=== PATIENT | male | born 1990 | race Caucasian/White ===

== ENCOUNTER 2020-08-04 20:56 | Inpatient (IN) ==
[2020-08-04] MEDS ORDERED: IOPAMIDOL 100 ML BOTTLE IV ONE (20:57)
[2020-08-04] MEDS ORDERED: ONDANSETRON 4 MG/2 ML VIAL IV ONE (21:30)
[2020-08-04] MEDS ORDERED: 0.9 % SODIUM CHLORIDE 2,000 ML IV ONE (21:30)
[2020-08-04] MEDS ORDERED: VANCOMYCIN 2,000 MG in 0.9 % SODIUM CHLORIDE 500 ML IV ONE (21:30)
[2020-08-04] MEDS ORDERED: cefTRIAXone 2 GM in DEXTROSE 5% IN WATER 50 ML IV ONE (21:32)
[2020-08-04] MEDS ORDERED: ACETAMINOPHEN 1,000 MG/100 ML BAG IV ONE (21:35)
[2020-08-04] MEDS ORDERED: KETOROLAC 30 MG/ML VIAL IV ONE (21:36)
--- NOTE | 2020-08-04 21:43 | Emergency Department Note ---
Skin/Abscess/FB HPI General Chief complaint: Skin/Abscess/Rash Stated complaint: IV drug use infection Time Seen by Provider: 08/04/20 21:15 Source: patient Mode of arrival: ambulatory Limitations: no limitations History of Present Illness HPI Narrative: This is a 30-year-old male with a history of IV drug use (heroin) with last injection to the left upper extremity 5 days ago who developed left upper extremity cellulitis over the last few days with with associated chills and sweats. He reports withdrawal symptoms and has been having frequent diarrhea and 2 episodes of urinary incontinence. He denies abdominal pain, dysuria. He's had frequent episodes of lightheadedness and dizziness. He is also endorsing "hallucinations." He denies other illicit drug use and uses marijuana moderately. He does not drink alcohol. He is also complaining of some left anterior knee pain that started yesterday. He thinks he might of fallen but cannot remember. He endorses painful range of motion. No swelling in the knee. No previous injuries or surgeries to that knee. His remaining past medical history is unremarkable. He has not been through rehab before, but is interested in pursuing a drug rehabilitation program. He lives locally with a friend's grandmother. His mother is also here locally. Related Data Home Medications Medication Instructions Recorded Confirmed No Known Home Meds 07/11/16 08/04/20 Allergies Allergy/AdvReac Type Severity Reaction Status Date / Time No Known Drug Allergies Allergy Verified 07/11/16 14:18 Review of Systems ROS ROS Narrative: Narrative: All systems ED: reviewed and negative except as stated. [facility] Narrative Patient History Narrative: Narrative: Medical/Surgical/Family History All Active Problems Laceration (Acute) Sepsis (Acute) Cellulitis (Acute) IVDU (intravenous drug user) (Acute) Medical History Laceration (Acute) Social History Smoking Status: Current every day smoker Exam Narrative Narrative: General: AOx3, NAD, ill appearing. Following commands. Conversant. HEENT: PERRLA, EOMI, normocephalic. Dry mucous membranes. Normal facies and several fractured teeth are noted. Multiple excoriations to the face. Chest: Symmetric Respiratory: No respiratory distress. Unlabored breathing. Heart: Tachycardia with regular rhythm. Abdomen: Non-tender, Non distended. No organomegaly. Extremities: Warm and well perfused. No edema. DP 2+ bilaterally. Notable left upper extremity erythema extending from the dorsal aspect of the upper e xtremity circumferentially to the palm of the left hand. There is significant warmth to the touch and swelling but no fluctuance, open wounds or drainage. Left knee: Warm to the touch. No erythema, no effusion. Pain with palpation and compression of the patella. Painful knee extension and flexion. Neuro: No focal deficits. Cranial nerves II-XII normal. Skin: Warm dry, no rashes or lesions, no cyanosis. Psych: Normal mood and affect Heme/Lymph: No bruising General Limitations: no limitations Course Course Course Narrative: 30-year-old male with a history of IV drug use presents with criteria for sepsis. Reevaluation(s) Reevaluation #1: Patient is febrile to 101.6 with a pulse of 112 bpm. He has a clear cellulitis of the left upper extremity without obvious fluctuance or abscess formation. -Obtain blood cultures x2, UA and urine drug screen -Basic lab work and CRP -Antipyretics/analgesics for pain and fever -Obtain x-ray of the left knee -Obtain left upper extremity soft tissue ultrasound to query for abscess -Start vancomycin and ceftriaxone IV antibiotics now -Give 2 L IV fluid resuscitation Vital Signs Vital signs: Vital Signs Temperature 101.6 F H 08/04/20 20:57 Pulse Rate 112 H 08/04/20 20:57 Respiratory Rate 18 08/04/20 20:57 Blood Pressure 117/80 08/04/20 20:57 Pulse Oximetry (%) 98 08/04/20 20:57 Temperature 101.6 F H 08/04/20 20:57 Pulse Rate 94 H 08/04/20 22:33 Respiratory Rate 18 08/04/20 20:57 Blood Pressure 113/67 08/04/20 22:32 Pulse Oximetry (%) 96 08/04/20 22:33 [facility] Narrative Medical decision making narrative: Sepsis Left upper extremity cellulitis Recent IV drug use Patient is being worked up for sepsis with blood cultures x2 pending. He has been started on IV antibiotics and IV fluids for resuscitation. A left knee x- ray and left upper extremity ultrasound are pending. The patient is signed out to Dr. De La Cruz at change of shift. Please see his note for further details. Lab Data Result diagrams: 08/04/20 21:35 08/04/20 21:35 Discharge Plan Patient/Caregiver Discharge Instructions Pt seen by WORKERS' COMPENSATION HEARINGS OFFICER/PA only: Yes Clinical Impression: Sepsis, Cellulitis, IVDU (intravenous drug user) Patient Disposition: Still a Patient Follow up with: No,PCP [Primary Care Provider] - Prescriptions: No Action No Known Home Meds RF: 0
[2020-08-04] MEDS ORDERED: APIXABAN 5 MG TABLET PO ONE (22:26)
[2020-08-04 23:00] LABS: Hematocrit 30.5 % (41.0-55.0); Hemoglobin 11.1 g/dL (13.5-16.5); Mean Cell Volume 77.8 fL (80.0-100.0); Mean Corpuscular HGB Conc 36.4 g/dL (31.0-36.0); Mean Platelet Volume 11.7 fL (7.4-10.4); Platelet Count 122 K/mcL (140-440); RBC 3.92 M/mcL (4.50-5.90); Red Cell Distribution Width 12.5 % (11.5-14.5); WBC 19.7 K/mcL (4.5-11.0)
--- NOTE | 2020-08-04 23:02 | Emergency Department Note ---
Skin/Abscess/FB HPI General Chief complaint: Skin/Abscess/Rash Stated complaint: IV drug use infection Time Seen by Provider: 08/04/20 21:15 Source: patient Mode of arrival: ambulatory Limitations: no limitations History of Present Illness HPI Narrative: Narrative: See dictated history and physical by Jessica Patel PA-C. I have reviewed that documentation and agree with it. I have seen and examined patient myself. He gives a history of rigors and sweatiness in the past 5 days. He has not previously been in Suboxone clinics, inpatient treatment, etc. His last use of heroin was IV through his left cubital space area. Scabs on his nose and ear began around 5 or 6 days ago and he is not certain what has caused these. Related Data Home Medications Medication Instructions Recorded Confirmed No Known Home Meds 07/11/16 08/04/20 Allergies Allergy/AdvReac Type Severity Reaction Status Date / Time No Known Drug Allergies Allergy Verified 07/11/16 14:18 Review of Systems ROS ROS Narrative: Narrative: [facility] Narrative Patient History Narrative: Narrative: Medical/Surgical/Family History All Active Problems Deep vein thrombosis (DVT) of left upper extremity (Acute) Heroin withdrawal (Acute) Hyponatremia (Acute) Hypokalemia (Acute) Acute dehydration (Acute) Anemia (Acute) Laceration (Acute) Sepsis (Acute) Cellulitis (Acute) IVDU (intravenous drug user) (Acute) Medical History Laceration (Acute) Social History Smoking Status: Current every day smoker Substance Use: heroin (last use 07/30/2020 reported on 08/04/2020.) Exam Narrative Narrative: Narrative: Patient seems somewhat saddened to serious but does eventually make better eye contact. He admits to being frustrated and concerned with his circumstance. CV: Regular without tachycardia. I believe I can hear a trace early systolic murmur at the left upper sternal border. Lungs: Clear to auscultation. Occasional wet cough. Derm: Has a scab in the right nare that is fairly superficial but seems to extend all the way around it. He has a scab on the left pinna of similar size about dime sized in diameter at maximum diameter. Fairly superficial. Not oozing. Extremities: Left forearm is indeed significantly swollen with some, circumferential erythema/warmth. Distal hand sensation intact and movements intact. He is able to squeeze hand without difficulty. General Limitations: no limitations Course Vital Signs Vital signs: Vital Signs Temperature 101.6 F H 08/04/20 20:57 Pulse Rate 112 H 08/04/20 20:57 Respiratory Rate 18 08/04/20 20:57 Blood Pressure 117/80 08/04/20 20:57 Pulse Oximetry (%) 98 08/04/20 20:57 Temperature 98.1 F 08/05/20 00:54 Pulse Rate 70 08/05/20 01:48 Respiratory Rate 18 08/04/20 20:57 Blood Pressure 104/58 08/05/20 01:30 Pulse Oximetry (%) 97 08/05/20 01:48 MDM MDM Narrative Medical decision making narrative: Narrative: Cellulitis and DVT of the left upper extremity. Appears to also have been experiencing heroin withdrawals these last 5 days. He continues to have severe body aches, some rigors occurred earlier today, some sweatiness as well earlier today. It seems unlikely that this is due to subacute bacterial endocarditis although this is still a possibility. He is not tachycardic. He does not have an elevated lactic acid (1.6). More likely is withdrawals although current complaint primarily generalized body achiness. He has several scabs, right nare and left pinna. We will add mupirocin to these. 10:23 PM - I spoke with Dr. Lo regarding this individual's DVT pattern and pitcher and circumstance. He feels that giving him anticoagulation such as Eliquis for a few days and see if he improves it is appropriate treatment for now. He does not recommend interventional actions. I briefly discussed with patient Gretel. I witnessed him swallowing 2 pills of 5 mg each of apixaban. 12:10 AM approximately - CMP had not come back. Called to the lab made. They soon called back with a critical 114 sodium. POC Chem-8 ordered. 12:30 AM - BUN 39, creatinine 1.4. Patient has had 1 L. We will give a second liter. 12:37 AM - Chem-8 comes back with potassium 2.3 (was 2.7) and sodium at 120 (was 114). We will go with an oral potassium chloride 20, and 80 of potassium rider. Patient has accepted that he does need to stay in the hospital. Notification sent to nursing staff re: need to speak with hospitalist. 1:05 AM - I spoke with Dr. Storm, hospitalist, who recommends that we do a CT scan of the arm to rule out any deeper seeded abscess or unusual abnormalities. He also recommend switching to D5 water to make his sodium go back down a little bit for a slower gradual increase. If the CT scan is negative, admission with antibiotics, Minong 5 and lorazepam as needed for withdrawals, and morning labs. urine and serum osmolality plus random urine sodium ordered. 2:35 AM - CT result still pending, as is UA. Patient was unable to void for quiet a long period. Bladder scan demonstrated over 400 cc's. 2:50 PM - CT initial preliminary report includes 1. CT findings consistent with superficial thrombophlebitis. 2. There is diffuse subcutaneous edema with skin thickening and a fluid extending to the fascial plane. 1 defined fluid collection at the elbow medially measures 2 cm. 3. Diffuse thrombus throughout the superficial veins in the forearm. 4. Follow-up ultrasound is suggested to evaluate for more proximal disease. Urine drug screen comes back with positive on opiates and positive on amphetamines. See transfer orders for patient's admission to the floor. Lab Data Result diagrams: 08/04/20 21:35 08/04/20 21:35 Labs: Lab Results 08/04/20 08/04/20 08/04/20 Range/Units 21:35 21:35 21:35 WBC 19.7 H (4.5-11.0) K/mcL RBC 3.92 L (4.50-5.90) M/mcL Hgb 11.1 L (13.5-16.5) g/dL Hct 30.5 L (41.0-55.0) % POC Hct (41-55) % MCV 77.8 L (80.0-100.0) fL MCH 28.3 (26.0-34.0) pg MCHC 36.4 H (31.0-36.0) g/dL RDW 12.5 (11.5-14.5) % Plt Count 122 L (140-440) K/mcL MPV 11.7 H (7.4-10.4) fL Seg Neutrophils % 82 H (38-78) % Band Neutrophils % 4 (0-10) % Lymphocytes % 6 L (15-49) % Monocytes % (Manual) 8 (1-12) % Toxic Granulation 1+ A (None Seen) Platelet Estimate Decreased A (Normal) RBC Morphology Abnormal A (Normal) Microcytosis 1+ A (None Seen) POC Sodium (133-145) mEq/L Sodium 114 L* (133-145) mmol/L POC Potassium (3.3-5.1) mEql/L Potassium 2.7 L* (3.3-5.1) mmol/L POC Chloride (96-108) mEq/L Chloride 76 L (96-108) mmol/L Carbon Dioxide 20 L (22-30) mmol/L POC Total CO2 (22-30) mmol/L Anion Gap 18.0 H (8.0-16.0) POC BUN (6-20) mg/dL BUN 39 H (6-20) mg/dL Creatinine 1.4 H (0.7-1.2) mg/dL POC Creatinine (0.6-1.2) mg/dL GFR Calculation 67 Glucose 97 (70-105) mg/dL POC Glucose (70-105) mg/dL Osmolality (280-300) mOSM/kg Calcium 7.2 L (8.6-10.4) mg/dL POC WB Ioniz Calcium (1.16-1.32) mmEq/L Total Bilirubin 1.9 H (0.1-1.0) mg/dL AST 190 H (<40) U/L ALT 85 H (<40) U/L Alkaline Phosphatase 140 H (39-117) U/L Total Creatine Kinase (24-195) U/L C-Reactive Protein 14.20 H (0.03-0.80) mg/dL Total Protein 6.2 (5.9-8.4) gm/dL Albumin 2.9 L (3.2-5.2) gm/dL Globulin 3.3 (2.2-3.7) gm/dL Albumin/Globulin Ratio 0.9 L (1.0-2.3) 08/04/20 08/04/20 08/05/20 Range/Units 21:35 21:35 00:11 WBC (4.5-11.0) K/mcL RBC (4.50-5.90) M/mcL Hgb (13.5-16.5) g/dL Hct (41.0-55.0) % POC Hct 28 L (41-55) % MCV (80.0-100.0) fL MCH (26.0-34.0) pg MCHC (31.0-36.0) g/dL RDW (11.5-14.5) % Plt Count (140-440) K/mcL MPV (7.4-10.4) fL Seg Neutrophils % (38-78) % Band Neutrophils % (0-10) % Lymphocytes % (15-49) % Monocytes % (Manual) (1-12) % Toxic Granulation (None Seen) Platelet Estimate (Normal) RBC Morphology (Normal) Microcytosis (None Seen) POC Sodium 120 L (133-145) mEq/L Sodium (133-145) mmol/L POC Potassium 2.3 L* (3.3-5.1) mEql/L Potassium (3.3-5.1) mmol/L POC Chloride 89 L (96-108) mEq/L Chloride (96-108) mmol/L Carbon Dioxide (22-30) mmol/L POC Total CO2 18 L (22-30) mmol/L Anion Gap (8.0-16.0) POC BUN 33 H (6-20) mg/dL BUN (6-20) mg/dL Creatinine (0.7-1.2) mg/dL POC Creatinine 1.6 H (0.6-1.2) mg/dL GFR Calculation Glucose (70-105) mg/dL POC Glucose 100 (70-105) mg/dL Osmolality 252 L (280-300) mOSM/kg Calcium (8.6-10.4) mg/dL POC WB Ioniz Calcium 0.89 L (1.16-1.32) mmEq/L Total Bilirubin (0.1-1.0) mg/dL AST (<40) U/L ALT (<40) U/L Alkaline Phosphatase (39-117) U/L Total Creatine Kinase 33 (24-195) U/L C-Reactive Protein (0.03-0.80) mg/dL Total Protein (5.9-8.4) gm/dL Albumin (3.2-5.2) gm/dL Globulin (2.2-3.7) gm/dL Albumin/Globulin Ratio (1.0-2.3) Discharge Plan Patient/Caregiver Discharge Instructions Pt seen by BIOLOGY PROFESSOR/PA only: Yes Clinical Impression: Sepsis, Cellulitis, IVDU (intravenous drug user), Deep vein thrombosis (DVT) of left upper extremity, Heroin withdrawal, Hyponatremia, Hypokalemia, Acute dehydration, Anemia Patient Disposition: Xfer As Inpt ([facility]) Follow up with: No,PCP [Primary Care Provider] - Prescriptions: No Action No Known Home Meds RF: 0
[2020-08-04] MEDS ORDERED: MUPIROCIN OINT 2% 22GM TOPICAL ONE (23:13)
[2020-08-04 23:20] LABS: Band Neutrophils % 4 % (0-10); Lymphocytes % 6 % (15-49); Microcytosis 1+ (None Seen); Monocytes % (Manual) 8 % (1-12); Platelet Estimate DECREASED (Normal); RBC Morphology ABNORMAL (Normal); Segmented Neutrophils % 82 % (38-78); Toxic Granulation 1+ (None Seen)
[2020-08-05 00:10] LABS: ALT/SGPT 85 U/L (<40); AST/SGOT 190 U/L (<40); Albumin 2.9 gm/dL (3.2-5.2); Albumin/Globulin Ratio 0.9 (1.0-2.3); Alkaline Phosphatase 140 U/L (39-117); Bilirubin,Total 1.9 mg/dL (0.1-1.0); Blood Urea Nitrogen 39 mg/dL (6-20); Calcium 7.2 mg/dL (8.6-10.4); Carbon Dioxide 20 mmol/L (22-30); Chloride 76 mmol/L (96-108); Globulin 3.3 gm/dL (2.2-3.7); Glomerular Filtration Rate 67; Glucose 97 mg/dL (70-105)
[2020-08-05] MEDS ORDERED: cloNIDine HCL 0.1 MG TABLET PO SCH (00:15)
[2020-08-05] MEDS ORDERED: 0.9 % SODIUM CHLORIDE 1,000 ML IV ONE (00:31)
[2020-08-05] MEDS ORDERED: POTASSIUM CHLORIDE 40 MEQ in DEXTROSE 5% IN WATER 500 ML IV ONE (00:34)
[2020-08-05] MEDS ORDERED: POTASSIUM CHLORIDE 20 MEQ TABLET PO ONE ×3 (00:34→13:06)
[2020-08-05 00:35] LABS: POC Blood Urea Nitrogen 33 mg/dL (6-20); POC CO2 18 mmol/L (22-30); POC Calcium, Ionized 0.89 mmEq/L (1.16-1.32); POC Chloride 89 mEq/L (96-108); POC Creatinine 1.6 mg/dL (0.6-1.2); POC Glucose, Random 100 mg/dL (70-105); POC Hematocrit 28 % (41-55); POC Potassium 2.3 mEql/L (3.3-5.1); POC Sodium 120 mEq/L (133-145)
[2020-08-05] MEDS ORDERED: DEXTROSE 5% IN WATER 1,000 ML IV SCH (01:15)
[2020-08-05] MEDS ORDERED: POTASSIUM CHLORIDE 20 MEQ/10 ML VIAL IV ONE (01:39)
[2020-08-05] MEDS ORDERED: LORazepam 2 MG/ML VIAL IV PRN (02:31)
[2020-08-05 03:02] LABS: Sodium, Urine Random 10 mmol/L
[2020-08-05 03:05] LABS: Amphetamine Screen,Urine Suspect positive; Appearance,Urine HAZY (Clear); Barbiturate Screen,Urine None detected; Benzodiazepines Screen,Urine None detected; Bilirubin,Urine Negative (Negative); Cannabinoid Screen,Urine None detected; Cocaine Screen,Urine None detected; Color,Urine AMBER; Culture Indicated,Urine No; Glucose,Urine (UA) Negative (Negative); Ketones,Urine Negative (Negative); Leukocyte Esterase,Urine Negative /ug (Negative); Mucus,Urine FEW /hpf; Nitrate,Urine Negative (Negative); Opiate Screen,Urine Suspect Positive; Oxycodone, Urine Screen None detected; Phencyclidine Screen,Urine None detected; Protein,Urine 100 mg/dL (Negative); Specific Gravity,Urine 1.017 (1.000-1.035); Uric Acid Crystals,Urine FEW /hpf; Urine Amorphous Crystals FEW /hpf; Urine Blood 0.03 mg/dL (Negative); Urine RBC 1 /hpf (0-3); Urine Squamous Epithelial Cell < 1 /hpf (0-4); Urine WBC 8 /hpf (0-4)
[2020-08-05 03:09] LABS: Osmolality,Urine 510 mOSM/kg (80-1000)
[2020-08-05] MEDS: HYDROcodone/APAP 5/325MG TABLET PO PRN ×2 (05:43→10:14)
[2020-08-05 05:54] LABS: Basophils # (Auto) 0.04 K/mcL (0.00-0.20); Basophils % (Auto) 0.2 % (0.0-2.0); Eosinophils # (Auto) 0.15 K/mcL (0.00-0.70); Eosinophils % (Auto) 0.9 % (0.0-7.0); Hematocrit 27.4 % (41.0-55.0); Hemoglobin 9.7 g/dL (13.5-16.5); Lymphocytes # (Auto) 1.58 K/mcL (1.50-4.80); Lymphocytes % (Auto) 9.7 % (15.0-49.0); Mean Cell Volume 79.9 fL (80.0-100.0); Mean Corpuscular HGB Conc 35.4 g/dL (31.0-36.0); Mean Platelet Volume 12.1 fL (7.4-10.4); Monocytes # (Auto) 1.36 K/mcL (0.10-0.90); Monocytes % (Auto) 8.4 % (1.0-12.0); Neutrophils % (Auto) 80.8 % (38.0-78.0); Platelet Count 109 K/mcL (140-440); RBC 3.43 M/mcL (4.50-5.90); WBC 16.3 K/mcL (4.5-11.0)
[2020-08-05 06:23] LABS: ALT/SGPT 71 U/L (<40); AST/SGOT 123 U/L (<40); Albumin 2.1 gm/dL (3.2-5.2); Albumin/Globulin Ratio 0.7 (1.0-2.3); Alkaline Phosphatase 114 U/L (39-117); Bilirubin,Direct 1.1 mg/dL (<0.3); Bilirubin,Total 1.3 mg/dL (0.1-1.0); Blood Urea Nitrogen 39 mg/dL (6-20); Calcium 6.6 mg/dL (8.6-10.4); Carbon Dioxide 19 mmol/L (22-30); Chloride 89 mmol/L (96-108); Glomerular Filtration Rate 53; Glucose 122 mg/dL (70-105); Lactate Dehydrogenase 211 U/L (135-225); Triglycerides 270 mg/dL (<150); Uric Acid 4.8 mg/dL (2.5-8.0)
[2020-08-05] MEDS ORDERED: cloNIDine HCL 0.1 MG TABLET PO PRN (07:27)
[2020-08-05] MEDS ORDERED: METHADONE 5 MG TABLET PO PRN (07:27)
[2020-08-05 07:30] LABS: POC Blood Urea Nitrogen 33 mg/dL (6-20); POC CO2 17 mmol/L (22-30); POC Chloride 95 mEq/L (96-108); POC Creatinine 1.3 mg/dL (0.6-1.2); POC Glucose, Random 118 mg/dL (70-105); POC Hematocrit 30 % (41-55); POC Potassium 3.2 mEql/L (3.3-5.1); POC Sodium 120 mEq/L (133-145)
[2020-08-05] MEDS ORDERED: PROMETHAZINE 25 MG/ML VIAL IV PRN (07:51)
[2020-08-05] MEDS ORDERED: LOPERAMIDE 2 MG CAPSULE PO PRN (07:51)
--- NOTE | 2020-08-05 07:54 | Internal Med History&Physical ---
HPI History of Present Illness Patient information: Note initiated : 08/05/20 at 7:49 am Service Date, if different from initiated Date: [] Patient: Cash Dumont a 30 y/o M admitted on 08/05/20 for IV drug use infection. Chief Complaint: [] History of present illness: Mr. Dumont is a 30 year old M Presents the ED with body aches diarrhea headaches and fever with the left arm that is red painful and swollen. Last used IV heroin about 4-5 days ago and felt he missed the vein. Also reports opiate withdrawal symptoms including diarrhea and abdominal achiness and urinary continence. Has had lightheadedness and dizziness. Reports hallucinations. He does use marijuana as well and occasionally uses methamphetamine. Review of Systems: Pertinent positives as above. Denies nausea/vomiting/chest pain/cough/dyspnea. Remaining 10 point review of system reviewed negative. PFSH PFSH All Active Problems Deep vein thrombosis (DVT) of left upper extremity (Acute) Heroin withdrawal (Acute) Hyponatremia (Acute) Hypokalemia (Acute) Acute dehydration (Acute) Anemia (Acute) Laceration (Acute) Sepsis (Acute) Cellulitis (Acute) IVDU (intravenous drug user) (Acute) Medical History Laceration (Acute) Social History smoking status: Current every day smoker substance use type: heroin (last use 07/30/2020 reported on 08/04/2020.) MEDS/ALLERGIES Home Medications and Allergies Home Medications Medication Instructions Recorded Confirmed Type No Known Home Meds 07/11/16 08/05/20 History Allergies Allergy/AdvReac Type Severity Reaction Status Date / Time No Known Drug Allergies Allergy Verified 08/05/20 05:34 EXAM Constitutional Vitals: Temp Pulse Resp BP Pulse Ox 97.3 F 63 19 103/65 100 08/05/20 04:10 08/05/20 06:04 08/05/20 07:01 08/05/20 07:01 08/05/20 07:01 Exam: General: Alert, Awake, No acute Distress Eyes/N/T: EOMI, PERRL, dry MM Head/Neck: neck supple, normocephalic atraumatic CV: RRR, No murmurs, normal s1/s2 Pulm: Clear b/l, no wheezing/rhonchi/rales Abd: soft, nontender, +BS x4 Ext: no clubbing/cyanosis/edema LE's, LUE from elbow to wrist is erythematous/edematous/tender to touch/indurated. Neuro: Alert, no focal deficits, moves all extremities, CN 2-12 grossly intact, symmetrical strength b/l upper/lower, sensations intact b/l upper/lower Skin: warm/dry DATA Data Completed and Pending Labs: Labs from last 24 hours 08/05/20 08/05/20 08/05/20 07:19 04:35 04:35 WBC 16.3 H RBC 3.43 L Hgb 9.7 L Hct 27.4 L POC Hct 30 L MCV 79.9 L MCH 28.3 MCHC 35.4 RDW 13.0 Plt Count 109 L MPV 12.1 H Neut % (Auto) 80.8 H Lymph % (Auto) 9.7 L [place] % (Auto) 8.4 Eos % (Auto) 0.9 Baso % (Auto) 0.2 Lymph # (Auto) 1.58 [place] # (Auto) 1.36 H Eos # (Auto) 0.15 Baso # (Auto) 0.04 Seg Neutrophils % Band Neutrophils % Lymphocytes % Monocytes % (Manual) Absolute Neutrophils 13.15 H Toxic Granulation Platelet Estimate RBC Morphology Microcytosis POC Sodium 120 L Sodium 118 L* POC Potassium 3.2 L Potassium 2.9 L* POC Chloride 95 L Chloride 89 L Carbon Dioxide 19 L POC Total CO2 17 L Anion Gap 10.0 POC BUN 33 H BUN 39 H Creatinine 1.7 H POC Creatinine 1.3 H GFR Calculation 53 Glucose 122 H POC Glucose 118 H Osmolality Uric Acid 4.8 Calcium 6.6 L POC WB Ioniz Calcium 0.80 L Phosphorus 2.0 L Magnesium 2.6 H Total Bilirubin 1.3 H Direct Bilirubin 1.1 H GGT 59 AST 123 H ALT 71 H Alkaline Phosphatase 114 Lactate Dehydrogenase 211 Total Creatine Kinase C-Reactive Protein Total Protein 5.1 L Albumin 2.1 L Globulin 3.0 Albumin/Globulin Ratio 0.7 L Triglycerides 270 H Urine Color Urine Appearance Urine pH Ur Specific [place] Urine Protein Urine Glucose (UA) Urine Ketones Urine Occult Blood Urine Nitrate Urine Bilirubin Urine Urobilinogen Ur Leukocyte Esterase Urine RBC Urine WBC Ur Squamous Epith Cells Uric Acid Crystals Amorphous Crystals Urine Bacteria Urine Mucus Ur Culture Indicated? Urine Osmolality Ur Random Sodium Urine Opiates Screen Ur Opiates Confirm Ur Oxycodone Screen Urine Methadone Screen Ur Barbiturates Screen Ur Barbiturate Confirm Ur Phencyclidine Scrn Ur Amphetamines Screen U Benzodiazepines Scrn Urine Cocaine Screen U Marijuana (THC) Screen 08/05/20 08/05/20 08/05/20 01:43 01:43 01:43 WBC RBC Hgb Hct POC Hct MCV MCH MCHC RDW Plt Count MPV Neut % (Auto) Lymph % (Auto) [place] % (Auto) Eos % (Auto) Baso % (Auto) Lymph # (Auto) [place] # (Auto) Eos # (Auto) Baso # (Auto) Seg Neutrophils % Band Neutrophils % Lymphocytes % Monocytes % (Manual) Absolute Neutrophils Toxic Granulation Platelet Estimate RBC Morphology Microcytosis POC Sodium Sodium POC Potassium Potassium POC Chloride Chloride Carbon Dioxide POC Total CO2 Anion Gap POC BUN BUN Creatinine POC Creatinine GFR Calculation Glucose POC Glucose Osmolality Uric Acid Calcium POC WB Ioniz Calcium Phosphorus Magnesium Total Bilirubin Direct Bilirubin GGT AST ALT Alkaline Phosphatase Lactate Dehydrogenase Total Creatine Kinase C-Reactive Protein Total Protein Albumin Globulin Albumin/Globulin Ratio Triglycerides Urine Color [place] Urine Appearance Hazy A Urine pH 5.0 Ur Specific [place] 1.017 Urine Protein 100 A Urine Glucose (UA) Negative Urine Ketones Negative Urine Occult Blood 0.03 Urine Nitrate Negative Urine Bilirubin Negative Urine Urobilinogen 2.0 A Ur Leukocyte Esterase Negative Urine RBC 1 Urine WBC 8 H Ur Squamous Epith Cells < 1 Uric Acid Crystals Few A Amorphous Crystals Few A Urine Bacteria None Urine Mucus Few A Ur Culture Indicated? No Urine Osmolality 510 Ur Random Sodium 10 Urine Opiates Screen Suspect positive A Ur Opiates Confirm Not Reportable Ur Oxycodone Screen None detected Urine Methadone Screen None detected Ur Barbiturates Screen None detected Ur Barbiturate Confirm Not Reportable Ur Phencyclidine Scrn None detected Ur Amphetamines Screen Suspect positive A U Benzodiazepines Scrn None detected Urine Cocaine Screen None detected U Marijuana (THC) Screen None detected 08/05/20 08/04/20 08/04/20 00:11 21:35 21:35 WBC RBC Hgb Hct POC Hct 28 L MCV MCH MCHC RDW Plt Count MPV Neut % (Auto) Lymph % (Auto) [place] % (Auto) Eos % (Auto) Baso % (Auto) Lymph # (Auto) [place] # (Auto) Eos # (Auto) Baso # (Auto) Seg Neutrophils % Band Neutrophils % Lymphocytes % Monocytes % (Manual) Absolute Neutrophils Toxic Granulation Platelet Estimate RBC Morphology Microcytosis POC Sodium 120 L Sodium POC Potassium 2.3 L* Potassium POC Chloride 89 L Chloride Carbon Dioxide POC Total CO2 18 L Anion Gap POC BUN 33 H BUN Creatinine POC Creatinine 1.6 H GFR Calculation Glucose POC Glucose 100 Osmolality 252 L Uric Acid Calcium POC WB Ioniz Calcium 0.89 L Phosphorus Magnesium Total Bilirubin Direct Bilirubin GGT AST ALT Alkaline Phosphatase Lactate Dehydrogenase Total Creatine Kinase 33 C-Reactive Protein Total Protein Albumin Globulin Albumin/Globulin Ratio Triglycerides Urine Color Urine Appearance Urine pH Ur Specific [place] Urine Protein Urine Glucose (UA) Urine Ketones Urine Occult Blood Urine Nitrate Urine Bilirubin Urine Urobilinogen Ur Leukocyte Esterase Urine RBC Urine WBC Ur Squamous Epith Cells Uric Acid Crystals Amorphous Crystals Urine Bacteria Urine Mucus Ur Culture Indicated? Urine Osmolality Ur Random Sodium Urine Opiates Screen Ur Opiates Confirm Ur Oxycodone Screen Urine Methadone Screen Ur Barbiturates Screen Ur Barbiturate Confirm Ur Phencyclidine Scrn Ur Amphetamines Screen U Benzodiazepines Scrn Urine Cocaine Screen U Marijuana (THC) Screen 08/04/20 08/04/20 08/04/20 21:35 21:35 21:35 WBC 19.7 H RBC 3.92 L Hgb 11.1 L Hct 30.5 L POC Hct MCV 77.8 L MCH 28.3 MCHC 36.4 H RDW 12.5 Plt Count 122 L MPV 11.7 H Neut % (Auto) Lymph % (Auto) [place] % (Auto) Eos % (Auto) Baso % (Auto) Lymph # (Auto) [place] # (Auto) Eos # (Auto) Baso # (Auto) Seg Neutrophils % 82 H Band Neutrophils % 4 Lymphocytes % 6 L Monocytes % (Manual) 8 Absolute Neutrophils Toxic Granulation 1+ A Platelet Estimate Decreased A RBC Morphology Abnormal A Microcytosis 1+ A POC Sodium Sodium 114 L* POC Potassium Potassium 2.7 L* POC Chloride Chloride 76 L Carbon Dioxide 20 L POC Total CO2 Anion Gap 18.0 H POC BUN BUN 39 H Creatinine 1.4 H POC Creatinine GFR Calculation 67 Glucose 97 POC Glucose Osmolality Uric Acid Calcium 7.2 L POC WB Ioniz Calcium Phosphorus Magnesium Total Bilirubin 1.9 H Direct Bilirubin GGT AST 190 H ALT 85 H Alkaline Phosphatase 140 H Lactate Dehydrogenase Total Creatine Kinase C-Reactive Protein 14.20 H Total Protein 6.2 Albumin 2.9 L Globulin 3.3 Albumin/Globulin Ratio 0.9 L Triglycerides Urine Color Urine Appearance Urine pH Ur Specific [place] Urine Protein Urine Glucose (UA) Urine Ketones Urine Occult Blood Urine Nitrate Urine Bilirubin Urine Urobilinogen Ur Leukocyte Esterase Urine RBC Urine WBC Ur Squamous Epith Cells Uric Acid Crystals Amorphous Crystals Urine Bacteria Urine Mucus Ur Culture Indicated? Urine Osmolality Ur Random Sodium Urine Opiates Screen Ur Opiates Confirm Ur Oxycodone Screen Urine Methadone Screen Ur Barbiturates Screen Ur Barbiturate Confirm Ur Phencyclidine Scrn Ur Amphetamines Screen U Benzodiazepines Scrn Urine Cocaine Screen U Marijuana (THC) Screen A/P Narrative A/P Narrative: A: *LUE cellulits: *sepsis: lactate wnl -febrile, leukocytosis improving on f/u *LUE venous thrombosis: case discussed with Dr. Lo, no need for intervention - just anticoagulation *Hyponatremia, hypo-osmol: 2/2 to free water loss (diarrhea/volume depletion) *Hypokalemia/hypocalcemia: *EMELINA: 2/2 above *volume depletion: *Substance abuse with heroin/methamphetamines/marijuana use: -UDS with opioids and Meth *Transaminitis: 2/2 likley substance abuse (meth), *Tobacco abuse: * P: -Vanc/Rocephin, pending BC -IVF's, monitor sodium -lovenox bid -prn methatonde/clonidine/impodium/promethazine for w/d symptoms -check liver/renal ultrasound -hepatits panel - -offer referral to Dr. Thakur -Smoking cessation counseling -ppx: lovenox bid Time Spent With Patient Time: Total time spent is greater than 50% in coordination of care (as documented) at patient's floor/unit and/or counseling patient: QUALITY VTE Deep Vein Thrombosis/Pulmonary Embolism Present on Admission: Yes
[2020-08-05] MEDS ORDERED: CALCIUM GLUCONATE 4.65 MEQ in DEXTROSE 5% IN WATER 50 ML IV ONE (08:04)
--- NOTE | 2020-08-05 08:09 | Ultrasound Report ---
History: IV drug user with infection in the left forearm FINDINGS: There is erythema on the left forearm. Beneath the erythematous skin there is thickening of subcutaneous tissues and edema but no abscess is present. The patient has superficial thrombosis of the veins in the left forearm. These propagate proximally into the antecubital vein, basilic, cephalic and axillary vein. There is also occlusive thrombus in the distal portion of the left subclavian vein. IMPRESSION: Cellulitis but no evidence of abscess in the forearm Deep venous thrombosis extending from the mid forearm to the distal left subclavian vein Interpreted and Authenticated by: Speedy Hayes 08/05/20
--- NOTE | 2020-08-05 08:11 | XRay Report ---
HISTORY: IV drug user with sepsis FINDINGS: The lungs are clear and well expanded. The heart, mediastinum, michael, pleura and bones are normal. IMPRESSION: Normal exam Interpreted and Authenticated by: Speedy Hayes 08/05/20
--- NOTE | 2020-08-05 08:11 | XRay Report ---
HISTORY: Generalized left knee pain FINDINGS: No fracture, dislocation, degenerative change or inflammation are seen. Joint spaces are normal in width and there is no joint effusion. No foreign body or gas are present in the soft tissues. IMPRESSION: Normal exam Interpreted and Authenticated by: Speedy Hayes 08/05/20
[2020-08-05] MEDS ORDERED: DEXTROSE 5% IN WATER 250 ML IV SCH (08:15)
--- NOTE | 2020-08-05 08:21 | Cat Scan Report ---
History: IV drug user with cellulitis in the left forearm, evaluate for deep abscess TECHNIQUE: Following injection of intravenous nonionic contrast the patient was scanned from the wrist to the distal humerus. Sagittal and coronal reformats were created. The radiation exposure was limited using dose reduction technology. FINDINGS: There is severe cellulitis and edema throughout the forearm from the elbow towards the wrist. There is a band of fluid adjacent to the deep fascia surrounding the muscles both ventral and dorsally in the proximal and mid forearm. A small loculated pocket of fluid is present beneath the skin in the antecubital fossa, which measures 1.2 x 1.8 cm. This is seen on axial image #205. Adjacent to this there are multiple thrombosed superficial and deep veins. Superficial and deep venous thrombosis is present from the distal forearm to above the level of the humerus. Ultrasound performed following the CT scan demonstrated thrombus propagating up to the axilla. The rojas of the thrombosed vessels enhance with contrast due to thrombophlebitis. The bones in the forearm and distal humerus are normally mineralized, without evidence of osteomyelitis. There is no evidence of fracture. The elbow joint space is normal without evidence of an effusion. IMPRESSION: Severe cellulitis throughout the forearm with a small subcutaneous pocket of fluid in the antecubital fossa which may be a tiny abscess. Superficial and deep venous thrombophlebitis and occlusion from the distal forearm to the upper arm Interpreted and Authenticated by: Speedy Hayes 08/05/20
[2020-08-05] MEDS ORDERED: IPRATROPIUM/ALBUTEROL 3 ML AMPUL.NEB NEB PRN (08:25)
[2020-08-05] MEDS ORDERED: LACTULOSE 20 GM/30 ML ORAL.SOL PO PRN (08:25)
[2020-08-05] MEDS ORDERED: ONDANSETRON 4 MG/2 ML VIAL IV PRN (08:25)
[2020-08-05] MEDS ORDERED: MAGNESIUM SULFATE 2 GM/50 ML BAG IV PRN (08:25)
[2020-08-05] MEDS ORDERED: POTASSIUM CHLORIDE 40 MEQ in DEXTROSE 5% IN WATER 500 ML IV PRN (08:25)
[2020-08-05] MEDS ORDERED: SENNOSIDES 1 TABLET PO PRN (08:25)
[2020-08-05] MEDS ORDERED: ACETAMINOPHEN 325 MG TABLET PO PRN (08:25)
[2020-08-05] MEDS ORDERED: POTASSIUM CHLORIDE 20 MEQ TABLET PO PRN ×2 (08:25)
[2020-08-05] MEDS ORDERED: VANCOMYCIN PER PHARMACY IV SCH (08:25)
--- NOTE | 2020-08-05 09:03 | Ultrasound Report ---
History: Acute kidney injury FINDINGS: Right kidney measures 6.4 x 6.7 x 12.1 cm. The left measures 5.8 x 6.2 x 12.1 cm. The parenchyma is normal in thickness and echogenicity. There is no evidence of a mass, cyst, calculus or hydronephrosis. Doppler shows normal symmetric blood flow. Doppler also demonstrated flow of urine through both ureters into the bladder. The bladder is distended and contains 643 cc of urine. The wall is normal in thickness and there is no intraluminal mass. Incidentally noted is mild splenomegaly. The spleen measures 14.1 cm in greatest dimension. The spleen is homogeneous. IMPRESSION: Anatomically normal kidneys Mild splenomegaly Interpreted and Authenticated by: Speedy Hayes 08/05/20
[2020-08-05] MEDS: DOCUSATE SODIUM 100 MG CAPSULE PO SCH ×2 (09:21→21:47)
[2020-08-05] MEDS: VANCOMYCIN 1,000 MG in 0.9 % SODIUM CHLORIDE 250 ML IV SCH ×2 (09:23→21:47)
[2020-08-05] MEDS: cefTRIAXone 2 GM in DEXTROSE 5% IN WATER 50 ML IV SCH (09:23)
--- NOTE | 2020-08-05 09:51 | Ultrasound Report ---
History: IV drug user with elevated liver transaminase levels and sepsis FINDINGS: The liver is normal in size and homogeneous without evidence of mass or inflammation. Doppler shows normal blood flow in the hepatic and portal veins. Gallbladder is partially contracted and there is uniform thickening of the wall. It measures 4 mm. No stone or sludge are seen within the lumen. The patient was nontender while scanning over the gallbladder. The intra and extrahepatic bile ducts are normal in caliber with the common duct measuring 2 mm. No ascites is present in the right upper quadrant. Visualized portions of the pancreas are normal. IMPRESSION: Anatomically normal liver. Contracted gallbladder with diffuse thickened rojas. This is nonspecific finding which may be seen after eating. Acute cholecystitis is a consideration. However, the lack of tenderness while scanning over the gallbladder and no surrounding fluid make this is less likely. Severe hypoalbuminemia and hepatitis are other considerations. Interpreted and Authenticated by: Speedy Hayes 08/05/20
[2020-08-05 10:09] LABS: Hepatitis B Surface Antigen Negative (Negative)
[2020-08-05] MEDS: LORazepam 2 MG/ML VIAL IV PRN ×2 (10:17→21:47)
[2020-08-05] MEDS: ENOXAPARIN 80 MG/0.8 ML SYRINGE SQ SCH ×2 (11:34→21:48)
[2020-08-05 12:12] LABS: POC Blood Urea Nitrogen 29 mg/dL (6-20); POC CO2 17 mmol/L (22-30); POC Calcium, Ionized 1.01 mmEq/L (1.16-1.32); POC Chloride 96 mEq/L (96-108); POC Creatinine 1.3 mg/dL (0.6-1.2); POC Glucose, Random 117 mg/dL (70-105); POC Hematocrit 30 % (41-55); POC Potassium 2.7 mEql/L (3.3-5.1); POC Sodium 125 mEq/L (133-145)
[2020-08-05] MEDS: 0.9 % SODIUM CHLORIDE 10 ML SYRINGE IV SCH ×2 (12:55→21:48)
[2020-08-05] MEDS ORDERED: DEXTROSE 5% IN WATER 500 ML IV SCH ×2 (13:15→16:15)
[2020-08-05 15:52] LABS: POC Blood Urea Nitrogen 27 mg/dL (6-20); POC CO2 19 mmol/L (22-30); POC Calcium, Ionized 1.06 mmEq/L (1.16-1.32); POC Chloride 98 mEq/L (96-108); POC Creatinine 1.2 mg/dL (0.6-1.2); POC Glucose, Random 97 mg/dL (70-105); POC Hematocrit 32 % (41-55); POC Potassium 3.5 mEql/L (3.3-5.1); POC Sodium 127 mEq/L (133-145)
[2020-08-05] MEDS ORDERED: DESMOPRESSIN ACETATE 2 MCG in 0.9 % SODIUM CHLORIDE 50 ML IV ONE (16:02)
[2020-08-05] MEDS: DESMOPRESSIN ACETATE 4 MCG/ML AMPUL IV SCH ×2 (16:41→22:52)
[2020-08-05 16:44] LABS: Blood Urea Nitrogen 30 mg/dL (6-20); Calcium 7.4 mg/dL (8.6-10.4); Carbon Dioxide 19 mmol/L (22-30); Chloride 93 mmol/L (96-108); Glomerular Filtration Rate 101; Glucose 98 mg/dL (70-105)
[2020-08-05] MEDS ORDERED: DESMOPRESSIN ACETATE 2 MCG in 0.9 % SODIUM CHLORIDE 50 ML IV SCH (18:00)
[2020-08-05 18:44] LABS: POC Blood Urea Nitrogen 25 mg/dL (6-20); POC CO2 18 mmol/L (22-30); POC Calcium, Ionized 1.05 mmEq/L (1.16-1.32); POC Chloride 99 mEq/L (96-108); POC Glucose, Random 122 mg/dL (70-105); POC Hematocrit 31 % (41-55); POC Potassium 3.8 mEql/L (3.3-5.1); POC Sodium 126 mEq/L (133-145)
[2020-08-06] MEDS: HYDROcodone/APAP 5/325MG TABLET PO PRN (02:28)
[2020-08-06] MEDS: LORazepam 2 MG/ML VIAL IV PRN (02:29)
[2020-08-06] MEDS: 0.9 % SODIUM CHLORIDE 10 ML SYRINGE IV SCH ×4 (03:00→21:51)
[2020-08-06 06:31] LABS: Basophils # (Auto) 0.04 K/mcL (0.00-0.20); Basophils % (Auto) 0.2 % (0.0-2.0); Eosinophils # (Auto) 0.25 K/mcL (0.00-0.70); Eosinophils % (Auto) 1.5 % (0.0-7.0); Hematocrit 26.5 % (41.0-55.0); Hemoglobin 9.1 g/dL (13.5-16.5); Lymphocytes # (Auto) 2.34 K/mcL (1.50-4.80); Lymphocytes % (Auto) 14.5 % (15.0-49.0); Mean Cell Volume 83.3 fL (80.0-100.0); Mean Corpuscular HGB Conc 34.3 g/dL (31.0-36.0); Mean Platelet Volume 12.2 fL (7.4-10.4); Monocytes # (Auto) 1.36 K/mcL (0.10-0.90); Monocytes % (Auto) 8.4 % (1.0-12.0); Neutrophils % (Auto) 75.4 % (38.0-78.0); Platelet Count 144 K/mcL (140-440); RBC 3.18 M/mcL (4.50-5.90); Red Cell Distribution Width 13.9 % (11.5-14.5); WBC 16.2 K/mcL (4.5-11.0)
[2020-08-06 06:59] LABS: ALT/SGPT 56 U/L (<40); AST/SGOT 53 U/L (<40); Albumin 2.1 gm/dL (3.2-5.2); Albumin/Globulin Ratio 0.7 (1.0-2.3); Alkaline Phosphatase 99 U/L (39-117); Bilirubin,Direct 0.4 mg/dL (<0.3); Bilirubin,Total 0.7 mg/dL (0.1-1.0); Blood Urea Nitrogen 21 mg/dL (6-20); Calcium 7.3 mg/dL (8.6-10.4); Carbon Dioxide 19 mmol/L (22-30); Chloride 94 mmol/L (96-108); Globulin 3.1 gm/dL (2.2-3.7); Glomerular Filtration Rate 115; Glucose 86 mg/dL (70-105); Lactate Dehydrogenase 170 U/L (135-225); Phosphorous 2.2 mg/dL (2.5-4.5); Triglycerides 216 mg/dL (<150); Uric Acid 3.6 mg/dL (2.5-8.0)
[2020-08-06] MEDS ORDERED: HYDROCHLOROTHIAZIDE 12.5 MG CAPSULE PO ONE (07:12)
--- NOTE | 2020-08-06 07:12 | Internal Med Progress Note ---
SUBJECTIVE Subjective Patient information: Note initiated : 08/06/20 at 7:10 am Service Date, if different from initiated Date: [] Patient: Cash Dumont 30 y/o M admitted on 08/05/20 for IV drug use infection. Chief Complaint: [] Interval history: History of present illness: Mr. Dumont is a 30 year old M Presents the ED with body aches diarrhea headaches and fever with the left arm that is red painful and swollen. Last used IV heroin about 4-5 days ago and felt he missed the vein. Also reports opiate withdrawal symptoms including diar lisa and abdominal achiness and urinary continence. Has had lightheadedness and dizziness. Reports hallucinations. He does use marijuana as well and occasionally uses methamphetamine. 08/06 No overnight event or new complaints. Electrolytes improving. Did get methadone for withdrawal at night. Review of Systems: denies headache/fever/chills/nausea/vomiting/chest or abdominal pain/cough/dyspn ea/diarrhea. Otherwise see above. Constitutional Vitals: Vital Signs Temp Pulse Resp BP Pulse Ox 99.3 F H 73 16 93/55 97 08/06/20 00:01 08/06/20 06:00 08/06/20 06:00 08/06/20 06:00 08/06/20 06:00 Period Temp Pulse Resp BP Sys/Soliz Pulse Ox Last 24 Hr 97.4 F-99.3 F 73-81 14-23 87-114/55-79 91-100 Intake and Output 08/05/20 08/06/20 08/06/20 21:59 05:59 13:59 Intake Total 425 1550 Balance 425 1550 Weight 67.857 kg Intake & Output: Intake & Output 08/05/20 08/06/20 08/06/20 21:59 05:59 13:59 Intake Total 425 1550 Balance 425 1550 Weight 67.857 kg Intake: IV 425 750 Dextrose 5% in Water 500 ml @ 425 500 175 mls/hr IV .[id number] [facility] Rx#: [id number] Vancomycin 1,000 mg In Sodium 250 Chloride 0.9% 250 ml @ 250 mls/ hr IV Q12H [facility] Rx#:[id number] Oral 800 Other: Meal Tuna cup/Egg Salad cup/Bread x 2 Percent of Meal Consumed 100% Feeding Ability Independent Stool Size Small Stool Color Brown Stool Consistency Liquid # Voids 1 1 Exam: General: Alert, Awake, No acute Distress Eyes/N/T: EOMI, Head/Neck: neck supple, CV: RRR, No murmurs, Pulm: Clear b/l, no wheezing/rhonchi/rales Abd: soft, nontender, +BS x4 Ext: no clubbing/cyanosis/edema LE's, LUE from elbow to wrist is erythematous(some improvement)/edematous/tender to touch/indurated. Neuro: Alert, no focal deficits, moves all extremities, Skin: warm/dry OBJ DATA Labs CBC & Chem 7: 08/06/20 04:54 08/06/20 04:54 Labs: Abnormal Lab Results 08/06/20 08/06/20 08/05/20 04:54 04:54 18:37 WBC 16.2 H RBC 3.18 L Hgb 9.1 L Hct 26.5 L POC Hct 31 L MCV MCHC Plt Count MPV 12.2 H Neut % (Auto) Lymph % (Auto) 14.5 L Posey # (Auto) 1.36 H Seg Neutrophils % Lymphocytes % Absolute Neutrophils 12.16 H Toxic Granulation Platelet Estimate RBC Morphology Microcytosis ESR POC Sodium 126 L Sodium 126 L POC Potassium Potassium POC Chloride Chloride 94 L Carbon Dioxide 19 L POC Total CO2 18 L Anion Gap POC BUN 25 H BUN 21 H Creatinine POC Creatinine Glucose POC Glucose 122 H Osmolality Calcium 7.3 L POC WB Ioniz Calcium 1.05 L Phosphorus 2.2 L Magnesium Total Bilirubin Direct Bilirubin 0.4 H AST 53 H ALT 56 H Alkaline Phosphatase C-Reactive Protein Total Protein 5.2 L Albumin 2.1 L Albumin/Globulin Ratio 0.7 L Triglycerides 216 H Procalcitonin Urine Appearance Urine Protein Urine Urobilinogen Urine WBC Uric Acid Crystals Amorphous Crystals Urine Mucus Urine Opiates Screen Ur Amphetamines Screen Hepatitis C Antibody 08/05/20 08/05/20 08/05/20 15:43 12:02 07:54 WBC RBC Hgb Hct POC Hct 32 L 30 L MCV MCHC Plt Count MPV Neut % (Auto) Lymph % (Auto) Posey # (Auto) Seg Neutrophils % Lymphocytes % Absolute Neutrophils Toxic Granulation Platelet Estimate RBC Morphology Microcytosis ESR POC Sodium 127 L 125 L Sodium 124 L POC Potassium 2.7 L* Potassium POC Chloride Chloride 93 L Carbon Dioxide 19 L POC Total CO2 19 L 17 L Anion Gap POC BUN 27 H 29 H BUN 30 H Creatinine POC Creatinine 1.3 H Glucose POC Glucose 117 H Osmolality Calcium 7.4 L POC WB Ioniz Calcium 1.06 L 1.01 L Phosphorus Magnesium Total Bilirubin Direct Bilirubin AST ALT Alkaline Phosphatase C-Reactive Protein Total Protein Albumin Albumin/Globulin Ratio Triglycerides Procalcitonin Urine Appearance Urine Protein Urine Urobilinogen Urine WBC Uric Acid Crystals Amorphous Crystals Urine Mucus Urine Opiates Screen Ur Amphetamines Screen Hepatitis C Antibody See comment A 08/05/20 08/05/20 08/05/20 07:19 04:35 04:35 WBC RBC Hgb Hct POC Hct 30 L MCV MCHC Plt Count MPV Neut % (Auto) Lymph % (Auto) Posey # (Auto) Seg Neutrophils % Lymphocytes % Absolute Neutrophils Toxic Granulation Platelet Estimate RBC Morphology Microcytosis ESR 43 H POC Sodium 120 L Sodium POC Potassium 3.2 L Potassium POC Chloride 95 L Chloride Carbon Dioxide POC Total CO2 17 L Anion Gap POC BUN 33 H BUN Creatinine POC Creatinine 1.3 H Glucose POC Glucose 118 H Osmolality Calcium POC WB Ioniz Calcium 0.80 L Phosphorus Magnesium Total Bilirubin Direct Bilirubin AST ALT Alkaline Phosphatase C-Reactive Protein Total Protein Albumin Albumin/Globulin Ratio Triglycerides Procalcitonin 13.07 H Urine Appearance Urine Protein Urine Urobilinogen Urine WBC Uric Acid Crystals Amorphous Crystals Urine Mucus Urine Opiates Screen Ur Amphetamines Screen Hepatitis C Antibody 08/05/20 08/05/20 08/05/20 04:35 04:35 01:43 WBC 16.3 H RBC 3.43 L Hgb 9.7 L Hct 27.4 L POC Hct MCV 79.9 L MCHC Plt Count 109 L MPV 12.1 H Neut % (Auto) 80.8 H Lymph % (Auto) 9.7 L Posey # (Auto) 1.36 H Seg Neutrophils % Lymphocytes % Absolute Neutrophils 13.15 H Toxic Granulation Platelet Estimate RBC Morphology Microcytosis ESR POC Sodium Sodium 118 L* POC Potassium Potassium 2.9 L* POC Chloride Chloride 89 L Carbon Dioxide 19 L POC Total CO2 Anion Gap POC BUN BUN 39 H Creatinine 1.7 H POC Creatinine Glucose 122 H POC Glucose Osmolality Calcium 6.6 L POC WB Ioniz Calcium Phosphorus 2.0 L Magnesium 2.6 H Total Bilirubin 1.3 H Direct Bilirubin 1.1 H AST 123 H ALT 71 H Alkaline Phosphatase C-Reactive Protein Total Protein 5.1 L Albumin 2.1 L Albumin/Globulin Ratio 0.7 L Triglycerides 270 H Procalcitonin Urine Appearance Hazy A Urine Protein 100 A Urine Urobilinogen 2.0 A Urine WBC 8 H Uric Acid Crystals Few A Amorphous Crystals Few A Urine Mucus Few A Urine Opiates Screen Ur Amphetamines Screen Hepatitis C Antibody 08/05/20 08/05/20 08/04/20 01:43 00:11 21:35 WBC RBC Hgb Hct POC Hct 28 L MCV MCHC Plt Count MPV Neut % (Auto) Lymph % (Auto) Posey # (Auto) Seg Neutrophils % Lymphocytes % Absolute Neutrophils Toxic Granulation Platelet Estimate RBC Morphology Microcytosis ESR POC Sodium 120 L Sodium POC Potassium 2.3 L* Potassium POC Chloride 89 L Chloride Carbon Dioxide POC Total CO2 18 L Anion Gap POC BUN 33 H BUN Creatinine POC Creatinine 1.6 H Glucose POC Glucose Osmolality 252 L Calcium POC WB Ioniz Calcium 0.89 L Phosphorus Magnesium Total Bilirubin Direct Bilirubin AST ALT Alkaline Phosphatase C-Reactive Protein Total Protein Albumin Albumin/Globulin Ratio Triglycerides Procalcitonin Urine Appearance Urine Protein Urine Urobilinogen Urine WBC Uric Acid Crystals Amorphous Crystals Urine Mucus Urine Opiates Screen Suspect positive A Ur Amphetamines Screen Suspect positive A Hepatitis C Antibody 08/04/20 08/04/20 08/04/20 21:35 21:35 21:35 WBC 19.7 H RBC 3.92 L Hgb 11.1 L Hct 30.5 L POC Hct MCV 77.8 L MCHC 36.4 H Plt Count 122 L MPV 11.7 H Neut % (Auto) Lymph % (Auto) Posey # (Auto) Seg Neutrophils % 82 H Lymphocytes % 6 L Absolute Neutrophils Toxic Granulation 1+ A Platelet Estimate Decreased A RBC Morphology Abnormal A Microcytosis 1+ A ESR POC Sodium Sodium 114 L* POC Potassium Potassium 2.7 L* POC Chloride Chloride 76 L Carbon Dioxide 20 L POC Total CO2 Anion Gap 18.0 H POC BUN BUN 39 H Creatinine 1.4 H POC Creatinine Glucose POC Glucose Osmolality Calcium 7.2 L POC WB Ioniz Calcium Phosphorus Magnesium Total Bilirubin 1.9 H Direct Bilirubin AST 190 H ALT 85 H Alkaline Phosphatase 140 H C-Reactive Protein 14.20 H Total Protein Albumin 2.9 L Albumin/Globulin Ratio 0.9 L Triglycerides Procalcitonin Urine Appearance Urine Protein Urine Urobilinogen Urine WBC Uric Acid Crystals Amorphous Crystals Urine Mucus Urine Opiates Screen Ur Amphetamines Screen Hepatitis C Antibody Meds: Medications Acetaminophen (Tylenol) 650 mg PO Q6HP PRN PRN Reason: PAIN/FEVER > 101 Hydrocodone Bitart/Acetaminophen (Sodus 5/325mg) 1 tab PO Q4HP PRN; Protocol PRN Reason: withdrawal symptoms Last Admin: 08/06/20 02:28 Dose: 1 tab Documented by: Albuterol/Ipratropium (Duoneb) 3 ml NEB Q4HP PRN PRN Reason: Shortness Of Breath Clonidine HCl (Catapres) 0.1 mg PO Q4HP PRN PRN Reason: opioid withdrawal Docusate Sodium (Colace) 100 mg PO BID [facility] Last Admin: 08/05/20 21:47 Dose: 100 mg Documented by: Enoxaparin Sodium (Lovenox) 70 mg SQ BID [facility] Last Admin: 08/05/20 21:48 Dose: 70 mg Documented by: Potassium Chloride 40 meq/ (Dextrose) 520 mls @ 130 mls/hr IV UD PRN PRN Reason: Potassium < 3 Magnesium Sulfate (Magnesium Sulfate) 2 gm in 50 mls @ 50 mls/hr IV UD PRN PRN Reason: Magnesium </= 1.6 Ceftriaxone Sodium 2 gm/ (Dextrose) 50 mls @ 100 mls/hr IV DAILY [facility]; Protocol Last Infusion: 08/05/20 09:55 Dose: Infused Documented by: Vancomycin HCl 1,000 mg/ (Sodium Chloride) 250 mls @ 250 mls/hr IV Q12H [facility] Last Infusion: 08/06/20 02:17 Dose: Infused Documented by: Lactulose (Cephulac) 20 gm PO DAILYP PRN PRN Reason: Constipation Loperamide HCl (Imodium) 2 mg PO DAILYP PRN PRN Reason: Diarrhea Lorazepam (Ativan) 1 mg IV Q4HP PRN PRN Reason: agitation, sweatiness, tachy Last Admin: 08/06/20 02:29 Dose: 1 mg Documented by: Methadone HCl (Dolophine) 20 mg PO DAILYP PRN PRN Reason: opioid withdrawal Last Admin: 08/05/20 18:40 Dose: 20 mg Documented by: Ondansetron HCl (Zofran) 4 mg IV Q4HP PRN PRN Reason: Nausea And Vomiting Potassium Chloride (Kdur) 40 meq PO UD PRN PRN Reason: Potssium is 3-3.5 Potassium Chloride (Kdur) 40 meq PO UD PRN PRN Reason: Potassium < 3 Promethazine HCl (Phenergan) 25 mg IV Q4-6HP PRN PRN Reason: Nausea And Vomiting Senna (Senokot) 2 tab PO DAILYP PRN PRN Reason: Constipation Sodium Chloride (Saline Flush) 10 ml IV Q8 [facility] Last Admin: 08/06/20 03:00 Dose: 10 ml Documented by: Vancomycin HCl (Vancomycin Per Pharmacy) 1 order IV UD [facility]; Protocol A/P Narrative A/P Narrative: A: *LUE cellulits: *Bacteremia(GPC): -echo *sepsis: lactate wnl -febrile, leukocytosis improving on f/u *LUE superficial VT w/thrombophlebitis & DVT (axillary): *Hyponatremia, hypo-osmol: 2/2 to free water loss (diarrhea/volume depletion) *Hypokalemia/hypocalcemia: resolved *EMELINA: 2/2 above -improved *volume depletion: improved *Substance abuse with heroin/methamphetamines/marijuana use: -UDS with opioids and Meth *Transaminitis: 2/2 likley substance abuse (meth), Improved -liver u/s unremarkable *Tobacco abuse: *Urinary retention: prn straight cath P: -Vanc/Rocephin, pending f/u BC -f/u monitor sodium -lovenox bid -prn methatonde/clonidine/impodium/promethazine for w/d symptoms -u/s to eval for abscess antecubital space -hepatits panel, echo pending -prn straight cath -f/u with Dr. Thakur outpt -Smoking cessation counseling -ppx: lovenox bid Time Spent With Patient Time: Total time spent is greater than 50% in coordination of care (as documented) at patient's floor/unit and/or counseling patient: QUALITY VTE Deep Vein Thrombosis/Pulmonary Embolism Present on Admission: Yes
[2020-08-06] MEDS ORDERED: DEXTROSE 5% IN WATER 250 ML IV SCH ×2 (07:15→10:21)
[2020-08-06] MEDS: ENOXAPARIN 80 MG/0.8 ML SYRINGE SQ SCH ×2 (09:09→21:04)
[2020-08-06] MEDS: DOCUSATE SODIUM 100 MG CAPSULE PO SCH ×3 (09:09→21:04)
[2020-08-06] MEDS: cefTRIAXone 2 GM in DEXTROSE 5% IN WATER 50 ML IV SCH (09:10)
[2020-08-06] MEDS ORDERED: IOPAMIDOL 100 ML BOTTLE IV ONE (10:21)
[2020-08-06] MEDS ORDERED: LORazepam 2 MG/ML VIAL IV PRN (10:21)
[2020-08-06] MEDS ORDERED: POTASSIUM CHLORIDE 40 MEQ in DEXTROSE 5% IN WATER 500 ML IV PRN (10:21)
[2020-08-06] MEDS ORDERED: LOPERAMIDE 2 MG CAPSULE PO PRN (10:21)
[2020-08-06] MEDS ORDERED: SENNOSIDES 1 TABLET PO PRN (10:21)
[2020-08-06] MEDS ORDERED: POTASSIUM CHLORIDE 20 MEQ TABLET PO PRN ×2 (10:21)
[2020-08-06] MEDS ORDERED: METHADONE 5 MG TABLET PO PRN (10:21)
[2020-08-06] MEDS ORDERED: MAGNESIUM SULFATE 2 GM/50 ML BAG IV PRN (10:21)
[2020-08-06] MEDS ORDERED: cloNIDine HCL 0.1 MG TABLET PO PRN (10:21)
[2020-08-06] MEDS ORDERED: LACTULOSE 20 GM/30 ML ORAL.SOL PO PRN (10:21)
[2020-08-06] MEDS ORDERED: PROMETHAZINE 25 MG/ML VIAL IV PRN (10:21)
[2020-08-06] MEDS ORDERED: HYDROcodone/APAP 5/325MG TABLET PO PRN (10:21)
[2020-08-06] MEDS ORDERED: ONDANSETRON 4 MG/2 ML VIAL IV PRN (10:21)
[2020-08-06] MEDS ORDERED: ACETAMINOPHEN 325 MG TABLET PO PRN (10:21)
[2020-08-06] MEDS ORDERED: VANCOMYCIN PER PHARMACY IV SCH (10:21)
[2020-08-06] MEDS ORDERED: IPRATROPIUM/ALBUTEROL 3 ML AMPUL.NEB NEB PRN (10:21)
[2020-08-06 10:27] LABS: POC Blood Urea Nitrogen 20 mg/dL (6-20); POC CO2 19 mmol/L (22-30); POC Chloride 98 mEq/L (96-108); POC Creatinine 0.9 mg/dL (0.6-1.2); POC Glucose, Random 104 mg/dL (70-105); POC Hematocrit 30 % (41-55); POC Potassium 3.6 mEql/L (3.3-5.1); POC Sodium 127 mEq/L (133-145)
--- NOTE | 2020-08-06 10:54 | Ultrasound Report ---
History: IV drug user with infection left forearm FINDINGS: Beneath the skin in the upper portion of the left forearm, distal to the antecubital fossa there is an irregular hypoechoic heterogeneous fluid collection. It measures 1.4 x 2.4 x 2.6 cm. Doppler shows increased flow along the periphery. On the prior ultrasound done on 08/04/20 cellulitis was seen in this region but there was no fluid collection at that time. Again noted is occlusion of the superficial veins in the left arm due to thrombophlebitis. IMPRESSION: Small subcutaneous abscess in the left forearm distal to the antecubital fossa Interpreted and Authenticated by: Speedy Hayes 08/06/20
[2020-08-06] MEDS: VANCOMYCIN 1,000 MG in 0.9 % SODIUM CHLORIDE 250 ML IV SCH ×3 (10:57→21:45)
[2020-08-06] MEDS ORDERED: DESMOPRESSIN ACETATE 4 MCG/ML AMPUL IV ONE (11:00)
[2020-08-06 14:16] LABS: POC Blood Urea Nitrogen 18 mg/dL (6-20); POC CO2 20 mmol/L (22-30); POC Calcium, Ionized 0.99 mmEq/L (1.16-1.32); POC Chloride 97 mEq/L (96-108); POC Creatinine 0.9 mg/dL (0.6-1.2); POC Glucose, Random 82 mg/dL (70-105); POC Hematocrit 27 % (41-55); POC Potassium 3.4 mEql/L (3.3-5.1); POC Sodium 126 mEq/L (133-145)
[2020-08-06 15:31] LABS: Blood Urea Nitrogen 20 mg/dL (6-20); Calcium 7.5 mg/dL (8.6-10.4); Carbon Dioxide 18 mmol/L (22-30); Chloride 99 mmol/L (96-108); Glomerular Filtration Rate 115; Glucose 84 mg/dL (70-105)
[2020-08-06] MEDS ORDERED: DEXTROSE 5% IN WATER 150 ML IV SCH (15:45)
--- NOTE | 2020-08-06 17:24 | General Surgery Consult Note ---
HPI Data of Consult Patient: new to practice Consult date: 08/06/20 Primary Care Provider: PCP No Consult Narrative Patient Information: Note initiated : 08/06/20 at 5:14 pm Service Date, if different from initiated Date: [] Patient: Cash Dumont 30 y/o M admitted on 08/05/20 for IV drug use infection. Chief Complaint: [] Chief complaint: abscess left antecubital space with cellulitis cc:: 30-year-old male admitted with streptococcal bacteremia due to group A strep. Patient has a history of IV drug use and states that he injected heroin in his left antecubital space. About 5 days ago and has noted increase in swelling and pain in his entire left arm. He presents with fever, leukocytosis and a massively swollen all with involvement of the flexor tendons in the antecubital space. He has palpable abscess in the area. He and his mother are counseled drainage of the abscess and debridement of the fascia muscle under anesthesia.. Constitutional Constitutional: Present anorexia, chills, fatigue, fever(s), lethargy, malaise, night sweats, weakness and weight loss Gastrointestinal Gastrointestinal: Present abdominal pain Musculoskeletal Musculoskeletal: Present myalgias, radiating pain into limb and stiffness PFSH PFSH All Active Problems Abscess of left forearm (Acute) Bacteremia due to Streptococcus (Acute) Deep vein thrombosis (DVT) of left upper extremity (Acute) Heroin withdrawal (Acute) Hyponatremia (Acute) Hypokalemia (Acute) Acute dehydration (Acute) Anemia (Acute) Laceration (Acute) Sepsis (Acute) Cellulitis (Acute) IVDU (intravenous drug user) (Acute) Medical History Laceration (Acute) Social History smoking status: Current every day smoker substance use type: heroin (last use 07/30/2020 reported on 08/04/2020.) MEDS/ALLERGIES Home Medications and Allergies Home Medications Medication Instructions Recorded Confirmed Type No Known Home Meds 07/11/16 08/05/20 History Allergies Allergy/AdvReac Type Severity Reaction Status Date / Time No Known Drug Allergies Allergy Verified 08/05/20 05:34 Physical Examination Vital Signs Vital signs: Temp Pulse Resp BP Pulse Ox 98.4 F 83 18 107/68 98 08/06/20 16:16 08/06/20 16:16 08/06/20 16:16 08/06/20 16:16 08/06/20 16:16 General physical appearance General physical exam: severe distress, severe pain and chronically ill Eyes Eye exam: PERRL ENT ENT exam: normal mucosa Head Head exam IM: Present atraumatic, normal inspection and normocephalic Neck Neck exam: no masses and no bruits Cardiovascular Cardiovascular exam IM: Present normal rate and rhythm, +S1 and +S2 Respiratory Respiratory exam: normal expansion, normal respiratory effort and clear to auscultation Abdomen Abdomen: Present soft, non tender and bowel sounds (normal active bowel sounds) Integumentary Integumentary: Present other (abscess left antecubital space with extensive cellulitis extending to the wrist with swelling of his forearm) Neurologic Neurologic: Present normal coordination Musculoskeletal Musculoskeletal: Present normal gait and normal posture Psychiatric Psychiatric: Present oriented to person Results Labs Result diagrams: 08/06/20 04:54 08/06/20 14:10 Labs: Abnormal lab results 08/05/20 08/06/20 08/06/20 Range/Units 18:37 04:54 04:54 WBC 16.2 H (4.5-11.0) K/mcL RBC 3.18 L (4.50-5.90) M/mcL Hgb 9.1 L (13.5-16.5) g/dL Hct 26.5 L (41.0-55.0) % POC Hct 31 L (41-55) % MPV 12.2 H (7.4-10.4) fL Lymph % (Auto) 14.5 L (15.0-49.0) % [place] # (Auto) 1.36 H (0.10-0.90) K/mcL Absolute Neutrophils 12.16 H (1.80-8.00) K/mcL POC Sodium 126 L (133-145) mEq/L Sodium 126 L (133-145) mmol/L Chloride 94 L (96-108) mmol/L Carbon Dioxide 19 L (22-30) mmol/L POC Total CO2 18 L (22-30) mmol/L POC BUN 25 H (6-20) mg/dL BUN 21 H (6-20) mg/dL POC Glucose 122 H (70-105) mg/dL Calcium 7.3 L (8.6-10.4) mg/dL POC WB Ioniz Calcium 1.05 L (1.16-1.32) mmEq/L Phosphorus 2.2 L (2.5-4.5) mg/dL Direct Bilirubin 0.4 H (<0.3) mg/dL AST 53 H (<40) U/L ALT 56 H (<40) U/L Total Protein 5.2 L (5.9-8.4) gm/dL Albumin 2.1 L (3.2-5.2) gm/dL Albumin/Globulin Ratio 0.7 L (1.0-2.3) Triglycerides 216 H (<150) mg/dL 08/06/20 08/06/20 Range/Units 10:20 14:10 WBC (4.5-11.0) K/mcL RBC (4.50-5.90) M/mcL Hgb (13.5-16.5) g/dL Hct (41.0-55.0) % POC Hct 30 L 27 L (41-55) % MPV (7.4-10.4) fL Lymph % (Auto) (15.0-49.0) % [place] # (Auto) (0.10-0.90) K/mcL Absolute Neutrophils (1.80-8.00) K/mcL POC Sodium 127 L 126 L (133-145) mEq/L Sodium 126 L (133-145) mmol/L Chloride (96-108) mmol/L Carbon Dioxide 18 L (22-30) mmol/L POC Total CO2 19 L 20 L (22-30) mmol/L POC BUN (6-20) mg/dL BUN (6-20) mg/dL POC Glucose (70-105) mg/dL Calcium 7.5 L (8.6-10.4) mg/dL POC WB Ioniz Calcium 1.00 L 0.99 L (1.16-1.32) mmEq/L Phosphorus (2.5-4.5) mg/dL Direct Bilirubin (<0.3) mg/dL AST (<40) U/L ALT (<40) U/L Total Protein (5.9-8.4) gm/dL Albumin (3.2-5.2) gm/dL Albumin/Globulin Ratio (1.0-2.3) Triglycerides (<150) mg/dL Diabetes panel 08/06/20 08/06/20 Range/Units 04:54 14:10 Sodium 126 L 126 L (133-145) mmol/L Potassium 3.6 3.7 (3.3-5.1) mmol/L Chloride 94 L 99 (96-108) mmol/L Carbon Dioxide 19 L 18 L (22-30) mmol/L BUN 21 H 20 (6-20) mg/dL Creatinine 0.9 0.9 (0.7-1.2) mg/dL Glucose 86 84 (70-105) mg/dL Calcium 7.3 L 7.5 L (8.6-10.4) mg/dL AST 53 H (<40) U/L ALT 56 H (<40) U/L Alkaline Phosphatase 99 (39-117) U/L Total Protein 5.2 L (5.9-8.4) gm/dL Albumin 2.1 L (3.2-5.2) gm/dL Triglycerides 216 H (<150) mg/dL Calcium panel 08/06/20 08/06/20 Range/Units 04:54 14:10 Calcium 7.3 L 7.5 L (8.6-10.4) mg/dL Phosphorus 2.2 L (2.5-4.5) mg/dL Albumin 2.1 L (3.2-5.2) gm/dL Pituitary panel 08/06/20 08/06/20 Range/Units 04:54 14:10 Sodium 126 L 126 L (133-145) mmol/L Potassium 3.6 3.7 (3.3-5.1) mmol/L Chloride 94 L 99 (96-108) mmol/L Carbon Dioxide 19 L 18 L (22-30) mmol/L BUN 21 H 20 (6-20) mg/dL Creatinine 0.9 0.9 (0.7-1.2) mg/dL Glucose 86 84 (70-105) mg/dL Calcium 7.3 L 7.5 L (8.6-10.4) mg/dL Adrenal panel 08/06/20 08/06/20 Range/Units 04:54 14:10 Sodium 126 L 126 L (133-145) mmol/L Potassium 3.6 3.7 (3.3-5.1) mmol/L Chloride 94 L 99 (96-108) mmol/L Carbon Dioxide 19 L 18 L (22-30) mmol/L BUN 21 H 20 (6-20) mg/dL Creatinine 0.9 0.9 (0.7-1.2) mg/dL Glucose 86 84 (70-105) mg/dL Calcium 7.3 L 7.5 L (8.6-10.4) mg/dL Total Bilirubin 0.7 (0.1-1.0) mg/dL AST 53 H (<40) U/L ALT 56 H (<40) U/L Alkaline Phosphatase 99 (39-117) U/L Total Protein 5.2 L (5.9-8.4) gm/dL Albumin 2.1 L (3.2-5.2) gm/dL All other labs normal. A/P Assessment and plan (1) Bacteremia due to Streptococcus: Status: Acute (2) Abscess of left forearm: Status: Acute (3) IVDU (intravenous drug user): Status: Acute Comment: heroin (4) Deep vein thrombosis (DVT) of left upper extremity: Status: Acute Qualifiers: Affected thrombotic vein of extremity: unspecified vein of extremity Chronicity: acute Qualified Code(s): I82.622 - Acute embolism and thrombosis of deep veins of left upper extremity (5) Heroin withdrawal: Status: Acute (6) Acute dehydration: Status: Acute Narrative A/P Narrative: patient is on adequate antibiotic therapy. He and his mother counseled for incision, drainage and debridement of the abscess of the forearm tomorrow. Time Spent With Patient Time: Total time spent is greater than 50% in coordination of care (as documented) at patient's floor/unit and/or counseling patient:
[2020-08-06 18:17] LABS: POC Blood Urea Nitrogen 17 mg/dL (6-20); POC CO2 20 mmol/L (22-30); POC Calcium, Ionized 1.07 mmEq/L (1.16-1.32); POC Chloride 93 mEq/L (96-108); POC Creatinine 0.7 mg/dL (0.6-1.2); POC Glucose, Random 131 mg/dL (70-105); POC Hematocrit 29 % (41-55); POC Potassium 3.1 mEql/L (3.3-5.1); POC Sodium 127 mEq/L (133-145)
[2020-08-06] MEDS ORDERED: CLINDAMYCIN 600 MG/4 ML VIAL ONE (20:48)
[2020-08-06] MEDS: CLINDAMYCIN 600 MG in DEXTROSE 5% IN WATER 50 ML IV SCH (21:03)
[2020-08-07] MEDS ORDERED: CLINDAMYCIN 600 MG/4 ML VIAL ONE (05:32)
[2020-08-07] MEDS: CLINDAMYCIN 600 MG in DEXTROSE 5% IN WATER 50 ML IV SCH ×3 (05:46→21:46)
[2020-08-07] MEDS: 0.9 % SODIUM CHLORIDE 10 ML SYRINGE IV SCH ×3 (05:49→21:47)
[2020-08-07 06:53] LABS: Basophils # (Auto) 0.11 K/mcL (0.00-0.20); Basophils % (Auto) 0.6 % (0.0-2.0); Eosinophils # (Auto) 0.43 K/mcL (0.00-0.70); Eosinophils % (Auto) 2.4 % (0.0-7.0); Hematocrit 27.2 % (41.0-55.0); Hemoglobin 9.4 g/dL (13.5-16.5); Lymphocytes # (Auto) 2.75 K/mcL (1.50-4.80); Lymphocytes % (Auto) 15.2 % (15.0-49.0); Mean Cell Volume 81.9 fL (80.0-100.0); Mean Corpuscular HGB Conc 34.6 g/dL (31.0-36.0); Mean Platelet Volume 10.9 fL (7.4-10.4); Monocytes % (Auto) 6.1 % (1.0-12.0); Neutrophils % (Auto) 75.7 % (38.0-78.0); Platelet Count 253 K/mcL (140-440); RBC 3.32 M/mcL (4.50-5.90); Red Cell Distribution Width 13.9 % (11.5-14.5)
[2020-08-07 07:08] LABS: ALT/SGPT 54 U/L (<40); AST/SGOT 51 U/L (<40); Albumin 2.3 gm/dL (3.2-5.2); Albumin/Globulin Ratio 0.7 (1.0-2.3); Alkaline Phosphatase 124 U/L (39-117); Bilirubin,Direct 0.5 mg/dL (<0.3); Blood Urea Nitrogen 14 mg/dL (6-20); Calcium 7.7 mg/dL (8.6-10.4); Carbon Dioxide 22 mmol/L (22-30); Chloride 94 mmol/L (96-108); Globulin 3.2 gm/dL (2.2-3.7); Glomerular Filtration Rate 120; Glucose 82 mg/dL (70-105); Lactate Dehydrogenase 167 U/L (135-225); Phosphorous 2.8 mg/dL (2.5-4.5); Triglycerides 149 mg/dL (<150); Uric Acid 2.9 mg/dL (2.5-8.0)
--- NOTE | 2020-08-07 07:37 | Internal Med Progress Note ---
SUBJECTIVE Subjective Patient information: Note initiated : 08/07/20 at 7:31 am Service Date, if different from initiated Date: [] Patient: Cash Dumont 30 y/o M admitted on 08/05/20 for IV drug use infection. Chief Complaint: [] Interval history: History of present illness: Mr. Dumont is a 30 year old M Presents the ED with body aches diarrhea headaches and fever with the left arm that is red painful and swollen. Last used IV heroin about 4-5 days ago and felt he missed the vein. Also reports opiate withdrawal symptoms including diar lisa and abdominal achiness and urinary continence. Has had lightheadedness and dizziness. Reports hallucinations. He does use marijuana as well and occasionally uses methamphetamine. 08/06 No overnight event or new complaints. Electrolytes improving. Did get methadone for withdrawal at night. 08/07 States poor sleep. Sodium appropriate. Initially sodium showed rapid increase in the throughout the ED and so we attempted reversal but essentially stalled at and has been an appropriate elevation over 48 hours. Patient will get a I&D of his arm abscess today by Dr. Ceron. Persistent leukocytosis I suspect related to the abscess that has not been drained yet. Chemistry panel improving. Review of Systems: denies /fever/chills/nausea/vomiting/chest or abdominal pain/cough/dyspnea/diarr hea. Otherwise see above. Constitutional Vitals: Vital Signs Temp Pulse Resp BP Pulse Ox 96.8 F L 78 18 93/56 97 08/07/20 04:00 08/07/20 04:00 08/07/20 04:00 08/07/20 04:00 08/07/20 04:00 Period Temp Pulse Resp BP Sys/Soliz Pulse Ox Last 24 Hr 96.8 F-99.9 F 78-97 16-20 93-128/56-71 94-99 Intake and Output 08/06/20 08/07/20 08/07/20 21:59 05:59 13:59 Intake Total 1304 Balance 1304 Weight 69.037 kg Intake & Output: Intake & Output 08/06/20 08/07/20 08/07/20 21:59 05:59 13:59 Intake Total 1304 Balance 1304 Weight 69.037 kg Intake: IV 204 Cleocin 600 mg In Dextrose 5% 54 in Water 50 ml @ 100 mls/hr IV Q8H Y[facility]ONNE Rx#:[id number] Dextrose 5% in Water 150 ml @ 150 75 mls/hr IV .Q2H YVONNE Rx#: [id number] Oral 1100 Other: Meal Dinner Percent of Meal Consumed 50% Feeding Ability Independent Urine Appearance Clear Urine Color Pale Urine Odor Normal # Voids 3 1 Exam: General: Alert, Awake, No acute Distress Eyes/N/T: EOMI, Head/Neck: neck supple, CV: RRR, No murmurs, Pulm: Clear b/l, no wheezing/rhonchi/rales Abd: soft, nontender, +BS x4 Ext: no clubbing/cyanosis/edema LE's, LUE from elbow to wrist is erythematous/edematous/tender to touch/indurated - all slowly improving Neuro: Alert, no focal deficits, moves all extremities, Skin: warm/dry OBJ DATA Labs CBC & Chem 7: 08/07/20 05:28 08/07/20 05:28 Labs: Abnormal Lab Results 08/07/20 08/07/20 08/06/20 05:28 05:28 18:08 WBC 18.0 H RBC 3.32 L Hgb 9.4 L Hct 27.2 L POC Hct 29 L MCV MCHC Plt Count MPV 10.9 H Neut % (Auto) Lymph % (Auto) [place] # (Auto) 1.10 H Seg Neutrophils % Lymphocytes % Absolute Neutrophils 13.65 H Toxic Granulation Platelet Estimate RBC Morphology Microcytosis ESR POC Sodium 127 L Sodium 127 L POC Potassium 3.1 L Potassium POC Chloride 93 L Chloride 94 L Carbon Dioxide POC Total CO2 20 L Anion Gap POC BUN BUN Creatinine POC Creatinine Glucose POC Glucose 131 H Osmolality Calcium 7.7 L POC WB Ioniz Calcium 1.07 L Phosphorus Magnesium Total Bilirubin Direct Bilirubin 0.5 H AST 51 H ALT 54 H Alkaline Phosphatase 124 H C-Reactive Protein Total Protein 5.5 L Albumin 2.3 L Albumin/Globulin Ratio 0.7 L Triglycerides Procalcitonin Urine Appearance Urine Protein Urine Urobilinogen Urine WBC Uric Acid Crystals Amorphous Crystals Urine Mucus Urine Opiates Screen Ur Amphetamines Screen Hepatitis C Antibody 08/06/20 08/06/20 08/06/20 14:10 10:20 04:54 WBC RBC Hgb Hct POC Hct 27 L 30 L MCV MCHC Plt Count MPV Neut % (Auto) Lymph % (Auto) [place] # (Auto) Seg Neutrophils % Lymphocytes % Absolute Neutrophils Toxic Granulation Platelet Estimate RBC Morphology Microcytosis ESR POC Sodium 126 L 127 L Sodium 126 L 126 L POC Potassium Potassium POC Chloride Chloride 94 L Carbon Dioxide 18 L 19 L POC Total CO2 20 L 19 L Anion Gap POC BUN BUN 21 H Creatinine POC Creatinine Glucose POC Glucose Osmolality Calcium 7.5 L 7.3 L POC WB Ioniz Calcium 0.99 L 1.00 L Phosphorus 2.2 L Magnesium Total Bilirubin Direct Bilirubin 0.4 H AST 53 H ALT 56 H Alkaline Phosphatase C-Reactive Protein Total Protein 5.2 L Albumin 2.1 L Albumin/Globulin Ratio 0.7 L Triglycerides 216 H Procalcitonin Urine Appearance Urine Protein Urine Urobilinogen Urine WBC Uric Acid Crystals Amorphous Crystals Urine Mucus Urine Opiates Screen Ur Amphetamines Screen Hepatitis C Antibody 08/06/20 08/05/20 08/05/20 04:54 18:37 15:43 WBC 16.2 H RBC 3.18 L Hgb 9.1 L Hct 26.5 L POC Hct 31 L 32 L MCV MCHC Plt Count MPV 12.2 H Neut % (Auto) Lymph % (Auto) 14.5 L [place] # (Auto) 1.36 H Seg Neutrophils % Lymphocytes % Absolute Neutrophils 12.16 H Toxic Granulation Platelet Estimate RBC Morphology Microcytosis ESR POC Sodium 126 L 127 L Sodium 124 L POC Potassium Potassium POC Chloride Chloride 93 L Carbon Dioxide 19 L POC Total CO2 18 L 19 L Anion Gap POC BUN 25 H 27 H BUN 30 H Creatinine POC Creatinine Glucose POC Glucose 122 H Osmolality Calcium 7.4 L POC WB Ioniz Calcium 1.05 L 1.06 L Phosphorus Magnesium Total Bilirubin Direct Bilirubin AST ALT Alkaline Phosphatase C-Reactive Protein Total Protein Albumin Albumin/Globulin Ratio Triglycerides Procalcitonin Urine Appearance Urine Protein Urine Urobilinogen Urine WBC Uric Acid Crystals Amorphous Crystals Urine Mucus Urine Opiates Screen Ur Amphetamines Screen Hepatitis C Antibody 08/05/20 08/05/20 08/05/20 12:02 07:54 07:19 WBC RBC Hgb Hct POC Hct 30 L 30 L MCV MCHC Plt Count MPV Neut % (Auto) Lymph % (Auto) [place] # (Auto) Seg Neutrophils % Lymphocytes % Absolute Neutrophils Toxic Granulation Platelet Estimate RBC Morphology Microcytosis ESR POC Sodium 125 L 120 L Sodium POC Potassium 2.7 L* 3.2 L Potassium POC Chloride 95 L Chloride Carbon Dioxide POC Total CO2 17 L 17 L Anion Gap POC BUN 29 H 33 H BUN Creatinine POC Creatinine 1.3 H 1.3 H Glucose POC Glucose 117 H 118 H Osmolality Calcium POC WB Ioniz Calcium 1.01 L 0.80 L Phosphorus Magnesium Total Bilirubin Direct Bilirubin AST ALT Alkaline Phosphatase C-Reactive Protein Total Protein Albumin Albumin/Globulin Ratio Triglycerides Procalcitonin Urine Appearance Urine Protein Urine Urobilinogen Urine WBC Uric Acid Crystals Amorphous Crystals Urine Mucus Urine Opiates Screen Ur Amphetamines Screen Hepatitis C Antibody See comment A 08/05/20 08/05/20 08/05/20 04:35 04:35 04:35 WBC RBC Hgb Hct POC Hct MCV MCHC Plt Count MPV Neut % (Auto) Lymph % (Auto) [place] # (Auto) Seg Neutrophils % Lymphocytes % Absolute Neutrophils Toxic Granulation Platelet Estimate RBC Morphology Microcytosis ESR 43 H POC Sodium Sodium 118 L* POC Potassium Potassium 2.9 L* POC Chloride Chloride 89 L Carbon Dioxide 19 L POC Total CO2 Anion Gap POC BUN BUN 39 H Creatinine 1.7 H POC Creatinine Glucose 122 H POC Glucose Osmolality Calcium 6.6 L POC WB Ioniz Calcium Phosphorus 2.0 L Magnesium 2.6 H Total Bilirubin 1.3 H Direct Bilirubin 1.1 H AST 123 H ALT 71 H Alkaline Phosphatase C-Reactive Protein Total Protein 5.1 L Albumin 2.1 L Albumin/Globulin Ratio 0.7 L Triglycerides 270 H Procalcitonin 13.07 H Urine Appearance Urine Protein Urine Urobilinogen Urine WBC Uric Acid Crystals Amorphous Crystals Urine Mucus Urine Opiates Screen Ur Amphetamines Screen Hepatitis C Antibody 08/05/20 08/05/20 08/05/20 04:35 01:43 01:43 WBC 16.3 H RBC 3.43 L Hgb 9.7 L Hct 27.4 L POC Hct MCV 79.9 L MCHC Plt Count 109 L MPV 12.1 H Neut % (Auto) 80.8 H Lymph % (Auto) 9.7 L [place] # (Auto) 1.36 H Seg Neutrophils % Lymphocytes % Absolute Neutrophils 13.15 H Toxic Granulation Platelet Estimate RBC Morphology Microcytosis ESR POC Sodium Sodium POC Potassium Potassium POC Chloride Chloride Carbon Dioxide POC Total CO2 Anion Gap POC BUN BUN Creatinine POC Creatinine Glucose POC Glucose Osmolality Calcium POC WB Ioniz Calcium Phosphorus Magnesium Total Bilirubin Direct Bilirubin AST ALT Alkaline Phosphatase C-Reactive Protein Total Protein Albumin Albumin/Globulin Ratio Triglycerides Procalcitonin Urine Appearance Hazy A Urine Protein 100 A Urine Urobilinogen 2.0 A Urine WBC 8 H Uric Acid Crystals Few A Amorphous Crystals Few A Urine Mucus Few A Urine Opiates Screen Suspect positive A Ur Amphetamines Screen Suspect positive A Hepatitis C Antibody 08/05/20 08/04/20 08/04/20 00:11 21:35 21:35 WBC RBC Hgb Hct POC Hct 28 L MCV MCHC Plt Count MPV Neut % (Auto) Lymph % (Auto) [place] # (Auto) Seg Neutrophils % Lymphocytes % Absolute Neutrophils Toxic Granulation Platelet Estimate RBC Morphology Microcytosis ESR POC Sodium 120 L Sodium POC Potassium 2.3 L* Potassium POC Chloride 89 L Chloride Carbon Dioxide POC Total CO2 18 L Anion Gap POC BUN 33 H BUN Creatinine POC Creatinine 1.6 H Glucose POC Glucose Osmolality 252 L Calcium POC WB Ioniz Calcium 0.89 L Phosphorus Magnesium Total Bilirubin Direct Bilirubin AST ALT Alkaline Phosphatase C-Reactive Protein 14.20 H Total Protein Albumin Albumin/Globulin Ratio Triglycerides Procalcitonin Urine Appearance Urine Protein Urine Urobilinogen Urine WBC Uric Acid Crystals Amorphous Crystals Urine Mucus Urine Opiates Screen Ur Amphetamines Screen Hepatitis C Antibody 08/04/20 08/04/20 21:35 21:35 WBC 19.7 H RBC 3.92 L Hgb 11.1 L Hct 30.5 L POC Hct MCV 77.8 L MCHC 36.4 H Plt Count 122 L MPV 11.7 H Neut % (Auto) Lymph % (Auto) [place] # (Auto) Seg Neutrophils % 82 H Lymphocytes % 6 L Absolute Neutrophils Toxic Granulation 1+ A Platelet Estimate Decreased A RBC Morphology Abnormal A Microcytosis 1+ A ESR POC Sodium Sodium 114 L* POC Potassium Potassium 2.7 L* POC Chloride Chloride 76 L Carbon Dioxide 20 L POC Total CO2 Anion Gap 18.0 H POC BUN BUN 39 H Creatinine 1.4 H POC Creatinine Glucose POC Glucose Osmolality Calcium 7.2 L POC WB Ioniz Calcium Phosphorus Magnesium Total Bilirubin 1.9 H Direct Bilirubin AST 190 H ALT 85 H Alkaline Phosphatase 140 H C-Reactive Protein Total Protein Albumin 2.9 L Albumin/Globulin Ratio 0.9 L Triglycerides Procalcitonin Urine Appearance Urine Protein Urine Urobilinogen Urine WBC Uric Acid Crystals Amorphous Crystals Urine Mucus Urine Opiates Screen Ur Amphetamines Screen Hepatitis C Antibody Meds: Medications Acetaminophen (Tylenol) 650 mg PO Q6HP PRN PRN Reason: PAIN/FEVER > 101 Last Admin: 08/06/20 22:16 Dose: 650 mg Documented by: Hydrocodone Bitart/Acetaminophen ([place] 5/325mg) 1 tab PO Q4HP PRN; Protocol PRN Reason: withdrawal symptoms Albuterol/Ipratropium (Duoneb) 3 ml NEB Q4HP PRN PRN Reason: Shortness Of Breath Clonidine HCl (Catapres) 0.1 mg PO Q4HP PRN PRN Reason: opioid withdrawal Docusate Sodium (Colace) 100 mg PO BID [facility] Last Admin: 08/06/20 21:04 Dose: 100 mg Documented by: Enoxaparin Sodium (Lovenox) 70 mg SQ BID [facility] Last Admin: 08/06/20 21:04 Dose: 70 mg Documented by: Ceftriaxone Sodium 2 gm/ (Dextrose) 50 mls @ 100 mls/hr IV DAILY [facility]; Protocol Magnesium Sulfate (Magnesium Sulfate) 2 gm in 50 mls @ 50 mls/hr IV UD PRN PRN Reason: Magnesium </= 1.6 Vancomycin HCl 1,000 mg/ (Sodium Chloride) 250 mls @ 250 mls/hr IV Q12H [facility] Last Admin: 08/06/20 21:45 Dose: 250 mls/hr Documented by: Potassium Chloride 40 meq/ (Dextrose) 520 mls @ 130 mls/hr IV UD PRN PRN Reason: Potassium < 3 Clindamycin Phosphate 600 mg/ (Dextrose) 54 mls @ 100 mls/hr IV Q8H [facility]; Protocol Stop: 08/07/20 14:33 Last Admin: 08/07/20 05:46 Dose: 100 mls/hr Documented by: Lactulose (Cephulac) 20 gm PO DAILYP PRN PRN Reason: Constipation Loperamide HCl (Imodium) 2 mg PO DAILYP PRN PRN Reason: Diarrhea Lorazepam (Ativan) 1 mg IV Q4HP PRN PRN Reason: agitation, sweatiness, tachy Methadone HCl (Dolophine) 20 mg PO DAILYP PRN PRN Reason: opioid withdrawal Ondansetron HCl (Zofran) 4 mg IV Q4HP PRN PRN Reason: Nausea And Vomiting Potassium Chloride (Kdur) 40 meq PO UD PRN PRN Reason: Potssium is 3-3.5 Last Admin: 08/06/20 18:40 Dose: 40 meq Documented by: Potassium Chloride (Kdur) 40 meq PO UD PRN PRN Reason: Potassium < 3 Promethazine HCl (Phenergan) 25 mg IV Q4-6HP PRN PRN Reason: Nausea And Vomiting Scopolamine (Transderm-Scop) 1 patch TOPICAL PREOP PRN PRN Reason: Nausea And Vomiting Stop: 08/07/20 16:30 Senna (Senokot) 2 tab PO DAILYP PRN PRN Reason: Constipation Sodium Chloride (Saline Flush) 10 ml IV Q8 [facility] Last Admin: 08/07/20 05:49 Dose: 10 ml Documented by: Vancomycin HCl (Vancomycin Per Pharmacy) 1 order IV UD [facility]; Protocol A/P Narrative A/P Narrative: A: *LUE cellulits: *Bacteremia(Strep pyogenes): 2/2 above *sepsis: lactate wnl. improved -afebrile now, persistent leukocytosis suspect 2/2 abcess *LUE superficial VT w/thrombophlebitis & DVT (axillary): *Hyponatremia, hypo-osmol: 2/2 to free water loss (diarrhea/volume depletion) *Hypokalemia/hypocalcemia: resolved *EMELINA: 2/2 above -improved *volume depletion: improved *Substance abuse with heroin/methamphetamines/marijuana use: -UDS with opioids and Meth *Transaminitis: 2/2 likley substance abuse (meth), Improved -liver u/s unremarkable *Tobacco abuse: *Urinary retention: prn straight cath P: -Vanc/Rocephin/clinda, pending BC -f/u monitor sodium -lovenox bid -prn methadone/clonidine/imodium/promethazine for w/d symptoms -hepatits panel -prn straight cath -I&D today of arm abscess -f/u with Dr. Thakur outpt -Smoking cessation counseling -ppx: lovenox bid Time Spent With Patient Time: Total time spent is greater than 50% in coordination of care (as documented) at patient's floor/unit and/or counseling patient: QUALITY VTE Deep Vein Thrombosis/Pulmonary Embolism Present on Admission: Yes
[2020-08-07] MEDS ORDERED: SCOPOLAMINE 1 PATCH PATCH TOPICAL PRN ×2 (08:30→10:39)
[2020-08-07] MEDS: DOCUSATE SODIUM 100 MG CAPSULE PO SCH ×3 (08:37→21:48)
[2020-08-07] MEDS ORDERED: LACTOBACILLUS 1 CAPSULE PO SCH (09:00)
[2020-08-07] MEDS ORDERED: cefTRIAXone 2 GM in DEXTROSE 5% IN WATER 50 ML IV SCH (09:00)
--- NOTE | 2020-08-07 09:07 | Brief Operative Note ---
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
[2020-08-07] MEDS ORDERED: PHENYLEPHRINE 10 MG/ML VIAL ONE (09:15)
[2020-08-07] MEDS ORDERED: KETAMINE 100 MG/ML ML ONE (09:15)
[2020-08-07] MEDS ORDERED: ONDANSETRON 4 MG/2 ML VIAL ONE (09:15)
[2020-08-07] MEDS ORDERED: MIDAZOLAM 5 MG/5 ML VIAL ONE (09:15)
[2020-08-07] MEDS ORDERED: KETOROLAC 30 MG/ML VIAL ONE (09:15)
[2020-08-07] MEDS ORDERED: fentaNYL 100 MCG/2 ML VIAL IV ONE (09:15)
[2020-08-07] MEDS ORDERED: LIDOCAINE HCL/PF 100 MG/5 ML SYRINGE IV ONE (09:15)
[2020-08-07] MEDS ORDERED: PROPOFOL 200 MG/20 ML VIAL IV ONE (09:15)
[2020-08-07] MEDS ORDERED: GLYCOPYRROLATE 0.2 MG/ML VIAL IV ONE (09:15)
[2020-08-07] MEDS ORDERED: DEXAMETHASONE 10 MG/ML VIAL ONE (09:15)
[2020-08-07] MEDS ORDERED: HYDROmorphone 1 MG/ML SYRINGE ONE (09:15)
[2020-08-07] MEDS ORDERED: BACITRACIN 50,000 UNIT VIAL IR ONE (09:30)
[2020-08-07] MEDS: VANCOMYCIN 1,000 MG in 0.9 % SODIUM CHLORIDE 250 ML IV SCH (09:33)
--- NOTE | 2020-08-07 09:54 | Brief Operative Note ---
Brief Operative Note Date of procedure: 08/07/20 Pre-op diagnosis: abscess left forearm with sepsis Post-op diagnosis: other (abscess left forearm with sepsis) Procedure: incision and drainage of left forearm abscess with debridement of veiv and fascia Grafts/Implants: No Anesthesia: GLMA Findings: abscess at antecubital space with gross purulence in veins and early f ascial necrosis Complications: none Surgeon: Tara Ceron Estimated blood loss (cc): 15 Specimens Removed/Pathology: other (culture of pus from subcutaneous ) Condition: critical Disposition: PACU
[2020-08-07] MEDS ORDERED: IPRATROPIUM/ALBUTEROL 3 ML AMPUL.NEB NEB PRN ×2 (09:57→10:39)
[2020-08-07] MEDS ORDERED: ACETAMINOPHEN 1,000 MG/100 ML BAG IV ONE (09:57)
[2020-08-07] MEDS ORDERED: FLUMAZENIL 0.1 MG/ML ML IV PRN (09:57)
[2020-08-07] MEDS ORDERED: NALOXONE HCL 0.4 MG/ML VIAL IV PRN (09:57)
[2020-08-07] MEDS ORDERED: fentaNYL 100 MCG/2 ML VIAL IV PRN (09:57)
[2020-08-07] MEDS ORDERED: LACTATED RINGERS 250 ML IV PRN (09:57)
[2020-08-07] MEDS ORDERED: LACTATED RINGERS 1,000 ML IV SCH (10:00)
[2020-08-07] MEDS ORDERED: ACETAMINOPHEN 325 MG TABLET PO PRN (10:39)
[2020-08-07] MEDS ORDERED: PROMETHAZINE 25 MG/ML VIAL IV PRN (10:39)
[2020-08-07] MEDS ORDERED: IOPAMIDOL 100 ML BOTTLE IV ONE (10:39)
[2020-08-07] MEDS ORDERED: SENNOSIDES 1 TABLET PO PRN (10:39)
[2020-08-07] MEDS ORDERED: POTASSIUM CHLORIDE 20 MEQ TABLET PO PRN ×2 (10:39)
[2020-08-07] MEDS ORDERED: HYDROcodone/APAP 5/325MG TABLET PO PRN (10:39)
[2020-08-07] MEDS ORDERED: ONDANSETRON 4 MG/2 ML VIAL IV PRN (10:39)
[2020-08-07] MEDS ORDERED: cloNIDine HCL 0.1 MG TABLET PO PRN (10:39)
[2020-08-07] MEDS ORDERED: METHADONE 5 MG TABLET PO PRN (10:39)
[2020-08-07] MEDS ORDERED: POTASSIUM CHLORIDE 40 MEQ in DEXTROSE 5% IN WATER 500 ML IV PRN (10:39)
[2020-08-07] MEDS ORDERED: LACTULOSE 20 GM/30 ML ORAL.SOL PO PRN (10:39)
[2020-08-07] MEDS ORDERED: VANCOMYCIN PER PHARMACY IV SCH (10:39)
[2020-08-07] MEDS ORDERED: MAGNESIUM SULFATE 2 GM/50 ML BAG IV PRN (10:39)
[2020-08-07] MEDS ORDERED: LOPERAMIDE 2 MG CAPSULE PO PRN (10:39)
[2020-08-07] MEDS ORDERED: LORazepam 2 MG/ML VIAL IV PRN (10:39)
[2020-08-07] MEDS: ENOXAPARIN 80 MG/0.8 ML SYRINGE SQ SCH ×2 (10:51→21:47)
[2020-08-07] MEDS ORDERED: LORazepam 2 MG/ML VIAL IV SCH (13:45)
[2020-08-07] MEDS: ceFAZolin 1 GM VIAL IV SCH ×2 (16:00→21:46)
[2020-08-07] MEDS: HYDROmorphone 1 MG/ML SYRINGE IV PRN ×2 (16:51→21:46)
[2020-08-07] MEDS: LORazepam 2 MG/ML VIAL IV PRN ×2 (17:22→21:56)
[2020-08-07] MEDS ORDERED: NICOTINE 21 MG PATCH ONE (17:23)
[2020-08-07] MEDS: NICOTINE 21 MG PATCH TOPICAL SCH (17:26)
[2020-08-07] MEDS ORDERED: VANCOMYCIN 1,000 MG in 0.9 % SODIUM CHLORIDE 250 ML IV SCH (21:00)
[2020-08-07] MEDS: LACTOBACILLUS 1 CAPSULE PO SCH (21:47)
[2020-08-08] MEDS: HYDROmorphone 1 MG/ML SYRINGE IV PRN ×5 (04:38→18:25)
[2020-08-08] MEDS: 0.9 % SODIUM CHLORIDE 10 ML SYRINGE IV SCH ×4 (04:39→21:01)
[2020-08-08] MEDS: CLINDAMYCIN 600 MG in DEXTROSE 5% IN WATER 50 ML IV SCH ×2 (05:47→14:00)
[2020-08-08] MEDS: ceFAZolin 1 GM VIAL IV SCH ×3 (05:47→21:01)
[2020-08-08 07:42] LABS: ALT/SGPT 75 U/L (<40); AST/SGOT 108 U/L (<40); Albumin 2.5 gm/dL (3.2-5.2); Albumin/Globulin Ratio 0.8 (1.0-2.3); Alkaline Phosphatase 126 U/L (39-117); Bilirubin,Direct 0.3 mg/dL (<0.3); Bilirubin,Total 0.5 mg/dL (0.1-1.0); Blood Urea Nitrogen 14 mg/dL (6-20); Calcium 7.7 mg/dL (8.6-10.4); Carbon Dioxide 23 mmol/L (22-30); Chloride 98 mmol/L (96-108); Glomerular Filtration Rate 120; Glucose 83 mg/dL (70-105); Lactate Dehydrogenase 163 U/L (135-225); Phosphorous 2.9 mg/dL (2.5-4.5); Triglycerides 170 mg/dL (<150); Uric Acid 3.1 mg/dL (2.5-8.0)
--- NOTE | 2020-08-08 07:48 | Internal Med Progress Note ---
SUBJECTIVE Subjective Patient information: Note initiated : 08/08/20 at 7:42 am Service Date, if different from initiated Date: [] Patient: Cash Dumont 30 y/o M admitted on 08/05/20 for IV drug use infection. Chief Complaint: [] Interval history: History of present illness: Mr. Dumont is a 30 year old M Presents the ED with body aches diarrhea headaches and fever with the left arm that is red painful and swollen. Last used IV heroin about 4-5 days ago and felt he missed the vein. Also reports opiate withdrawal symptoms including diar lisa and abdominal achiness and urinary continence. Has had lightheadedness and dizziness. Reports hallucinations. He does use marijuana as well and occasionally uses methamphetamine. 08/06 No overnight event or new complaints. Electrolytes improving. Did get methadone for withdrawal at night. 08/07 States poor sleep. Sodium appropriate. Initially sodium showed rapid increase in the throughout the ED and so we attempted reversal but essentially stalled at and has been an appropriate elevation over 48 hours. Patient will get a I&D of his arm abscess today by Dr. Ceron. Persistent leukocytosis I suspect related to the abscess that has not been drained yet. Chemistry panel improving. 08/08 Patient had I&D of arm yesterday. No overnight event. Sodium appropriate. Occasional headache but otherwise no new complaints. Review of Systems: denies fever/chills/nausea/vomiting/chest or abdominal pain/cough/dyspnea/diarrhea. Otherwise see above. Constitutional Vitals: Vital Signs Temp Pulse Resp BP Pulse Ox 98.1 F 90 18 93/51 97 08/08/20 07:13 08/08/20 07:13 08/08/20 07:13 08/08/20 07:13 08/08/20 07:13 Period Temp Pulse Resp BP Sys/Soliz Pulse Ox Last 24 Hr 97.3 F-99 F 78-101 13-18 91-112/49-64 93-100 Intake and Output 08/07/20 08/08/20 08/08/20 21:59 05:59 13:59 Intake Total 294 824 54 Output Total 525 400 Balance -231 424 54 Weight 67.54 kg Intake & Output: Intake & Output 08/07/20 08/08/20 08/08/20 21:59 05:59 13:59 Intake Total 294 824 54 Output Total 525 400 Balance -231 424 54 Weight 67.54 kg Intake: IV 54 54 54 Cleocin 600 mg In Dextrose 5% 54 54 54 in Water 50 ml @ 100 mls/hr IV Q8H [facility] Rx#:[id number] Oral 240 770 Output: Void Amount 525 400 Other: Meal Dinner Percent of Meal Consumed 100% Feeding Ability Independent Urine Appearance Clear Clear Urine Color Bright Yellow Dark Yellow Urine Odor Normal Normal # Voids 1 Exam: General: Alert, Awake, No acute Distress Eyes/N/T: EOMI, Head/Neck: neck supple, CV: RRR, 2/6 SM (no vegetations on echo) Pulm: Clear b/l, no wheezing/rhonchi/rales Abd: soft, nontender, +BS x4 Ext: no clubbing/cyanosis/edema LE's, LUE elbow to wrist erythematous/edematous/tender to touch/indurated - Improved Neuro: Alert, no focal deficits, moves all extremities, Skin: warm/dry OBJ DATA Labs CBC & Chem 7: 08/07/20 05:28 08/08/20 04:50 Labs: Abnormal Lab Results 08/07/20 08/07/20 08/06/20 05:28 05:28 18:08 WBC 18.0 H RBC 3.32 L Hgb 9.4 L Hct 27.2 L POC Hct 29 L MPV 10.9 H Lymph % (Auto) [place] # (Auto) 1.10 H Absolute Neutrophils 13.65 H ESR POC Sodium 127 L Sodium 127 L POC Potassium 3.1 L POC Chloride 93 L Chloride 94 L Carbon Dioxide POC Total CO2 20 L POC BUN BUN POC Creatinine POC Glucose 131 H Calcium 7.7 L POC WB Ioniz Calcium 1.07 L Phosphorus Direct Bilirubin 0.5 H AST 51 H ALT 54 H Alkaline Phosphatase 124 H Total Protein 5.5 L Albumin 2.3 L Albumin/Globulin Ratio 0.7 L Triglycerides Procalcitonin Hepatitis C Antibody 08/06/20 08/06/20 08/06/20 14:10 10:20 04:54 WBC RBC Hgb Hct POC Hct 27 L 30 L MPV Lymph % (Auto) [place] # (Auto) Absolute Neutrophils ESR POC Sodium 126 L 127 L Sodium 126 L 126 L POC Potassium POC Chloride Chloride 94 L Carbon Dioxide 18 L 19 L POC Total CO2 20 L 19 L POC BUN BUN 21 H POC Creatinine POC Glucose Calcium 7.5 L 7.3 L POC WB Ioniz Calcium 0.99 L 1.00 L Phosphorus 2.2 L Direct Bilirubin 0.4 H AST 53 H ALT 56 H Alkaline Phosphatase Total Protein 5.2 L Albumin 2.1 L Albumin/Globulin Ratio 0.7 L Triglycerides 216 H Procalcitonin Hepatitis C Antibody 08/06/20 08/05/20 08/05/20 04:54 18:37 15:43 WBC 16.2 H RBC 3.18 L Hgb 9.1 L Hct 26.5 L POC Hct 31 L 32 L MPV 12.2 H Lymph % (Auto) 14.5 L [place] # (Auto) 1.36 H Absolute Neutrophils 12.16 H ESR POC Sodium 126 L 127 L Sodium 124 L POC Potassium POC Chloride Chloride 93 L Carbon Dioxide 19 L POC Total CO2 18 L 19 L POC BUN 25 H 27 H BUN 30 H POC Creatinine POC Glucose 122 H Calcium 7.4 L POC WB Ioniz Calcium 1.05 L 1.06 L Phosphorus Direct Bilirubin AST ALT Alkaline Phosphatase Total Protein Albumin Albumin/Globulin Ratio Triglycerides Procalcitonin Hepatitis C Antibody 08/05/20 08/05/20 08/05/20 12:02 07:54 04:35 WBC RBC Hgb Hct POC Hct 30 L MPV Lymph % (Auto) [place] # (Auto) Absolute Neutrophils ESR POC Sodium 125 L Sodium POC Potassium 2.7 L* POC Chloride Chloride Carbon Dioxide POC Total CO2 17 L POC BUN 29 H BUN POC Creatinine 1.3 H POC Glucose 117 H Calcium POC WB Ioniz Calcium 1.01 L Phosphorus Direct Bilirubin AST ALT Alkaline Phosphatase Total Protein Albumin Albumin/Globulin Ratio Triglycerides Procalcitonin 13.07 H Hepatitis C Antibody See comment A 08/05/20 04:35 WBC RBC Hgb Hct POC Hct MPV Lymph % (Auto) [place] # (Auto) Absolute Neutrophils ESR 43 H POC Sodium Sodium POC Potassium POC Chloride Chloride Carbon Dioxide POC Total CO2 POC BUN BUN POC Creatinine POC Glucose Calcium POC WB Ioniz Calcium Phosphorus Direct Bilirubin AST ALT Alkaline Phosphatase Total Protein Albumin Albumin/Globulin Ratio Triglycerides Procalcitonin Hepatitis C Antibody Meds: Medications Acetaminophen (Tylenol) 650 mg PO Q6HP PRN PRN Reason: PAIN/FEVER > 101 Hydrocodone Bitart/Acetaminophen ([place] 10/325mg) 1 tab PO Q4HP PRN; Protocol PRN Reason: Per Pain Protocol Albuterol/Ipratropium (Duoneb) 3 ml NEB Q4HP PRN PRN Reason: Shortness Of Breath Cefazolin Sodium (Ancef) 2 gm IV Q8H [facility] Last Admin: 08/08/20 05:47 Dose: 2 gm Documented by: Clonidine HCl (Catapres) 0.1 mg PO Q4HP PRN PRN Reason: opioid withdrawal Docusate Sodium (Colace) 100 mg PO BID [facility] Last Admin: 08/07/20 21:48 Dose: Not Given Documented by: Enoxaparin Sodium (Lovenox) 70 mg SQ BID [facility] Last Admin: 08/07/20 21:47 Dose: 70 mg Documented by: Hydromorphone HCl (Dilaudid) 1 mg IV Q2HP PRN; Protocol PRN Reason: Per Pain Protocol Last Admin: 08/08/20 07:35 Dose: 1 mg Documented by: Clindamycin Phosphate 600 mg/ (Dextrose) 54 mls @ 100 mls/hr IV Q8H [facility]; Protocol Stop: 08/08/20 14:33 Last Infusion: 08/08/20 06:20 Dose: Infused Documented by: Magnesium Sulfate (Magnesium Sulfate) 2 gm in 50 mls @ 50 mls/hr IV UD PRN PRN Reason: Magnesium </= 1.6 Potassium Chloride 40 meq/ (Dextrose) 520 mls @ 130 mls/hr IV UD PRN PRN Reason: Potassium < 3 Lactobacillus Rhamnosus (Culturelle) 1 cap PO BID [facility] Last Admin: 08/07/20 21:47 Dose: 1 cap Documented by: Lactulose (Cephulac) 20 gm PO DAILYP PRN PRN Reason: Constipation Loperamide HCl (Imodium) 2 mg PO DAILYP PRN PRN Reason: Diarrhea Lorazepam (Ativan) 2 mg IV Q4HP PRN PRN Reason: Agitation Last Admin: 08/07/20 21:56 Dose: 2 mg Documented by: Methadone HCl (Dolophine) 20 mg PO DAILYP PRN PRN Reason: opioid withdrawal Nicotine (Nicoderm) 21 mg TOPICAL DAILY@1000 [facility] Last Admin: 08/07/20 17:26 Dose: 21 mg Documented by: Ondansetron HCl (Zofran) 4 mg IV Q4HP PRN PRN Reason: Nausea And Vomiting Potassium Chloride (Kdur) 40 meq PO UD PRN PRN Reason: Potssium is 3-3.5 Potassium Chloride (Kdur) 40 meq PO UD PRN PRN Reason: Potassium < 3 Promethazine HCl (Phenergan) 25 mg IV Q4-6HP PRN PRN Reason: Nausea And Vomiting Senna (Senokot) 2 tab PO DAILYP PRN PRN Reason: Constipation Sodium Chloride (Saline Flush) 10 ml IV Q8 [facility] Last Admin: 08/08/20 05:48 Dose: 10 ml Documented by: A/P Narrative A/P Narrative: A: *LUE cellulitis w/abscess: s/p I&D (08/07) *Bacteremia(Strep pyogenes): 2/2 above *Sepsis: lactate wnl. improved -afebrile now, *LUE superficial VT w/thrombophlebitis & DVT (axillary) with Edema(improving): *Hyponatremia, hypo-osmol: 2/2 to free water loss (diarrhea/volume depletion) *Hypokalemia/hypocalcemia: resolved *EMELINA: 2/2 above -improved *volume depletion: improved *Substance abuse with IV heroin/methamphetamines/marijuana use: -UDS with opioids and Meth -no vegetations on TTE *Transaminitis: 2/2 likley substance abuse (meth), Improved -liver u/s unremarkable, hepatitis panel final results pending *Tobacco abuse: *Urinary retention: prn straight cath P: -clinda for 1 more day. cont Cefazolin, if able to place will go to Rocephin daily. needs 2 weeks IV abx. -f/u monitor sodium -lovenox bid -prn methadone/clonidine/imodium/promethazine for w/d symptoms, seem to be past symptoms -prn straight cath -f/u with Dr. Blaze torrespt -Smoking cessation counseling -ppx: lovenox bid Time Spent With Patient Time: Total time spent is greater than 50% in coordination of care (as татьяна moore) at patient's floor/unit and/or counseling patient: QUALITY VTE Deep Vein Thrombosis/Pulmonary Embolism Present on Admission: Yes
[2020-08-08] MEDS ORDERED: ceFAZolin 2 GM in DEXTROSE 5% IN WATER 50 ML IV SCH (08:00)
[2020-08-08] MEDS ORDERED: cefTRIAXone 2 GM in DEXTROSE 5% IN WATER 50 ML IV SCH (09:00)
[2020-08-08] MEDS: LACTOBACILLUS 1 CAPSULE PO SCH ×2 (09:39→20:48)
[2020-08-08] MEDS: DOCUSATE SODIUM 100 MG CAPSULE PO SCH ×2 (09:40→20:48)
[2020-08-08] MEDS: ENOXAPARIN 80 MG/0.8 ML SYRINGE SQ SCH ×2 (09:41→21:00)
[2020-08-08] MEDS: NICOTINE 21 MG PATCH TOPICAL SCH (09:44)
--- NOTE | 2020-08-08 14:28 | General Surgery Progress Note ---
SUBJECTIVE Subjective Patient information: Note initiated : 08/08/20 at 2:24 pm Service Date, if different from initiated Date: [] Patient: Cash Dumont 30 y/o M admitted on 08/05/20 for IV drug use infection. Chief Complaint: [] Principal diagnosis: abscesses, cellulitis left arm Interval history: patient is gradually improving. The edema. The left arm is improved. He still has significant cellulitis of the forearm. Dressing change was performed. The base of the wound is clean. Constitutional Vitals: Vital Signs Temp Pulse Resp BP Pulse Ox 98.6 F 104 H 18 105/66 97 08/08/20 11:52 08/08/20 11:52 08/08/20 11:52 08/08/20 11:52 08/08/20 11:52 Period Temp Pulse Resp BP Sys/Soliz Pulse Ox Last 24 Hr 97.3 F-98.6 F 78-104 17-18 92-105/51-66 95-99 Intake and Output 08/08/20 08/08/20 08/08/20 05:59 13:59 21:59 Intake Total 824 454 Output Total 400 Balance 424 454 Intake & Output: Intake & Output 08/08/20 08/08/20 08/08/20 05:59 13:59 21:59 Intake Total 824 454 Output Total 400 Balance 424 454 Intake: IV 54 54 Cleocin 600 mg In Dextrose 5% 54 54 in Water 50 ml @ 100 mls/hr IV Q8H [facility] Rx#:[id number] Oral 770 400 Output: Void Amount 400 Other: Meal Dinner Breakfast Percent of Meal Consumed 100% 50% Feeding Ability Independent Independent Urine Appearance Clear Urine Color Dark Yellow Urine Odor Normal # Voids 1 Head Head exam: Present atraumatic, normal inspection and normocephalic Eye Eye exam: Present EOMI Pupils: Present normal accommodation and PERRL ENT ENT exam: Present normal exam and normal oropharynx Neck Neck exam: Present full ROM and normal inspection; Absent lymphadenopathy Respiratory Respiratory exam: Present normal respiratory exam and CTAB Cardiovascular Cardiovascular exam: Present normal rate and rhythm, RRR, +S1 and +S2; Absent gallop GI/Abdominal GI/Abdominal exam: Present normal bowel sounds; Absent distended and tenderness Extremities Exam Additional comments: cellulitis with edema of left forearm starting at the antecubital space. The purulent drainage from the incision is significantly improved. Dressing change was done. Neurological Exam Neurological exam: Present CN II-XII intact and oriented X3 Psychiatric Psychiatric exam: Present anxious and flat affect A/P Assessment and plan (1) Abscess of left forearm: Status: Acute (2) Bacteremia due to Streptococcus: Status: Acute (3) Deep vein thrombosis (DVT) of left upper extremity: Status: Acute Qualifiers: Affected thrombotic vein of extremity: unspecified vein of extremity Chronicity: acute Qualified Code(s): I82.622 - Acute embolism and thrombosis of deep veins of left upper extremity (4) Heroin withdrawal: Status: Acute (5) Cellulitis: Status: Acute Qualifiers: Laterality: left Site of cellulitis: extremity Site of cellulitis of extremity: upper extremity Qualified Code(s): L03.114 - Cellulitis of left upper limb (6) IVDU (intravenous drug user): Status: Acute Comment: heroin Narrative A/P Narrative: continue present antibiotic therapy. Repeat dressing changes in 2 days Time Spent With Patient Time: Total time spent is greater than 50% in coordination of care (as documented) at patient's floor/unit and/or counseling patient:
--- NOTE | 2020-08-08 14:37 | Internal Med Progress Note ---
SUBJECTIVE Subjective Patient information: Note initiated : 08/08/20 at 2:25 pm Service Date, if different from initiated Date: [] Patient: Cash Dumont a 30 y/o M admitted on 08/05/20 for IV drug use infection. Chief Complaint: [] Interval history: History of present illness: Mr. Dumont is a 30 year old M Presents the ED with body aches diarrhea headaches and fever with the left arm that is red painful and swollen. Last used IV heroin about 4-5 days ago and felt he missed the vein. Also reports opiate withdrawal symptoms including diar lisa and abdominal achiness and urinary continence. Has had lightheadedness and dizziness. Reports hallucinations. He does use marijuana as well and occasionally uses methamphetamine. 08/06 No overnight event or new complaints. Electrolytes improving. Did get methadone for withdrawal at night. 08/07 States poor sleep. Sodium appropriate. Initially sodium showed rapid increase in the throughout the ED and so we attempted reversal but essentially stalled at and has been an appropriate elevation over 48 hours. Patient will get a I&D of his arm abscess today by Dr. Ceron. Persistent leukocytosis I suspect related to the abscess that has not been drained yet. Chemistry panel improving. 08/08 Patient had I&D of arm yesterday. No overnight event. Sodium appropriate. Occasional headache but otherwise no new complaints. 08/09 Had blood oozing from wound so returned to OR for second look-likely cephalic vein bleed. Discontinued Lovenox SQ. Review of Systems: denies fever/chills/nausea/vomiting/chest or abdominal pain/cough/dyspnea/diarrhea. Otherwise see above. Constitutional Vitals: Vital Signs Temp Pulse Resp BP Pulse Ox 98.6 F 104 H 18 105/66 97 08/08/20 11:52 08/08/20 11:52 08/08/20 11:52 08/08/20 11:52 08/08/20 11:52 Period Temp Pulse Resp BP Sys/Soliz Pulse Ox Last 24 Hr 97.3 F-98.6 F 78-104 17-18 92-105/51-66 95-99 Intake and Output 08/08/20 08/08/20 08/08/20 05:59 13:59 21:59 Intake Total 824 454 Output Total 400 Balance 424 454 Intake & Output: Intake & Output 01/08/08/20 08/08/20 05:59 13:59 21:59 Intake Total 824 454 Output Total 400 Balance 424 454 Intake: IV 54 54 Cleocin 600 mg In Dextrose 5% 54 54 in Water 50 ml @ 100 mls/hr IV Q8H [facility] Rx#:[id number] Oral 770 400 Output: Void Amount 400 Other: Meal Dinner Breakfast Percent of Meal Consumed 100% 50% Feeding Ability Independent Independent Urine Appearance Clear Urine Color Dark Yellow Urine Odor Normal # Voids 1 Head Head exam: Present atraumatic and normal inspection Neck Neck exam: Present full ROM; Absent tenderness Respiratory Respiratory exam: Absent accessory muscle use and respiratory distress Cardiovascular Cardiovascular exam: Present normal rate and rhythm GI/Abdominal GI/Abdominal exam: Present soft; Absent distended and tenderness Extremities Exam Additional comments: surgical incision at left antecubital fossa oozing blood Neurological Exam Neurological exam: Present alert, CN II-XII intact and oriented X3 Psychiatric Psychiatric exam: Present normal affect and normal mood Skin Skin exam: Present erythema OBJ DATA Labs CBC & Chem 7: 08/09/20 04:50 08/09/20 04:50 Labs: Abnormal Lab Results 08/08/20 08/07/20 08/07/20 04:50 05:28 05:28 WBC 18.0 H RBC 3.32 L Hgb 9.4 L Hct 27.2 L POC Hct MPV 10.9 H Lymph % (Auto) [place] # (Auto) 1.10 H Absolute Neutrophils 13.65 H POC Sodium Sodium 131 L 127 L POC Potassium POC Chloride Chloride 94 L Carbon Dioxide POC Total CO2 POC BUN BUN POC Glucose Calcium 7.7 L 7.7 L POC WB Ioniz Calcium Phosphorus Direct Bilirubin 0.3 H 0.5 H AST 108 H 51 H ALT 75 H 54 H Alkaline Phosphatase 126 H 124 H Total Protein 5.5 L 5.5 L Albumin 2.5 L 2.3 L Albumin/Globulin Ratio 0.8 L 0.7 L Triglycerides 170 H 08/06/20 08/06/20 08/06/20 18:08 14:10 10:20 WBC RBC Hgb Hct POC Hct 29 L 27 L 30 L MPV Lymph % (Auto) [place] # (Auto) Absolute Neutrophils POC Sodium 127 L 126 L 127 L Sodium 126 L POC Potassium 3.1 L POC Chloride 93 L Chloride Carbon Dioxide 18 L POC Total CO2 20 L 20 L 19 L POC BUN BUN POC Glucose 131 H Calcium 7.5 L POC WB Ioniz Calcium 1.07 L 0.99 L 1.00 L Phosphorus Direct Bilirubin AST ALT Alkaline Phosphatase Total Protein Albumin Albumin/Globulin Ratio Triglycerides 08/06/20 08/06/20 08/05/20 04:54 04:54 18:37 WBC 16.2 H RBC 3.18 L Hgb 9.1 L Hct 26.5 L POC Hct 31 L MPV 12.2 H Lymph % (Auto) 14.5 L [place] # (Auto) 1.36 H Absolute Neutrophils 12.16 H POC Sodium 126 L Sodium 126 L POC Potassium POC Chloride Chloride 94 L Carbon Dioxide 19 L POC Total CO2 18 L POC BUN 25 H BUN 21 H POC Glucose 122 H Calcium 7.3 L POC WB Ioniz Calcium 1.05 L Phosphorus 2.2 L Direct Bilirubin 0.4 H AST 53 H ALT 56 H Alkaline Phosphatase Total Protein 5.2 L Albumin 2.1 L Albumin/Globulin Ratio 0.7 L Triglycerides 216 H 08/05/20 15:43 WBC RBC Hgb Hct POC Hct 32 L MPV Lymph % (Auto) [place] # (Auto) Absolute Neutrophils POC Sodium 127 L Sodium 124 L POC Potassium POC Chloride Chloride 93 L Carbon Dioxide 19 L POC Total CO2 19 L POC BUN 27 H BUN 30 H POC Glucose Calcium 7.4 L POC WB Ioniz Calcium 1.06 L Phosphorus Direct Bilirubin AST ALT Alkaline Phosphatase Total Protein Albumin Albumin/Globulin Ratio Triglycerides Meds: Medications Acetaminophen (Tylenol) 650 mg PO Q6HP PRN PRN Reason: PAIN/FEVER > 101 Hydrocodone Bitart/Acetaminophen ([place] 10/325mg) 1 tab PO Q4HP PRN; Protocol PRN Reason: Per Pain Protocol Albuterol/Ipratropium (Duoneb) 3 ml NEB Q4HP PRN PRN Reason: Shortness Of Breath Cefazolin Sodium (Ancef) 2 gm IV Q8H [facility] Last Admin: 08/08/20 13:11 Dose: 2 gm Documented by: Clonidine HCl (Catapres) 0.1 mg PO Q4HP PRN PRN Reason: opioid withdrawal Docusate Sodium (Colace) 100 mg PO BID [facility] Last Admin: 08/08/20 09:40 Dose: Not Given Documented by: Enoxaparin Sodium (Lovenox) 70 mg SQ BID [facility] Last Admin: 08/08/20 09:41 Dose: 70 mg Documented by: Hydromorphone HCl (Dilaudid) 1 mg IV Q2HP PRN; Protocol PRN Reason: Per Pain Protocol Last Admin: 08/08/20 13:00 Dose: 1 mg Documented by: Clindamycin Phosphate 600 mg/ (Dextrose) 54 mls @ 100 mls/hr IV Q8H [facility]; Protocol Stop: 08/08/20 14:33 Last Admin: 08/08/20 14:00 Dose: 100 mls/hr Documented by: Magnesium Sulfate (Magnesium Sulfate) 2 gm in 50 mls @ 50 mls/hr IV UD PRN PRN Reason: Magnesium </= 1.6 Potassium Chloride 40 meq/ (Dextrose) 520 mls @ 130 mls/hr IV UD PRN PRN Reason: Potassium < 3 Lactobacillus Rhamnosus (Culturelle) 1 cap PO BID [facility] Last Admin: 08/08/20 09:39 Dose: 1 cap Documented by: Lactulose (Cephulac) 20 gm PO DAILYP PRN PRN Reason: Constipation Loperamide HCl (Imodium) 2 mg PO DAILYP PRN PRN Reason: Diarrhea Lorazepam (Ativan) 2 mg IV Q4HP PRN PRN Reason: Agitation Last Admin: 08/07/20 21:56 Dose: 2 mg Documented by: Methadone HCl (Dolophine) 20 mg PO DAILYP PRN PRN Reason: opioid withdrawal Nicotine (Nicoderm) 21 mg TOPICAL DAILY@1000 YVONNE Last Admin: 08/08/20 09:44 Dose: 21 mg Documented by: Ondansetron HCl (Zofran) 4 mg IV Q4HP PRN PRN Reason: Nausea And Vomiting Potassium Chloride (Kdur) 40 meq PO UD PRN PRN Reason: Potssium is 3-3.5 Potassium Chloride (Kdur) 40 meq PO UD PRN PRN Reason: Potassium < 3 Promethazine HCl (Phenergan) 25 mg IV Q4-6HP PRN PRN Reason: Nausea And Vomiting Senna (Senokot) 2 tab PO DAILYP PRN PRN Reason: Constipation Sodium Chloride (Saline Flush) 10 ml IV Q8 [facility] Last Admin: 08/08/20 14:01 Dose: 10 ml Documented by: A/P Assessment and plan (1) Bacteremia due to Streptococcus: Status: Acute (2) Abscess of left forearm: Status: Acute (3) IVDU (intravenous drug user): Status: Acute Comment: heroin (4) Deep vein thrombosis (DVT) of left upper extremity: Status: Acute Qualifiers: Affected thrombotic vein of extremity: unspecified vein of extremity Chronicity: acute Qualified Code(s): I82.622 - Acute embolism and thrombosis of deep veins of left upper extremity (5) Heroin withdrawal: Status: Acute (6) Acute dehydration: Status: Acute Narrative A/P Narrative: ASSESSMENT:30 year old male with a history of substance use disorder (opioid, methamphetamine) admitted for LUE abscess/cellulitis and bacteremia secondary to recent IV heroin injection. Blood cultures and surgical cultures grew group A streptococcus. The patient was treated with cefazolin and I&D of the abscess. The infection was complicated by LUE DVT which was treated with lovenox. U nfortunately the patient then developed a bleed at the I&D surgical site that required an emergent trip to the OR for exploration. The cause of the bleed was felt to be venous from the cephalic vein in the setting of anticoagulation. Lovenox was discontinued, the bleed stabilized with surgery following closely. #LUE abscess w/ cellulitis: s/p I&D and complicated by bleeding #Streptococcus pyogenes bacteremia #Probable blood culture contaminant w/ gram positive bacillus #Sepsis:resolved #LUE DVT #EMELINA: resolved #Hyponatremia: resolved #Hypokalemia: resolved #Substance use disorder-Heroin/Methamphetamine/Marijuana #Transaminitis-high risk for chronic hepatitis C infection #Tobacco use disorder #Urinary retention P: -continue Cefazolin, if able to place will go to Rocephin daily. needs 2 weeks IV abx. -holding lovenox for bleeding from surgical incision -prn methadone/clonidine/imodium/promethazine for w/d symptoms, seem to be past symptoms -pending ECHO report -pending Hep C results -wound cares -prn straight cath -f/u with Dr. Thakur outpt -Smoking cessation counseling -Dispo: hx of IVDU will complicate discharge planning, needs at least 2 weeks of abx from first negative blood culture. Time Spent With Patient Time: Total time spent is greater than 50% in coordination of care (as doc umented) at patient's floor/unit and/or counseling patient: 36 QUALITY VTE Deep Vein Thrombosis/Pulmonary Embolism Present on Admission: Yes
[2020-08-08 15:31] LABS: Basophils # (Auto) 0.07 K/mcL (0.00-0.20); Basophils % (Auto) 0.4 % (0.0-2.0); Eosinophils # (Auto) 0.07 K/mcL (0.00-0.70); Eosinophils % (Auto) 0.4 % (0.0-7.0); Hematocrit 26.9 % (41.0-55.0); Hemoglobin 9.1 g/dL (13.5-16.5); Lymphocytes # (Auto) 2.63 K/mcL (1.50-4.80); Lymphocytes % (Auto) 15.9 % (15.0-49.0); Mean Cell Volume 83.3 fL (80.0-100.0); Mean Corpuscular HGB Conc 33.8 g/dL (31.0-36.0); Mean Platelet Volume 11.2 fL (7.4-10.4); Monocytes # (Auto) 0.93 K/mcL (0.10-0.90); Monocytes % (Auto) 5.6 % (1.0-12.0); Neutrophils % (Auto) 77.7 % (38.0-78.0); Platelet Count 275 K/mcL (140-440); RBC 3.23 M/mcL (4.50-5.90); Red Cell Distribution Width 14.1 % (11.5-14.5); WBC 16.5 K/mcL (4.5-11.0)
[2020-08-08] MEDS: HYDROcodone/APAP 10/325MG TABLET PO PRN ×2 (19:25→23:45)
[2020-08-09] MEDS: 0.9 % SODIUM CHLORIDE 10 ML SYRINGE IV SCH ×3 (05:06→21:24)
[2020-08-09] MEDS: ceFAZolin 1 GM VIAL IV SCH ×3 (05:07→21:24)
[2020-08-09] MEDS: HYDROcodone/APAP 10/325MG TABLET PO PRN ×3 (05:07→22:34)
[2020-08-09 07:12] LABS: Basophils # (Auto) 0.08 K/mcL (0.00-0.20); Basophils % (Auto) 0.6 % (0.0-2.0); Eosinophils # (Auto) 0.24 K/mcL (0.00-0.70); Eosinophils % (Auto) 1.9 % (0.0-7.0); Hematocrit 27.8 % (41.0-55.0); Hemoglobin 9.2 g/dL (13.5-16.5); Lymphocytes # (Auto) 2.57 K/mcL (1.50-4.80); Lymphocytes % (Auto) 20.3 % (15.0-49.0); Mean Cell Volume 85.3 fL (80.0-100.0); Mean Corpuscular HGB Conc 33.1 g/dL (31.0-36.0); Monocytes # (Auto) 0.95 K/mcL (0.10-0.90); Monocytes % (Auto) 7.5 % (1.0-12.0); Neutrophils % (Auto) 69.7 % (38.0-78.0); Platelet Count 408 K/mcL (140-440); RBC 3.26 M/mcL (4.50-5.90); Red Cell Distribution Width 14.3 % (11.5-14.5); WBC 12.7 K/mcL (4.5-11.0)
[2020-08-09 07:16] LABS: ALT/SGPT 99 U/L (<40); AST/SGOT 114 U/L (<40); Albumin 2.3 gm/dL (3.2-5.2); Albumin/Globulin Ratio 0.7 (1.0-2.3); Alkaline Phosphatase 148 U/L (39-117); Bilirubin,Direct 0.2 mg/dL (<0.3); Bilirubin,Total 0.4 mg/dL (0.1-1.0); Blood Urea Nitrogen 9 mg/dL (6-20); Calcium 7.9 mg/dL (8.6-10.4); Carbon Dioxide 25 mmol/L (22-30); Chloride 103 mmol/L (96-108); Globulin 3.4 gm/dL (2.2-3.7); Glomerular Filtration Rate 115; Glucose 90 mg/dL (70-105); Lactate Dehydrogenase 150 U/L (135-225); Phosphorous 2.8 mg/dL (2.5-4.5); Triglycerides 143 mg/dL (<150); Uric Acid 2.5 mg/dL (2.5-8.0)
[2020-08-09] MEDS: LACTOBACILLUS 1 CAPSULE PO SCH ×2 (10:19→21:24)
[2020-08-09] MEDS: DOCUSATE SODIUM 100 MG CAPSULE PO SCH ×2 (10:20→21:24)
[2020-08-09] MEDS: ENOXAPARIN 80 MG/0.8 ML SYRINGE SQ SCH (10:22)
[2020-08-09] MEDS: NICOTINE 21 MG PATCH TOPICAL SCH (10:23)
--- NOTE | 2020-08-09 11:46 | General Surgery Progress Note ---
SUBJECTIVE Subjective Patient information: Note initiated : 08/09/20 at 11:43 am Service Date, if different from initiated Date: [] Patient: Cash Dumont 30 y/o M admitted on 08/05/20 for IV drug use infection. Chief Complaint: [] Principal diagnosis: abscesses, cellulitis left arm Interval history: patient has developed significant bleeding from his left antecubital space and the operative site. He has some pulsatile bleeding in the area. Compression dressing is applied and the patient will be taken to the operating room for control of bleeding. There does not seem to be any compromise of vascularity to the extremity. Otherwise. Constitutional Vitals: Vital Signs Temp Pulse Resp BP Pulse Ox 98.2 F 87 16 116/70 97 08/09/20 06:50 08/09/20 10:15 08/09/20 10:15 08/09/20 06:50 08/09/20 10:15 Period Temp Pulse Resp BP Sys/Soliz Pulse Ox Last 24 Hr 97.8 F-98.8 F 87-110 16-20 92-118/50-70 95-99 Intake and Output 08/08/20 08/09/20 08/09/20 21:59 05:59 13:59 Intake Total 454 1000 180 Balance 454 1000 180 Weight 150 lb 12.8 oz Intake & Output: Intake & Output 08/08/20 08/09/20 08/09/20 21:59 05:59 13:59 Intake Total 454 1000 180 Balance 454 1000 180 Weight 150 lb 12.8 oz Intake: IV 54 Cleocin 600 mg In Dextrose 5% 54 in Water 50 ml @ 100 mls/hr IV Q8H [facility] Rx#:[id number] Oral 400 1000 180 Other: Meal Lunch Breakfast Percent of Meal Consumed 50% 50% Feeding Ability Independent Independent Urine Appearance Clear Urine Color Dark Yellow Urine Odor Strong # Voids 1 3 Head Head exam: Present atraumatic, normal inspection and normocephalic Eye Eye exam: Present EOMI Pupils: Present normal accommodation and PERRL ENT ENT exam: Present normal exam and normal oropharynx Neck Neck exam: Present full ROM and normal inspection; Absent lymphadenopathy Respiratory Respiratory exam: Present normal respiratory exam and CTAB Cardiovascular Cardiovascular exam: Present normal rate and rhythm, RRR, +S1 and +S2; Absent gallop GI/Abdominal GI/Abdominal exam: Present normal bowel sounds; Absent distended and tenderness Extremities Exam Extremities exam: Present tenderness (moderate tenderness of the forearm extending up to the antecubital space) and neurovascular intact Additional comments: bleeding from open in decision in antecubital space with pulsatile flow Neurological Exam Neurological exam: Present CN II-XII intact and oriented X3 Psychiatric Psychiatric exam: Present anxious and flat affect A/P Assessment and plan (1) Abscess of left forearm: Status: Acute (2) Bacteremia due to Streptococcus: Status: Acute (3) Deep vein thrombosis (DVT) of left upper extremity: Status: Acute Qualifiers: Affected thrombotic vein of extremity: unspecified vein of extremity Chronicity: acute Qualified Code(s): I82.622 - Acute embolism and thrombosis of deep veins of left upper extremity (4) Heroin withdrawal: Status: Acute (5) IVDU (intravenous drug user): Status: Acute Comment: heroin Narrative A/P Narrative: patient is counseled for exploration of the operative wound. This will be done expeditiously. Time Spent With Patient Time: Total time spent is greater than 50% in coordination of care (as documented) at patient's floor/unit and/or counseling patient:
[2020-08-09] MEDS ORDERED: fentaNYL 100 MCG/2 ML VIAL IV ONE (12:55)
[2020-08-09] MEDS ORDERED: GLYCOPYRROLATE 0.2 MG/ML VIAL IV ONE (12:55)
[2020-08-09] MEDS ORDERED: LIDOCAINE HCL/PF 100 MG/5 ML SYRINGE IV ONE (12:55)
[2020-08-09] MEDS ORDERED: ONDANSETRON 4 MG/2 ML VIAL ONE (12:55)
[2020-08-09] MEDS ORDERED: KETAMINE 100 MG/ML ML ONE (12:55)
[2020-08-09] MEDS ORDERED: MIDAZOLAM 5 MG/5 ML VIAL ONE (12:55)
[2020-08-09] MEDS ORDERED: PROPOFOL 200 MG/20 ML VIAL IV ONE (12:55)
[2020-08-09] MEDS ORDERED: DEXAMETHASONE 10 MG/ML VIAL ONE (12:55)
--- NOTE | 2020-08-09 13:27 | Brief Operative Note ---
Brief Operative Note Date of procedure: 08/09/20 Pre-op diagnosis: bleeding from postop incision Post-op diagnosis: same (bleeding from post op incision left antecubital space) Procedure: exploration of surgical wound of left antecubital space Grafts/Implants: No Anesthesia: MAC Findings: small vessel bleeding controlled with cautery; no major vessel bleeding noted Complications: none Surgeon: Tara Ceron Estimated blood loss (cc): 10 Specimens Removed/Pathology: none sent Condition: stable Disposition: PACU
[2020-08-09] MEDS ORDERED: IPRATROPIUM/ALBUTEROL 3 ML AMPUL.NEB NEB PRN ×3 (13:42→16:59)
[2020-08-09] MEDS ORDERED: FLUMAZENIL 0.1 MG/ML ML IV PRN (13:42)
[2020-08-09] MEDS ORDERED: NALOXONE HCL 0.4 MG/ML VIAL IV PRN (13:42)
[2020-08-09] MEDS ORDERED: fentaNYL 100 MCG/2 ML VIAL IV PRN (13:42)
[2020-08-09] MEDS ORDERED: ACETAMINOPHEN 650 MG/65 ML BAG IV ONE (13:42)
[2020-08-09] MEDS ORDERED: BENZOCAINE/MENTHOL 1 LOZENGE PO PRN (13:42)
[2020-08-09] MEDS ORDERED: LACTATED RINGERS 250 ML IV PRN (13:42)
[2020-08-09] MEDS ORDERED: LACTATED RINGERS 1,000 ML IV SCH (13:45)
[2020-08-09] MEDS ORDERED: HYDROmorphone 0.5 MG/0.5 ML SYRINGE IV ONE (13:47)
[2020-08-09] MEDS ORDERED: HYDROmorphone 0.5 MG/0.5 ML SYRINGE ONE (13:47)
[2020-08-09] MEDS ORDERED: POTASSIUM CHLORIDE 20 MEQ TABLET PO PRN ×4 (14:00→16:59)
[2020-08-09] MEDS ORDERED: cloNIDine HCL 0.1 MG TABLET PO PRN ×2 (14:00→16:59)
[2020-08-09] MEDS ORDERED: LOPERAMIDE 2 MG CAPSULE PO PRN ×2 (14:00→16:59)
[2020-08-09] MEDS ORDERED: SENNOSIDES 1 TABLET PO PRN ×2 (14:00→16:59)
[2020-08-09] MEDS ORDERED: LORazepam 2 MG/ML VIAL IV PRN ×2 (14:00→16:59)
[2020-08-09] MEDS ORDERED: PROMETHAZINE 25 MG/ML VIAL IV PRN ×2 (14:00→16:59)
[2020-08-09] MEDS ORDERED: ACETAMINOPHEN 325 MG TABLET PO PRN ×2 (14:00→16:59)
[2020-08-09] MEDS ORDERED: HYDROmorphone 1 MG/ML SYRINGE IV PRN (14:00)
[2020-08-09] MEDS ORDERED: 0.9 % SODIUM CHLORIDE 10 ML SYRINGE IV SCH (14:00)
[2020-08-09] MEDS ORDERED: MAGNESIUM SULFATE 2 GM/50 ML BAG IV PRN ×2 (14:00→16:59)
[2020-08-09] MEDS ORDERED: IOPAMIDOL 100 ML BOTTLE IV ONE ×2 (14:00→16:59)
[2020-08-09] MEDS ORDERED: HYDROcodone/APAP 10/325MG TABLET PO PRN (14:00)
[2020-08-09] MEDS ORDERED: LACTULOSE 20 GM/30 ML ORAL.SOL PO PRN ×2 (14:00→16:59)
[2020-08-09] MEDS ORDERED: ONDANSETRON 4 MG/2 ML VIAL IV PRN ×2 (14:00→16:59)
[2020-08-09] MEDS ORDERED: ceFAZolin 1 GM VIAL IV SCH (14:00)
[2020-08-09] MEDS ORDERED: POTASSIUM CHLORIDE 40 MEQ in DEXTROSE 5% IN WATER 500 ML IV PRN ×2 (14:00→16:59)
[2020-08-09] MEDS ORDERED: METHADONE 5 MG TABLET PO PRN (14:00)
[2020-08-09] MEDS: HYDROmorphone 1 MG/ML SYRINGE IV PRN ×2 (20:01→22:32)
[2020-08-09] MEDS ORDERED: LACTOBACILLUS 1 CAPSULE PO SCH (21:00)
[2020-08-09] MEDS ORDERED: DOCUSATE SODIUM 100 MG CAPSULE PO SCH (21:00)
[2020-08-10] MEDS: HYDROcodone/APAP 10/325MG TABLET PO PRN ×3 (04:28→18:32)
[2020-08-10] MEDS: HYDROmorphone 1 MG/ML SYRINGE IV PRN ×4 (04:31→15:49)
[2020-08-10] MEDS: 0.9 % SODIUM CHLORIDE 10 ML SYRINGE IV SCH ×3 (04:32→21:08)
[2020-08-10] MEDS: ceFAZolin 1 GM VIAL IV SCH ×3 (06:13→21:08)
[2020-08-10] MEDS: LACTOBACILLUS 1 CAPSULE PO SCH ×2 (08:15→21:08)
[2020-08-10] MEDS: DOCUSATE SODIUM 100 MG CAPSULE PO SCH ×2 (08:15→21:19)
[2020-08-10] MEDS ORDERED: NICOTINE 21 MG PATCH TOPICAL SCH (10:00)
[2020-08-10] MEDS: NICOTINE 21 MG PATCH TOPICAL SCH (10:44)
--- NOTE | 2020-08-10 13:55 | General Surgery Progress Note ---
SUBJECTIVE Subjective Patient information: Note initiated : 08/10/20 at 1:51 pm Service Date, if different from initiated Date: [] Patient: Cash Dumont 30 y/o M admitted on 08/05/20 for IV drug use infection. Chief Complaint: [] Principal diagnosis: abscesses, cellulitis left arm Interval history: patient is doing well. He has been picking at his incision in his left upper extremity. There is no major bleeding. He is strongly advised to not alter his dressings. The cellulitis of his left upper extremity is improving and the edema is also improving. Constitutional Vitals: Vital Signs Temp Pulse Resp BP Pulse Ox 98.5 F 71 14 103/64 97 08/10/20 04:21 08/10/20 04:21 08/10/20 04:21 08/10/20 04:21 08/10/20 04:21 Period Temp Pulse Resp BP Sys/Soliz Pulse Ox Last 24 Hr 97.9 F-98.5 F 71-102 10-18 103-128/57-83 97-100 Intake and Output 08/09/20 08/10/20 08/10/20 21:59 05:59 13:59 Intake Total 545 1280 Balance 545 1280 Weight 152 lb 6.4 oz Intake & Output: Intake & Output 08/09/20 08/10/20 08/10/20 21:59 05:59 13:59 Intake Total 545 1280 Balance 545 1280 Weight 152 lb 6.4 oz Intake: IV 65 Oral 480 1280 Other: Urine Appearance Clear Urine Color Dark Yellow Urine Odor Strong # Voids 1 4 Head Head exam: Present atraumatic, normal inspection and normocephalic Eye Eye exam: Present EOMI Pupils: Present normal accommodation and PERRL ENT ENT exam: Present normal exam and normal oropharynx Neck Neck exam: Present full ROM and normal inspection; Absent lymphadenopathy Respiratory Respiratory exam: Present normal respiratory exam and CTAB Cardiovascular Cardiovascular exam: Present normal rate and rhythm, RRR, +S1 and +S2; Absent gallop GI/Abdominal GI/Abdominal exam: Present normal bowel sounds; Absent distended and tenderness Extremities Exam Extremities exam: Present tenderness (moderate tenderness of the forearm extending up to the antecubital space) and neurovascular intact Additional comments: minimal bleeding from operative site Neurological Exam Neurological exam: Present CN II-XII intact and oriented X3 Skin Skin exam: Present erythema A/P Assessment and plan (1) Abscess of left forearm: Status: Acute (2) Bacteremia due to Streptococcus: Status: Acute (3) Deep vein thrombosis (DVT) of left upper extremity: Status: Acute Qualifiers: Affected thrombotic vein of extremity: unspecified vein of extremity Chronicity: acute Qualified Code(s): I82.622 - Acute embolism and thrombosis of deep veins of left upper extremity (4) Heroin withdrawal: Status: Acute (5) IVDU (intravenous drug user): Status: Acute Comment: heroin Narrative A/P Narrative: continue present antibiotics and wound care Time Spent With Patient Time: Total time spent is greater than 50% in coordination of care (as documented) at patient's floor/unit and/or counseling patient:
--- NOTE | 2020-08-10 16:23 | Internal Med Progress Note ---
SUBJECTIVE Subjective Patient information: Note initiated : 08/10/20 at 4:19 pm Service Date, if different from initiated Date: [] Patient: Cash Dumont 30 y/o M admitted on 08/05/20 for IV drug use infection. Chief Complaint: [] Principal diagnosis: abscesses, cellulitis left arm Interval history: Presented the ED with body aches diarrhea headaches and fever with the left arm that is red painful and swollen. Last used IV heroin about 4- 5 days ago and felt he missed the vein. Also reports opiate withdrawal symptoms including diarrhea and abdominal achiness and urinary continence. Has had lightheadedness and dizziness. Reports hallucinations. He does use marijuana as well and occasionally uses methamphetamine. 08/06 No overnight event or new complaints. Electrolytes improving. Did get methadone for withdrawal at night. 08/07 States poor sleep. Sodium appropriate. Initially sodium showed rapid increase in the throughout the ED and so we attempted reversal but essentially stalled at and has been an appropriate elevation over 48 hours. Patient will get a I&D of his arm abscess today by Dr. Ceron. Persistent leukocytosis I suspect related to the abscess that has not been drained yet. Chemistry panel improving. 08/08 Patient had I&D of arm yesterday. No overnight event. Sodium appropriate. O ccasional headache but otherwise no new complaints. 08/09 Had blood oozing from wound so returned to OR for second look-likely cephalic vein bleed. Discontinued Lovenox SQ. 08/10 No bleeding issues, overall seems to be improving from the infectious perspective. Constitutional Vitals: Vital Signs Temp Pulse Resp BP Pulse Ox 98.5 F 71 14 103/64 97 08/10/20 04:21 08/10/20 04:21 08/10/20 04:21 08/10/20 04:21 08/10/20 04:21 Period Temp Pulse Resp BP Sys/Soliz Pulse Ox Last 24 Hr 97.9 F-98.5 F 71-92 14-18 103-114/58-68 97-97 Intake and Output 08/10/20 08/10/20 08/10/20 05:59 13:59 21:59 Intake Total 1280 Balance 1280 Intake & Output: Intake & Output 08/10/20 08/10/20 08/10/20 05:59 13:59 21:59 Intake Total 1280 Balance 1280 Intake: Oral 1280 Other: # Voids 4 Exam: General: Alert, Awake, No acute Distress Eyes/N/T: EOMI, Head/Neck: neck supple, CV: RRR, 2/6 SM (no vegetations on echo) Pulm: Clear b/l, no wheezing/rhonchi/rales Abd: soft, nontender, +BS x4 Ext: no clubbing/cyanosis/edema LE's, LUE elbow to wrist erythematous/edematous/tender to touch/indurated - Improved Neuro: Alert, no focal deficits, moves all extremities, Skin: warm/dry OBJ DATA Labs CBC & Chem 7: 08/09/20 04:50 08/09/20 04:50 Labs: Abnormal Lab Results 08/09/20 08/09/20 08/08/20 04:50 04:50 04:50 WBC 12.7 H RBC 3.26 L Hgb 9.2 L Hct 27.8 L MPV [place] # (Auto) 0.95 H Absolute Neutrophils 8.82 H Sodium 131 L Anion Gap 5.0 L Calcium 7.9 L 7.7 L Direct Bilirubin 0.3 H GGT 69 H AST 114 H 108 H ALT 99 H 75 H Alkaline Phosphatase 148 H 126 H Total Protein 5.7 L 5.5 L Albumin 2.3 L 2.5 L Albumin/Globulin Ratio 0.7 L 0.8 L Triglycerides 170 H 08/08/20 04:50 WBC 16.5 H RBC 3.23 L Hgb 9.1 L Hct 26.9 L MPV 11.2 H [place] # (Auto) 0.93 H Absolute Neutrophils 12.81 H Sodium Anion Gap Calcium Direct Bilirubin GGT AST ALT Alkaline Phosphatase Total Protein Albumin Albumin/Globulin Ratio Triglycerides Meds: Medications Acetaminophen (Tylenol) 650 mg PO Q6HP PRN PRN Reason: PAIN/FEVER > 101 Hydrocodone Bitart/Acetaminophen ([place] 10/325mg) 1 tab PO Q4HP PRN; Protocol PRN Reason: Per Pain Protocol Last Admin: 08/10/20 08:20 Dose: 1 tab Documented by: Albuterol/Ipratropium (Duoneb) 3 ml NEB Q4HP PRN PRN Reason: Shortness Of Breath Cefazolin Sodium (Ancef) 2 gm IV Q8H [facility] [place] Last Admin: 08/10/20 15:49 Dose: 2 gm Documented by: Clonidine HCl (Catapres) 0.1 mg PO Q4HP PRN PRN Reason: opioid withdrawal Docusate Sodium (Colace) 100 mg PO BID [facility] [place] Last Admin: 08/10/20 08:15 Dose: 100 mg Documented by: Hydromorphone HCl (Dilaudid) 1 mg IV Q2HP PRN; Protocol PRN Reason: Per Pain Protocol Last Admin: 08/10/20 15:49 Dose: 1 mg Documented by: Potassium Chloride 40 meq/ (Dextrose) 520 mls @ 130 mls/hr IV UD PRN PRN Reason: Potassium < 3 Magnesium Sulfate (Magnesium Sulfate) 2 gm in 50 mls @ 50 mls/hr IV UD PRN PRN Reason: Magnesium </= 1.6 Lactobacillus Rhamnosus (Culturelle) 1 cap PO BID [facility] [place] Last Admin: 08/10/20 08:15 Dose: 1 cap Documented by: Lactulose (Cephulac) 20 gm PO DAILYP PRN PRN Reason: Constipation Loperamide HCl (Imodium) 2 mg PO DAILYP PRN PRN Reason: Diarrhea Lorazepam (Ativan) 2 mg IV Q4HP PRN PRN Reason: Agitation Methadone HCl (Dolophine) 20 mg PO DAILYP PRN PRN Reason: opioid withdrawal Nicotine (Nicoderm) 21 mg TOPICAL DAILY@1000 [facility] [place] Last Admin: 08/10/20 10:44 Dose: 21 mg Documented by: Ondansetron HCl (Zofran) 4 mg IV Q4HP PRN PRN Reason: Nausea And Vomiting Potassium Chloride (Kdur) 40 meq PO UD PRN PRN Reason: Potssium is 3-3.5 Potassium Chloride (Kdur) 40 meq PO UD PRN PRN Reason: Potassium < 3 Promethazine HCl (Phenergan) 25 mg IV Q4-6HP PRN PRN Reason: Nausea And Vomiting Senna (Senokot) 2 tab PO DAILYP PRN PRN Reason: Constipation Sodium Chloride (Saline Flush) 10 ml IV Q8 [facility] [place] Last Admin: 08/10/20 04:32 Dose: 10 ml Documented by: A/P Narrative A/P Narrative: ASSESSMENT:30 year old male with a history of substance use disorder (opioid, methamphetamine) admitted for LUE abscess/cellulitis and bact eremia secondary to recent IV heroin injection. Blood cultures and surgical cultures grew group A streptococcus. The patient was treated with cefazolin and I&D of the abscess. The infection was complicated by LUE DVT which was treated with lovenox. Unfortunately the patient then developed a bleed at the I&D surgical site that required an emergent trip to the OR for exploration. The cause of the bleed was felt to be venous from the cephalic vein in the setting of anticoagulation. Lovenox was discontinued, the bleed stabilized with surgery following closely. #LUE abscess w/ cellulitis: s/p I&D and complicated by bleeding #Streptococcus pyogenes bacteremia #Probable blood culture contaminant w/ gram positive bacillus #Sepsis:resolved #LUE DVT #EMELINA: resolved #Hyponatremia: resolved #Hypokalemia: resolved #Substance use disorder-Heroin/Methamphetamine/Marijuana #Transaminitis-high risk for chronic hepatitis C infection #Tobacco use disorder P: -continue Cefazolin, if able to place will go to Rocephin daily. needs 2 weeks IV abx. -holding lovenox for bleeding from surgical incision -prn methadone/clonidine/imodium/promethazine for w/d symptoms, seem to be past symptoms -pending ECHO report -pending Hep C results -wound cares -f/u with Dr. Thakur outpt -Smoking cessation counseling -Dispo: hx of IVDU will complicate discharge planning, needs at least 2 weeks of abx from first negative blood culture. Time Spent With Patient Time: Total time spent is greater than 50% in coordination of care (as documente d) at patient's floor/unit and/or counseling patient: QUALITY VTE Deep Vein Thrombosis/Pulmonary Embolism Present on Admission: Yes
[2020-08-10] MEDS: HYDROmorphone 0.5 MG/0.5 ML SYRINGE IV PRN (21:07)
[2020-08-10] MEDS: oxyCODONE/APAP 10/325MG TABLET PO PRN (22:23)
[2020-08-11] MEDS: oxyCODONE/APAP 10/325MG TABLET PO PRN ×5 (03:44→20:38)
[2020-08-11] MEDS: HYDROmorphone 0.5 MG/0.5 ML SYRINGE IV PRN ×5 (03:53→21:40)
[2020-08-11] MEDS: ceFAZolin 1 GM VIAL IV SCH ×3 (06:13→21:41)
[2020-08-11] MEDS: 0.9 % SODIUM CHLORIDE 10 ML SYRINGE IV SCH ×3 (06:13→21:42)
[2020-08-11 06:37] LABS: Basophils % (Auto) 0.8 % (0.0-2.0); Eosinophils # (Auto) 0.27 K/mcL (0.00-0.70); Eosinophils % (Auto) 2.1 % (0.0-7.0); Hematocrit 28.4 % (41.0-55.0); Hemoglobin 8.6 g/dL (13.5-16.5); Lymphocytes # (Auto) 3.07 K/mcL (1.50-4.80); Lymphocytes % (Auto) 23.9 % (15.0-49.0); Mean Cell Volume 92.2 fL (80.0-100.0); Mean Corpuscular HGB Conc 30.3 g/dL (31.0-36.0); Mean Platelet Volume 8.9 fL (7.4-10.4); Monocytes # (Auto) 0.87 K/mcL (0.10-0.90); Monocytes % (Auto) 6.8 % (1.0-12.0); Neutrophils % (Auto) 66.4 % (38.0-78.0); Platelet Count 422 K/mcL (140-440); RBC 3.08 M/mcL (4.50-5.90); WBC 12.9 K/mcL (4.5-11.0)
[2020-08-11] MEDS: LACTOBACILLUS 1 CAPSULE PO SCH ×2 (09:08→20:38)
[2020-08-11] MEDS: DOCUSATE SODIUM 100 MG CAPSULE PO SCH ×2 (09:09→20:40)
[2020-08-11] MEDS: NICOTINE 21 MG PATCH TOPICAL SCH (10:20)
--- NOTE | 2020-08-11 13:22 | Internal Med Progress Note ---
SUBJECTIVE Subjective Patient information: Note initiated : 08/11/20 at 1:20 pm Service Date, if different from initiated Date: [] Patient: Cash Dumont 30 y/o M admitted on 08/05/20 for IV drug use infection. Chief Complaint: [] Principal diagnosis: abscesses, cellulitis left arm Interval history: Presented the ED with body aches diarrhea headaches and fever with the left arm that is red painful and swollen. Last used IV heroin about 4- 5 days ago and felt he missed the vein. Also reports opiate withdrawal symptoms including diarrhea and abdominal achiness and urinary continence. Has had lightheadedness and dizziness. Reports hallucinations. He does use marijuana as well and occasionally uses methamphetamine. 08/06 No overnight event or new complaints. Electrolytes improving. Did get methadone for withdrawal at night. 08/07 States poor sleep. Sodium appropriate. Initially sodium showed rapid increase in the throughout the ED and so we attempted reversal but essentially stalled at and has been an appropriate elevation over 48 hours. Patient will get a I&D of his arm abscess today by Dr. Ceron. Persistent leukocytosis I suspect related to the abscess that has not been drained yet. Chemistry panel improving. 08/08 Patient had I&D of arm yesterday. No overnight event. Sodium appropriate. O ccasional headache but otherwise no new complaints. 08/09 Had blood oozing from wound so returned to OR for second look-likely cephalic vein bleed. Discontinued Lovenox SQ. 08/10 No bleeding issues, overall seems to be improving from the infectious perspective. 08/11 Hemoglobin down trend but no evidence of active bleeding. Discussed gram positive bacillus blood culture result with microbiology lab-looks like non- group a strept, probably a skin contaminant. Constitutional Vitals: Vital Signs Temp Pulse Resp BP Pulse Ox 98.1 F 90 18 114/64 98 08/11/20 12:00 08/11/20 12:00 08/11/20 12:00 08/11/20 12:00 08/11/20 12:00 Period Temp Pulse Resp BP Sys/Soliz Pulse Ox Last 24 Hr 98.1 F-98.9 F 80-92 14-18 114-118/64-70 96-98 Intake and Output 08/10/20 08/11/20 08/11/20 21:59 05:59 13:59 Intake Total 480 800 Balance 480 800 Weight 69.4 kg Intake & Output: Intake & Output 08/10/20 08/11/20 08/11/20 21:59 05:59 13:59 Intake Total 480 800 Balance 480 800 Weight 69.4 kg Intake: Oral 480 800 Other: Meal Lunch Alejandro (2) Percent of Meal Consumed 0% 100% Feeding Ability Independent Stool Size Large Stool Color Brown Stool Consistency Normal for Patient # Voids 6 4 Exam: General: Alert, Awake, No acute Distress Eyes/N/T: EOMI, Head/Neck: neck supple, CV: RRR, 2/6 SM Pulm: Clear b/l, no wheezing/rhonchi/rales Abd: soft, nontender, +BS x4 Ext: no clubbing/cyanosis/edema LE's, LUE elbow to wrist erythemat ous/edematous/tender to touch/indurated - Improved Neuro: Alert, no focal deficits, moves all extremities, Skin: warm/dry OBJ DATA Labs CBC & Chem 7: 08/11/20 05:16 08/09/20 04:50 Labs: Abnormal Lab Results 08/11/20 08/09/20 08/09/20 05:16 04:50 04:50 WBC 12.9 H 12.7 H RBC 3.08 L 3.26 L Hgb 8.6 L 9.2 L Hct 28.4 L 27.8 L MCHC 30.3 L RDW 15.0 H MPV [place] # (Auto) 0.95 H Absolute Neutrophils 8.54 H 8.82 H Anion Gap 5.0 L Calcium 7.9 L GGT 69 H AST 114 H ALT 99 H Alkaline Phosphatase 148 H Total Protein 5.7 L Albumin 2.3 L Albumin/Globulin Ratio 0.7 L 08/08/20 04:50 WBC 16.5 H RBC 3.23 L Hgb 9.1 L Hct 26.9 L MCHC RDW MPV 11.2 H [place] # (Auto) 0.93 H Absolute Neutrophils 12.81 H Anion Gap Calcium GGT AST ALT Alkaline Phosphatase Total Protein Albumin Albumin/Globulin Ratio Meds: Medications Acetaminophen (Tylenol) 650 mg PO Q6HP PRN PRN Reason: PAIN/FEVER > 101 Albuterol/Ipratropium (Duoneb) 3 ml NEB Q4HP PRN PRN Reason: Shortness Of Breath Cefazolin Sodium (Ancef) 2 gm IV Q8H [facility] Last Admin: 08/11/20 06:13 Dose: 2 gm Documented by: Clonidine HCl (Catapres) 0.1 mg PO Q4HP PRN PRN Reason: opioid withdrawal Docusate Sodium (Colace) 100 mg PO BID [facility] Last Admin: 08/11/20 09:09 Dose: 100 mg Documented by: Hydromorphone HCl (Dilaudid) 0.5 mg IV Q4HP PRN; Protocol PRN Reason: Per Pain Protocol Last Admin: 08/11/20 12:03 Dose: 0.5 mg Documented by: Potassium Chloride 40 meq/ (Dextrose) 520 mls @ 130 mls/hr IV UD PRN PRN Reason: Potassium < 3 Magnesium Sulfate (Magnesium Sulfate) 2 gm in 50 mls @ 50 mls/hr IV UD PRN PRN Reason: Magnesium </= 1.6 Lactobacillus Rhamnosus (Culturelle) 1 cap PO BID [facility] Last Admin: 08/11/20 09:08 Dose: 1 cap Documented by: Lactulose (Cephulac) 20 gm PO DAILYP PRN PRN Reason: Constipation Loperamide HCl (Imodium) 2 mg PO DAILYP PRN PRN Reason: Diarrhea Methadone HCl (Dolophine) 20 mg PO DAILYP PRN PRN Reason: opioid withdrawal Nicotine (Nicoderm) 21 mg TOPICAL DAILY@1000 [facility] Last Admin: 08/11/20 10:20 Dose: 21 mg Documented by: Ondansetron HCl (Zofran) 4 mg IV Q4HP PRN PRN Reason: Nausea And Vomiting Oxycodone/Acetaminophen (Percocet 10-325mg) 1 tab PO Q4HP PRN; Protocol PRN Reason: Per Pain Protocol Last Admin: 08/11/20 12:02 Dose: 1 tab Documented by: Potassium Chloride (Kdur) 40 meq PO UD PRN PRN Reason: Potssium is 3-3.5 Potassium Chloride (Kdur) 40 meq PO UD PRN PRN Reason: Potassium < 3 Promethazine HCl (Phenergan) 25 mg IV Q4-6HP PRN PRN Reason: Nausea And Vomiting Senna (Senokot) 2 tab PO DAILYP PRN PRN Reason: Constipation Sodium Chloride (Saline Flush) 10 ml IV Q8 [facility] Last Admin: 08/11/20 06:13 Dose: 10 ml Documented by: A/P Narrative A/P Narrative: ASSESSMENT:30 year old male with a history of substance use disorder (opioid, methamphetamine) admitted for LUE abscess/cellulitis and bacteremia secondary to recent IV heroin injection. Blood cultures and surgical cultures grew group A streptococcus. The patient was treated with cefazolin and I&D of the abscess. The infection was complicated by LUE DVT which was treated with lovenox. Unfortunately the patient then developed a bleed at the I&D surgical site that required an emergent trip to the OR for exploration. The cause of the bleed was felt to be venous from the cephalic vein in the setting of anticoagulation. Lovenox was discontinued, the bleed stabilized with surgery following closely. Surveillance blood cultures grew 1/2 gram positive organisms-probably a skin contaminant. TTE ECHO did not identify any vegetations. #LUE abscess w/ cellulitis: s/p I&D and complicated by bleeding #Streptococcus pyogenes bacteremia-first negative blood culture 08/06/20 #Acute on chronic anemia-likely d/t recent blood loss #Probable blood culture contaminant w/ gram positive bacillus-final results pending #Sepsis:resolved #LUE DVT #EMELINA: resolved #Hyponatremia: resolved #Hypokalemia: resolved #Substance use disorder-Heroin/Methamphetamine/Marijuana #Transaminitis-probable hepatitis C infection #Tobacco use disorder P: -continue Cefazolin, if able to place will go to Rocephin daily, needs 2 weeks IV abx (through 08/19/20) -follow all pending blood cultures -follow hemoglobin, transfuse RBC for hgb<7 or symptomatic anemia -holding lovenox for bleeding from surgical incision -wean pain medications as tolerated -prn methadone/clonidine/imodium/promethazine for w/d symptoms, seem to be past symptoms -pending Hep C results -wound cares -f/u with Dr. Blaze torrespt -Smoking cessation counseling -Dispo: hx of IVDU will complicate discharge planning, needs at least 2 weeks of abx from first negative blood culture. Time Spent With Patient Time: Total time spent is greater than 50% in coordination of care (as documented) at patient's floor/unit and/or counseling patient: QUALITY VTE Deep Vein Thrombosis/Pulmonary Embolism Present on Admission: Yes
--- NOTE | 2020-08-11 14:09 | General Surgery Progress Note ---
SUBJECTIVE Subjective Patient information: Note initiated : 08/11/20 at 2:05 pm Service Date, if different from initiated Date: [] Patient: Cash Dumont 30 y/o M admitted on 08/05/20 for IV drug use infection. Chief Complaint: [] Principal diagnosis: abscesses, cellulitis left arm Interval history: patient is doing well. He is mentally alert and awake. The edema of his left upper extremity is significantly improved the cellulitis is also improved. Dressing change was carried out and the operative site is clean. White blood count 12.9, hemoglobin 8.6, hematocrit 28.4. Discussed his situation with his father and discuss possible inpatient detox and rehabilitation with the patient and his father. The patient states that he is willing to pursue inpatient rehabilitation. Constitutional Vitals: Vital Signs Temp Pulse Resp BP Pulse Ox 98.1 F 90 18 114/64 98 08/11/20 12:00 08/11/20 12:00 08/11/20 12:00 08/11/20 12:00 08/11/20 12:00 Period Temp Pulse Resp BP Sys/Soliz Pulse Ox Last 24 Hr 98.1 F-98.9 F 80-92 14-18 114-118/64-70 96-98 Intake and Output 08/11/20 08/11/20 08/11/20 05:59 13:59 21:59 Intake Total 800 Balance 800 Weight 153 lb Patient Weight 08/12/20 05:59 Weight 153 lb Intake & Output: Intake & Output 08/11/20 08/11/20 08/11/20 05:59 13:59 21:59 Intake Total 800 Balance 800 Weight 153 lb Intake: Oral 800 Other: Meal Sherbert (2) Percent of Meal Consumed 100% Feeding Ability Independent # Voids 4 Head Head exam: Present atraumatic, normal inspection and normocephalic Eye Eye exam: Present EOMI Pupils: Present normal accommodation and PERRL ENT ENT exam: Present normal exam and normal oropharynx Neck Neck exam: Present full ROM and normal inspection; Absent lymphadenopathy Respiratory Respiratory exam: Present normal respiratory exam and CTAB Cardiovascular Cardiovascular exam: Present normal rate and rhythm, RRR, +S1 and +S2; Absent gallop Extremities Exam Extremities exam: Present tenderness (moderate tenderness of the forearm extending up to the antecubital space) and neurovascular intact Additional comments: minimal bleeding from operative site Neurological Exam Neurological exam: Present CN II-XII intact and oriented X3 Psychiatric Psychiatric exam: Present anxious and flat affect Skin Skin exam: Present erythema A/P Assessment and plan (1) Abscess of left forearm: Status: Acute (2) Bacteremia due to Streptococcus: Status: Acute (3) Deep vein thrombosis (DVT) of left upper extremity: Status: Acute Qualifiers: Affected thrombotic vein of extremity: unspecified vein of extremity Chronicity: acute Qualified Code(s): I82.622 - Acute embolism and thrombosis of deep veins of left upper extremity (4) Heroin withdrawal: Status: Acute (5) IVDU (intravenous drug user): Status: Acute Comment: heroin Narrative A/P Narrative: patient will be continued on present IV therapy. We'll start to explore possibility of inpatient antibiotic therapy and inpatient drug rehabilitation Time Spent With Patient Time: Total time spent is greater than 50% in coordination of care (as documented) at patient's floor/unit and/or counseling patient:
[2020-08-11] MEDS ORDERED: POTASSIUM PHOSPHATE 40 MEQ in DEXTROSE 5% IN WATER 500 ML IV SCH (14:30)
[2020-08-12] MEDS: oxyCODONE/APAP 10/325MG TABLET PO PRN ×4 (04:12→23:09)
[2020-08-12] MEDS: 0.9 % SODIUM CHLORIDE 10 ML SYRINGE IV SCH ×3 (05:48→21:40)
[2020-08-12] MEDS: ceFAZolin 1 GM VIAL IV SCH ×3 (05:48→21:40)
[2020-08-12] MEDS ORDERED: HYDROmorphone 0.5 MG/0.5 ML SYRINGE IV PRN (06:00)
[2020-08-12 06:26] LABS: Basophils # (Auto) 0.09 K/mcL (0.00-0.20); Basophils % (Auto) 0.8 % (0.0-2.0); Eosinophils # (Auto) 0.23 K/mcL (0.00-0.70); Eosinophils % (Auto) 2.1 % (0.0-7.0); Hematocrit 27.8 % (41.0-55.0); Hemoglobin 8.8 g/dL (13.5-16.5); Lymphocytes # (Auto) 2.36 K/mcL (1.50-4.80); Lymphocytes % (Auto) 21.9 % (15.0-49.0); Mean Cell Volume 89.4 fL (80.0-100.0); Mean Corpuscular HGB Conc 31.7 g/dL (31.0-36.0); Mean Platelet Volume 8.9 fL (7.4-10.4); Monocytes # (Auto) 0.74 K/mcL (0.10-0.90); Monocytes % (Auto) 6.9 % (1.0-12.0); Neutrophils % (Auto) 68.3 % (38.0-78.0); Platelet Count 443 K/mcL (140-440); RBC 3.11 M/mcL (4.50-5.90); Red Cell Distribution Width 14.9 % (11.5-14.5); WBC 10.8 K/mcL (4.5-11.0)
[2020-08-12 07:08] LABS: ALT/SGPT 40 U/L (<40); AST/SGOT 31 U/L (<40); Albumin 2.8 gm/dL (3.2-5.2); Albumin/Globulin Ratio 0.8 (1.0-2.3); Alkaline Phosphatase 129 U/L (39-117); Bilirubin,Direct < 0.2 mg/dL (<0.3); Bilirubin,Total 0.3 mg/dL (0.1-1.0); Blood Urea Nitrogen 16 mg/dL (6-20); Calcium 8.8 mg/dL (8.6-10.4); Carbon Dioxide 26 mmol/L (22-30); Chloride 104 mmol/L (96-108); Globulin 3.5 gm/dL (2.2-3.7); Glomerular Filtration Rate 90; Glucose 96 mg/dL (70-105); Lactate Dehydrogenase 108 U/L (135-225); Phosphorous 3.9 mg/dL (2.5-4.5); Triglycerides 214 mg/dL (<150); Uric Acid 3.2 mg/dL (2.5-8.0)
[2020-08-12] MEDS: DOCUSATE SODIUM 100 MG CAPSULE PO SCH ×2 (08:16→21:07)
[2020-08-12] MEDS: LACTOBACILLUS 1 CAPSULE PO SCH ×2 (08:16→21:06)
--- NOTE | 2020-08-12 08:46 | Operative Note ---
DATE OF OPERATION: 08/07/2020 PREOPERATIVE DIAGNOSES: Abscess of left forearm with sepsis. POSTOPERATIVE DIAGNOSES: Abscess of left forearm with sepsis. PROCEDURE: Incision and drainage of left forearm abscess with debridement of infected veins and fascia. SURGEON: Tara Ceron M.D. FINDINGS: Abscess in antecubital space with gross purulence noted in veins and early fascial necrosis. DESCRIPTION OF PROCEDURE: Under general anesthesia, a tourniquet was placed over the left forearm. The forearm was then prepped and draped. The acutely inflamed area was inspected and a transverse incision was made distal to the antecubital space over the bulging abscess. A moderate amount of pus was obtained. Culture was sent for sensitivity. Irrigation was carried out. Finger dissection was carried out to break up any loculated pus. There were two superficial veins encountered, which were bulging. They were opened and gross purulence exuded from the veins. A segment was excised and controlled with 2-0 Vicryl ties. The tendons at the antecubital space showed early necrosis but was still intact. Curetting of the necrotic area was carried out, but it was elected not to try to dissect too much of the tendon. Irrigation was carried out once more. Hemostasis was achieved. Abscess cavity was packed with Aquacel AG gauze. A compression dressing was applied using Kerlix gauze. The patient tolerated the procedure well. He was awakened and transferred to the postanesthetic care unit in stable, satisfactory condition. LCS:maged Job ID: [id number] Doc ID: [id number] Tara Ceron M.D.
[2020-08-12] MEDS: NICOTINE 21 MG PATCH TOPICAL SCH (10:33)
[2020-08-12] MEDS: METHADONE 5 MG TABLET PO PRN (10:33)
--- NOTE | 2020-08-12 13:04 | General Surgery Progress Note ---
SUBJECTIVE Subjective Patient information: Note initiated : 08/12/20 at 12:59 pm Service Date, if different from initiated Date: [] Patient: Cash Dumont 30 y/o M admitted on 08/05/20 for IV drug use infection. Chief Complaint: [] Principal diagnosis: abscesses, cellulitis left arm Interval history: Patient is significantly improved. He is mentally alert and aware. He's had return of appetite and is eating regularly. He has less discomfort in his left arm. He has been afebrile. White blood count 10.8, hemoglobin 8.8, hematocrit 27.8, BUN 16, creatinine 1.1 Constitutional Vitals: Vital Signs Temp Pulse Resp BP Pulse Ox 98.7 F 91 H 18 120/77 97 08/12/20 08:00 08/12/20 08:00 08/12/20 08:00 08/12/20 08:00 08/12/20 08:00 Period Temp Pulse Resp BP Sys/Soliz Pulse Ox Last 24 Hr 98.2 F-98.8 F 89-100 16-18 110-123/63-77 97-99 Intake and Output 08/11/20 08/12/20 08/12/20 21:59 05:59 13:59 Intake Total 1730 740 650 Output Total 200 Balance 1530 740 650 Weight 160 lb Intake & Output: Intake & Output 08/11/20 08/12/20 08/12/20 21:59 05:59 13:59 Intake Total 1730 740 650 Output Total 200 Balance 1530 740 650 Weight 160 lb Intake: Oral 1730 740 650 Output: Void Amount 200 Other: Meal sherbet (2) Tuna sandwich Percent of Meal Consumed 100% 100% Feeding Ability Independent Independent Urine Color Light Zaria Urine Odor Strong Stool Size Moderate Moderate Stool Color Brown Stool Consistency Normal for Patient Soft # Voids 2 1 # Bowel Movements 1 1 Head Head exam: Present atraumatic, normal inspection and normocephalic Eye Eye exam: Present EOMI Pupils: Present normal accommodation and PERRL ENT ENT exam: Present normal exam and normal oropharynx Neck Neck exam: Present full ROM and normal inspection; Absent lymphadenopathy Respiratory Respiratory exam: Present normal respiratory exam and CTAB Cardiovascular Cardiovascular exam: Present normal rate and rhythm, RRR, +S1 and +S2; Absent gallop GI/Abdominal GI/Abdominal exam: Present normal bowel sounds; Absent distended and tenderness Extremities Exam Extremities exam: Present tenderness (moderate tenderness of the forearm extending up to the antecubital space) and neurovascular intact Additional comments: minimal bleeding from operative site;tender Venous cord over the cephalic vein extending into the axilla; much better extension at the elbow without discomfort. Neurological Exam Neurological exam: Present CN II-XII intact and oriented X3 Psychiatric Psychiatric exam: Present anxious and flat affect Skin Skin exam: Present erythema A/P Assessment and plan (1) Abscess of left forearm: Status: Acute (2) Deep vein thrombosis (DVT) of left upper extremity: Status: Acute Qualifiers: Affected thrombotic vein of extremity: unspecified vein of extremity Chronicity: acute Qualified Code(s): I82.622 - Acute embolism and thrombosis of deep veins of left upper extremity (3) Heroin withdrawal: Status: Acute (4) IVDU (intravenous drug user): Status: Acute Comment: heroin Narrative A/P Narrative: patient will be continued on present therapy. I will make an attempt to try to get ORBACTIV injection with plans to discharge him home if unable to get inpatient rehabilitation. Time Spent With Patient Time: Total time spent is greater than 50% in coordination of care (as documented) at patient's floor/unit and/or counseling patient:
--- NOTE | 2020-08-12 17:09 | Internal Med Progress Note ---
SUBJECTIVE Subjective Patient information: Note initiated : 08/12/20 at 4:54 pm Service Date, if different from initiated Date: [] Patient: Cash Dumont 30 y/o M admitted on 08/05/20 for IV drug use infection. Chief Complaint: [] Principal diagnosis: abscesses, cellulitis left arm Interval history: Presented the ED with body aches diarrhea headaches and fever with the left arm that is red painful and swollen. Last used IV heroin about 4- 5 days ago and felt he missed the vein. Also reports opiate withdrawal symptoms including diarrhea and abdominal achiness and urinary continence. Has had lightheadedness and dizziness. Reports hallucinations. He does use marijuana as well and occasionally uses methamphetamine. 08/06 No overnight event or new complaints. Electrolytes improving. Did get methadone for withdrawal at night. 08/07 States poor sleep. Sodium appropriate. Initially sodium showed rapid increase in the throughout the ED and so we attempted reversal but essentially stalled at and has been an appropriate elevation over 48 hours. Patient will get a I&D of his arm abscess today by Dr. Ceron. Persistent leukocytosis I suspect related to the abscess that has not been drained yet. Chemistry panel improving. 08/08 Patient had I&D of arm yesterday. No overnight event. Sodium appropriate. O ccasional headache but otherwise no new complaints. 08/09 Had blood oozing from wound so returned to OR for second look-likely cephalic vein bleed. Discontinued Lovenox SQ. 08/10 No bleeding issues, overall seems to be improving from the infectious perspective. 08/11 Hemoglobin down trend but no evidence of active bleeding. Discussed gram positive bacillus blood culture result with microbiology lab-probably a contaminant. 08/12 Positive Hepatitis C RNA, will need referral to GI after discharge to discuss treatment for hepatitis C infection. Ongoing discharge planning. Constitutional Vitals: Vital Signs Temp Pulse Resp BP Pulse Ox 98.6 F 92 H 18 111/70 96 08/12/20 12:00 08/12/20 12:00 08/12/20 12:00 08/12/20 12:08/12/20 12:00 Period Temp Pulse Resp BP Sys/Soliz Pulse Ox Last 24 Hr 98.5 F-98.8 F 89-100 16-18 110-123/63-77 96-97 Intake and Output 08/12/20 08/12/20 08/12/20 05:59 13:59 21:59 Intake Total 740 650 300 Balance 740 650 300 Intake & Output: Intake & Output 08/12/20 08/12/20 08/12/20 05:59 13:59 21:59 Intake Total 740 650 300 Balance 740 650 300 Intake: Oral 740 650 300 Other: Meal Tuna sandwich Nourishment/Supplement Percent of Meal Consumed 100% Feeding Ability Independent Independent Urine Appearance Clear Urine Color Light Zaria Urine Odor Strong Stool Size Moderate Moderate Stool Color Brown Stool Consistency Soft Soft # Voids 1 # Bowel Movements 1 # Emeses 0 Additional findings Additional findings: Head: Atraumatic, normal inspection. Eyes: normal appearance, no scleral icterus. Neck: full ROM Respiratory: no respiratory distress. Cardiovascular: normal rate and rhythm, S1, S2. GI/Abdominal: soft, nontender, no guarding. Extremities: open sugical incision at antecubital fossa does not appear infected, no bleeding Neurological: CN II-XII intact, intact motor, intact sensation. Psychiatric: normal mood. Skin: warm, normal color OBJ DATA Labs CBC & Chem 7: 08/12/20 05:13 08/12/20 05:13 Labs: Abnormal Lab Results 08/12/20 08/12/20 08/11/20 05:13 05:13 05:16 WBC 12.9 H RBC 3.11 L 3.08 L Hgb 8.8 L 8.6 L Hct 27.8 L 28.4 L MCHC 30.3 L RDW 14.9 H 15.0 H Plt Count 443 H Absolute Neutrophils 8.54 H Anion Gap 7.0 L GGT 64 H ALT 40 H Alkaline Phosphatase 129 H Lactate Dehydrogenase 108 L Albumin 2.8 L Albumin/Globulin Ratio 0.8 L Triglycerides 214 H Meds: Medications Acetaminophen (Tylenol) 650 mg PO Q6HP PRN PRN Reason: PAIN/FEVER > 101 Albuterol/Ipratropium (Duoneb) 3 ml NEB Q4HP PRN PRN Reason: Shortness Of Breath Cefazolin Sodium (Ancef) 2 gm IV Q8H [facility] Last Admin: 08/12/20 16:00 Dose: 2 gm Documented by: Clonidine HCl (Catapres) 0.1 mg PO Q4HP PRN PRN Reason: opioid withdrawal Docusate Sodium (Colace) 100 mg PO BID [facility] Last Admin: 08/12/20 08:16 Dose: 100 mg Documented by: Hydromorphone HCl (Dilaudid) 0.2 mg IV Q6HP PRN; Protocol PRN Reason: Per Pain Protocol Last Admin: 08/12/20 08:17 Dose: 0.2 mg Documented by: Potassium Chloride 40 meq/ (Dextrose) 520 mls @ 130 mls/hr IV UD PRN PRN Reason: Potassium < 3 Magnesium Sulfate (Magnesium Sulfate) 2 gm in 50 mls @ 50 mls/hr IV UD PRN PRN Reason: Magnesium </= 1.6 Lactobacillus Rhamnosus (Culturelle) 1 cap PO BID [facility] Last Admin: 08/12/20 08:16 Dose: 1 cap Documented by: Lactulose (Cephulac) 20 gm PO DAILYP PRN PRN Reason: Constipation Loperamide HCl (Imodium) 2 mg PO DAILYP PRN PRN Reason: Diarrhea Methadone HCl (Dolophine) 20 mg PO DAILYP PRN PRN Reason: opioid withdrawal Last Admin: 08/12/20 10:33 Dose: 20 mg Documented by: Nicotine (Nicoderm) 21 mg TOPICAL DAILY@1000 [facility] Last Admin: 08/12/20 10:33 Dose: 21 mg Documented by: Non-Formulary Medication (Orbactiv) 1,200 mg IV ONCE ONE Stop: 08/16/20 09:01 Ondansetron HCl (Zofran) 4 mg IV Q4HP PRN PRN Reason: Nausea And Vomiting Oxycodone/Acetaminophen (Percocet 10-325mg) 1 tab PO Q4HP PRN; Protocol PRN Reason: Per Pain Protocol Last Admin: 08/12/20 16:00 Dose: 1 tab Documented by: Potassium Chloride (Kdur) 40 meq PO UD PRN PRN Reason: Potssium is 3-3.5 Potassium Chloride (Kdur) 40 meq PO UD PRN PRN Reason: Potassium < 3 Promethazine HCl (Phenergan) 25 mg IV Q4-6HP PRN PRN Reason: Nausea And Vomiting Senna (Senokot) 2 tab PO DAILYP PRN PRN Reason: Constipation Sodium Chloride (Saline Flush) 10 ml IV Q8 [facility] Last Admin: 08/12/20 16:01 Dose: 10 ml Documented by: A/P Narrative A/P Narrative: ASSESSMENT:30 year old male with a history of substance use disorder (opioid, methamphetamine) admitted for LUE abscess/cellulitis and bacteremia secondary to recent IV heroin injection. Blood cultures and surgical cultures grew group A streptococcus. The patient was treated with cefazolin and I&D of the abscess. The infection was complicated by LUE DVT which was treated with lovenox. Unfortunately the patient then developed a bleed at the I&D surgical site that required an emergent trip to the OR for exploration. The cause of the bleed was felt to be venous bleeding in the setting of anticoagulation. Lovenox was discontinued, the bleed stabilized with surgery following closely. Surveillance blood cultures grew 1/2 gram positive bacillus-probably a contaminant. TTE ECHO did not identify any vegetations. #LUE abscess w/ cellulitis: s/p I&D #Streptococcus pyogenes bacteremia secondary to IVDU-on 2 weeks of cefazolin (through 08/19/20) #Acute on chronic anemia-likely d/t recent blood loss (stable) #Probable 1/2 blood culture contaminant-gram positive bacillus- (final ID pending) #Sepsis:resolved #LUE DVT-off anticoagulation d/t bleed #EMELINA: resolved #Hyponatremia: resolved #Hypokalemia: resolved #Substance use disorder-Heroin/Methamphetamine/Marijuana #Hepatitis C infection #Tobacco use disorder P: -continue Cefazolin, if able to place will go to Rocephin daily, needs 2 weeks IV abx (through 08/19/20) -follow all pending blood cultures -follow hemoglobin, transfuse RBC for hgb<7 or symptomatic anemia -surveillance labs: CBC, chemistry panel -holding lovenox for bleeding from surgical incision-could consider resuming with close monitoring for bleed if ok with surgery -wean pain medications as tolerated-likely discontinue dilaudid IV tomorrow -prn methadone/clonidine/imodium/promethazine for withdrawal symptoms -HIV screen -wound care consulted-follow up in wound care clinic -GI referral at discharge for hepatitis C infection management -f/u with Dr. Thakur outpatient -Dispo: hx of IVDU will complicate discharge planning, needs at least 2 weeks of abx from first negative blood culture. Time Spent With Patient Time: Total time spent is greater than 50% in coordination of care (as documented) at patient's floor/unit and/or counseling patient: QUALITY VTE Deep Vein Thrombosis/Pulmonary Embolism Present on Admission: Yes
[2020-08-13] MEDS: ceFAZolin 1 GM VIAL IV SCH ×3 (06:19→20:56)
[2020-08-13] MEDS: 0.9 % SODIUM CHLORIDE 10 ML SYRINGE IV SCH ×3 (06:23→20:56)
[2020-08-13] MEDS: oxyCODONE/APAP 10/325MG TABLET PO PRN ×3 (06:45→20:55)
[2020-08-13 06:51] LABS: Eosinophils # (Auto) 0.21 K/mcL (0.00-0.70); Eosinophils % (Auto) 2.1 % (0.0-7.0); Hematocrit 28.6 % (41.0-55.0); Hemoglobin 8.8 g/dL (13.5-16.5); Lymphocytes # (Auto) 1.99 K/mcL (1.50-4.80); Lymphocytes % (Auto) 20.3 % (15.0-49.0); Mean Corpuscular HGB Conc 30.8 g/dL (31.0-36.0); Mean Platelet Volume 8.8 fL (7.4-10.4); Monocytes # (Auto) 0.67 K/mcL (0.10-0.90); Monocytes % (Auto) 6.8 % (1.0-12.0); Neutrophils % (Auto) 69.8 % (38.0-78.0); Platelet Count 408 K/mcL (140-440); RBC 3.11 M/mcL (4.50-5.90); WBC 9.8 K/mcL (4.5-11.0)
[2020-08-13 07:21] LABS: ALT/SGPT 34 U/L (<40); AST/SGOT 29 U/L (<40); Albumin/Globulin Ratio 0.9 (1.0-2.3); Alkaline Phosphatase 139 U/L (39-117); Bilirubin,Direct < 0.2 mg/dL (<0.3); Bilirubin,Total 0.2 mg/dL (0.1-1.0); Blood Urea Nitrogen 15 mg/dL (6-20); Calcium 8.9 mg/dL (8.6-10.4); Carbon Dioxide 28 mmol/L (22-30); Chloride 102 mmol/L (96-108); Globulin 3.4 gm/dL (2.2-3.7); Glomerular Filtration Rate 115; Glucose 88 mg/dL (70-105); Lactate Dehydrogenase 112 U/L (135-225); Phosphorous 4.5 mg/dL (2.5-4.5); Triglycerides 211 mg/dL (<150); Uric Acid 3.3 mg/dL (2.5-8.0)
[2020-08-13] MEDS: METHADONE 5 MG TABLET PO PRN (10:51)
[2020-08-13] MEDS: NICOTINE 21 MG PATCH TOPICAL SCH (10:51)
[2020-08-13] MEDS: LACTOBACILLUS 1 CAPSULE PO SCH ×2 (10:52→20:56)
[2020-08-13] MEDS: DOCUSATE SODIUM 100 MG CAPSULE PO SCH ×2 (10:52→20:56)
--- NOTE | 2020-08-13 10:57 | Internal Med Progress Note ---
SUBJECTIVE Subjective Patient information: Note initiated : 08/13/20 at 10:53 am Service Date, if different from initiated Date: [] Patient: Cash Dumont 30 y/o M admitted on 08/05/20 for IV drug use infection. Chief Complaint: [] Principal diagnosis: abscesses, cellulitis left arm Interval history: Presented the ED with body aches diarrhea headaches and fever with the left arm that is red painful and swollen. Last used IV heroin about 4- 5 days ago and felt he missed the vein. Also reports opiate withdrawal symptoms including diarrhea and abdominal achiness and urinary continence. Has had lightheadedness and dizziness. Reports hallucinations. He does use marijuana as well and occasionally uses methamphetamine. 08/06 No overnight event or new complaints. Electrolytes improving. Did get methadone for withdrawal at night. 08/07 States poor sleep. Sodium appropriate. Initially sodium showed rapid increase in the throughout the ED and so we attempted reversal but essentially stalled at and has been an appropriate elevation over 48 hours. Patient will get a I&D of his arm abscess today by Dr. Ceron. Persistent leukocytosis I suspect related to the abscess that has not been drained yet. Chemistry panel improving. 08/08 Patient had I&D of arm yesterday. No overnight event. Sodium appropriate. Occasional headache but otherwise no new complaints. 08/09 Had blood oozing from wound so returned to OR for second look-likely cephalic vein bleed. Discontinued Lovenox SQ. 08/10 No bleeding issues, overall seems to be improving from the infectious perspective. 08/11 Hemoglobin down trend but no evidence of active bleeding. Discussed gram positive bacillus blood culture result with microbiology lab-probably a contaminant. 08/12 Positive Hepatitis C RNA, will need referral to GI after discharge to discuss treatment for hepatitis C infection. Ongoing discharge planning. 08/13 Feels well, ongoing discharge planning. Constitutional Vitals: Vital Signs Temp Pulse Resp BP Pulse Ox 98.1 F 86 18 114/70 96 08/13/20 07:53 08/13/20 08:00 08/13/20 08:00 08/13/20 07:53 08/13/20 08:00 Period Temp Pulse Resp BP Sys/Soliz Pulse Ox Last 24 Hr 97.6 F-99.2 F 86-103 18-20 111-118/68-72 96-97 Intake and Output 0108/13/20 08/13/20 21:59 05:59 13:59 Intake Total 300 240 480 Balance 300 240 480 Weight 73.709 kg Intake & Output: Intake & Output 08/12/20 08/13/20 08/13/20 21:59 05:59 13:59 Intake Total 300 240 480 Balance 300 240 480 Weight 73.709 kg Intake: Oral 300 240 480 Other: Meal Nourishment/Supplement Breakfast Percent of Meal Consumed 100% Feeding Ability Independent Independent Urine Appearance Clear # Voids 1 3 Exam: General: Alert, Awake, No acute Distress Eyes/N/T: EOMI, Head/Neck: neck supple, CV: RRR, 2/6 SM Pulm: Clear b/l, no wheezing/rhonchi/rales Abd: soft, nontender, +BS x4 Ext: no clubbing/cyanosis/edema LE's, LUE elbow to wrist erythematous/edematous/tender to touch/indurated - Improved Neuro: Alert, no focal deficits, moves all extremities, Skin: warm/dry OBJ DATA Labs CBC & Chem 7: 08/13/20 04:47 08/13/20 04:47 Labs: Abnormal Lab Results 08/13/20 08/13/20 08/13/20 04:47 04:47 04:47 WBC RBC 3.11 L Hgb 8.8 L Hct 28.6 L MCHC 30.8 L RDW 15.0 H Plt Count Absolute Neutrophils Anion Gap GGT 65 H ALT Alkaline Phosphatase 139 H Lactate Dehydrogenase 112 L Albumin 3.0 L Albumin/Globulin Ratio 0.9 L Triglycerides 211 H Hep Bs Antibody Positive A 08/12/20 08/12/20 08/11/20 05:13 05:13 05:16 WBC 12.9 H RBC 3.11 L 3.08 L Hgb 8.8 L 8.6 L Hct 27.8 L 28.4 L MCHC 30.3 L RDW 14.9 H 15.0 H Plt Count 443 H Absolute Neutrophils 8.54 H Anion Gap 7.0 L GGT 64 H ALT 40 H Alkaline Phosphatase 129 H Lactate Dehydrogenase 108 L Albumin 2.8 L Albumin/Globulin Ratio 0.8 L Triglycerides 214 H Hep Bs Antibody Meds: Medications Acetaminophen (Tylenol) 650 mg PO Q6HP PRN PRN Reason: PAIN/FEVER > 101 Albuterol/Ipratropium (Duoneb) 3 ml NEB Q4HP PRN PRN Reason: Shortness Of Breath Cefazolin Sodium (Ancef) 2 gm IV Q8H [facility] Last Admin: 08/13/20 06:19 Dose: 2 gm Documented by: Clonidine HCl (Catapres) 0.1 mg PO Q4HP PRN PRN Reason: opioid withdrawal Docusate Sodium (Colace) 100 mg PO BID [facility] Last Admin: 08/13/20 10:52 Dose: 100 mg Documented by: Potassium Chloride 40 meq/ (Dextrose) 520 mls @ 130 mls/hr IV UD PRN PRN Reason: Potassium < 3 Magnesium Sulfate (Magnesium Sulfate) 2 gm in 50 mls @ 50 mls/hr IV UD PRN PRN Reason: Magnesium </= 1.6 Lactobacillus Rhamnosus (Culturelle) 1 cap PO BID [facility] Last Admin: 08/13/20 10:52 Dose: 1 cap Documented by: Lactulose (Cephulac) 20 gm PO DAILYP PRN PRN Reason: Constipation Loperamide HCl (Imodium) 2 mg PO DAILYP PRN PRN Reason: Diarrhea Methadone HCl (Dolophine) 20 mg PO DAILYP PRN PRN Reason: opioid withdrawal Last Admin: 08/13/20 10:51 Dose: 20 mg Documented by: Nicotine (Nicoderm) 21 mg TOPICAL DAILY@1000 [facility] Last Admin: 08/13/20 10:51 Dose: 21 mg Documented by: Ondansetron HCl (Zofran) 4 mg IV Q4HP PRN PRN Reason: Nausea And Vomiting Oxycodone/Acetaminophen (Percocet 10-325mg) 1 tab PO Q4HP PRN; Protocol PRN Reason: Per Pain Protocol Last Admin: 08/13/20 06:45 Dose: 1 tab Documented by: Potassium Chloride (Kdur) 40 meq PO UD PRN PRN Reason: Potssium is 3-3.5 Potassium Chloride (Kdur) 40 meq PO UD PRN PRN Reason: Potassium < 3 Promethazine HCl (Phenergan) 25 mg IV Q4-6HP PRN PRN Reason: Nausea And Vomiting Senna (Senokot) 2 tab PO DAILYP PRN PRN Reason: Constipation Sodium Chloride (Saline Flush) 10 ml IV Q8 [facility] Last Admin: 08/13/20 06:23 Dose: 10 ml Documented by: A/P Assessment and plan (1) Abscess of left forearm: Status: Acute (2) Deep vein thrombosis (DVT) of left upper extremity: Status: Acute Qualifiers: Affected thrombotic vein of extremity: unspecified vein of extremity Chronicity: acute Qualified Code(s): I82.622 - Acute embolism and thrombosis of deep veins of left upper extremity (3) Heroin withdrawal: Status: Acute (4) IVDU (intravenous drug user): Status: Acute Comment: heroin Narrative A/P Narrative: ASSESSMENT:30 year old male with a history of substance use disorder (opioid, methamphetamine) admitted for LUE abscess/cellulitis and bacteremia secondary to recent IV heroin injection. Blood cultures and surgical cultures grew group A streptococcus. The patient was treated with cefazolin and I&D of the abscess. The infection was complicated by LUE DVT which was treated with lovenox. Unfortunately the patient then developed a bleed at the I&D surgical site that required an emergent trip to the OR for exploration. The cause of the bleed was felt to be venous bleeding in the setting of anticoagulation. Lovenox was discontinued, the bleed stabilized with surgery following closely. Surveillance blood cultures grew 1/2 gram positive bacillus-probably a contaminant. TTE ECHO did not identify any vegetations. Pain medications were weaned-dilaudid weaned off. The patient is considering rehab when discharged but there is a waiting list. Discharge is complicated by treatment of bacteremia with IV antibiotics and lack of safe outpatient IV antibiotic options in the setting of IVDU history. #LUE abscess w/ cellulitis: s/p I&D #Streptococcus pyogenes bacteremia secondary to IVDU-on 2 weeks of cefazolin #Acute on chronic anemia-likely d/t recent blood loss (stable) #Probable 1/2 blood culture contaminant-gram positive bacillus- (final ID pending) #Sepsis:resolved #LUE DVT-off anticoagulation d/t recent surgical site bleed #EMELINA: resolved #Hyponatremia: resolved #Hypokalemia: resolved #Substance use disorder-Heroin/Methamphetamine/Marijuana #Hepatitis C infection #Tobacco use disorder P: -continue Cefazolin, if able to place will go to Rocephin daily, needs 2 weeks IV abx (through 08/19/20) -follow all pending blood cultures -follow hemoglobin, transfuse RBC for hgb<7 or symptomatic anemia -surveillance labs: CBC, chemistry panel -holding lovenox for bleeding from surgical incision-could consider resuming with close monitoring for bleed if ok with surgery -wean pain medications as tolerated-likely discontinue dilaudid IV tomorrow -prn methadone/clonidine/imodium/promethazine for withdrawal symptoms -Infectious disease consult if able to discuss outpatient treatment options in the setting of IVDU -wound care consulted-follow up in wound care clinic -GI referral at discharge for hepatitis C infection management -f/u with Dr. Thakur outpatient -Dispo: hx of IVDU will complicate discharge planning, needs at least 2 weeks of abx from first negative blood culture. Time Spent With Patient Time: Total time spent is greater than 50% in coordination of care (as documented) at patient's floor/unit and/or counseling patient: QUALITY VTE Deep Vein Thrombosis/Pulmonary Embolism Present on Admission: Yes
--- NOTE | 2020-08-13 13:49 | Internal Med Progress Note ---
SUBJECTIVE Subjective Patient information: Note initiated : 08/13/20 at 1:45 pm Service Date, if different from initiated Date: [] Patient: Cash Dumont 30 y/o M admitted on 08/05/20 for IV drug use infection. Chief Complaint: [] Principal diagnosis: abscesses, cellulitis left arm Interval history: Presented the ED with body aches diarrhea headaches and fever with the left arm that is red painful and swollen. Last used IV heroin about 4- 5 days ago and felt he missed the vein. Also reports opiate withdrawal symptoms including diarrhea and abdominal achiness and urinary continence. Has had lightheadedness and dizziness. Reports hallucinations. He does use marijuana as well and occasionally uses methamphetamine. 08/06 No overnight event or new complaints. Electrolytes improving. Did get methadone for withdrawal at night. 08/07 States poor sleep. Sodium appropriate. Initially sodium showed rapid increase in the throughout the ED and so we attempted reversal but essentially stalled at and has been an appropriate elevation over 48 hours. Patient will get a I&D of his arm abscess today by Dr. Ceron. Persistent leukocytosis I suspect related to the abscess that has not been drained yet. Chemistry panel improving. 08/08 Patient had I&D of arm yesterday. No overnight event. Sodium appropriate. O ccasional headache but otherwise no new complaints. 08/09 Had blood oozing from wound so returned to OR for second look-likely cephalic vein bleed. Discontinued Lovenox SQ. 08/10 No bleeding issues, overall seems to be improving from the infectious perspective. 08/11 Hemoglobin down trend but no evidence of active bleeding. Discussed gram positive bacillus blood culture result with microbiology lab-probably a contaminant. 08/12 Positive Hepatitis C RNA, will need referral to GI after discharge to discuss treatment for hepatitis C infection. Ongoing discharge planning. 08/13 Feels well, ongoing discharge planning. Constitutional Vitals: Vital Signs Temp Pulse Resp BP Pulse Ox 97.9 F 82 18 119/77 98 08/13/20 12:00 08/13/20 12:00 08/13/20 12:00 08/13/20 12:08/13/20 12:00 Period Temp Pulse Resp BP Sys/Soliz Pulse Ox Last 24 Hr 97.6 F-99.2 F 82-103 18-20 114-119/68-77 96-98 Intake and Output 08/12/20 08/13/20 08/13/20 21:59 05:59 13:59 Intake Total 300 240 480 Balance 300 240 480 Weight 73.709 kg Intake & Output: Intake & Output 08/12/20 08/13/20 08/13/20 21:59 05:59 13:59 Intake Total 300 240 480 Balance 300 240 480 Weight 73.709 kg Intake: Oral 300 240 480 Other: Meal Nourishment/Supplement Breakfast Percent of Meal Consumed 100% Feeding Ability Independent Independent Urine Appearance Clear # Voids 1 3 Exam: General: Alert, Awake, No acute Distress Eyes/N/T: EOMI, Head/Neck: neck supple, CV: RRR, 2/6 SM Pulm: Clear b/l, no wheezing/rhonchi/rales Abd: soft, nontender, +BS x4 Ext: no clubbing/cyanosis/edema LE's, LUE elbow to wrist erythematous/edematous/tender to touch/indurated - Improved Neuro: Alert, no focal deficits, moves all extremities, Skin: warm/dry OBJ DATA Labs CBC & Chem 7: 08/13/20 04:47 08/13/20 04:47 Labs: Abnormal Lab Results 08/13/20 08/13/20 08/13/20 04:47 04:47 04:47 WBC RBC 3.11 L Hgb 8.8 L Hct 28.6 L MCHC 30.8 L RDW 15.0 H Plt Count Absolute Neutrophils Anion Gap GGT 65 H ALT Alkaline Phosphatase 139 H Lactate Dehydrogenase 112 L Albumin 3.0 L Albumin/Globulin Ratio 0.9 L Triglycerides 211 H Hep Bs Antibody Positive A 08/12/20 08/12/20 08/11/20 05:13 05:13 05:16 WBC 12.9 H RBC 3.11 L 3.08 L Hgb 8.8 L 8.6 L Hct 27.8 L 28.4 L MCHC 30.3 L RDW 14.9 H 15.0 H Plt Count 443 H Absolute Neutrophils 8.54 H Anion Gap 7.0 L GGT 64 H ALT 40 H Alkaline Phosphatase 129 H Lactate Dehydrogenase 108 L Albumin 2.8 L Albumin/Globulin Ratio 0.8 L Triglycerides 214 H Hep Bs Antibody Meds: Medications Acetaminophen (Tylenol) 650 mg PO Q6HP PRN PRN Reason: PAIN/FEVER > 101 Albuterol/Ipratropium (Duoneb) 3 ml NEB Q4HP PRN PRN Reason: Shortness Of Breath Cefazolin Sodium (Ancef) 2 gm IV Q8H [facility] Last Admin: 08/13/20 06:19 Dose: 2 gm Documented by: Clonidine HCl (Catapres) 0.1 mg PO Q4HP PRN PRN Reason: opioid withdrawal Docusate Sodium (Colace) 100 mg PO BID [facility] Last Admin: 08/13/20 10:52 Dose: 100 mg Documented by: Potassium Chloride 40 meq/ (Dextrose) 520 mls @ 130 mls/hr IV UD PRN PRN Reason: Potassium < 3 Magnesium Sulfate (Magnesium Sulfate) 2 gm in 50 mls @ 50 mls/hr IV UD PRN PRN Reason: Magnesium </= 1.6 Lactobacillus Rhamnosus (Culturelle) 1 cap PO BID [facility] Last Admin: 08/13/20 10:52 Dose: 1 cap Documented by: Lactulose (Cephulac) 20 gm PO DAILYP PRN PRN Reason: Constipation Loperamide HCl (Imodium) 2 mg PO DAILYP PRN PRN Reason: Diarrhea Methadone HCl (Dolophine) 20 mg PO DAILYP PRN PRN Reason: opioid withdrawal Last Admin: 08/13/20 10:51 Dose: 20 mg Documented by: Nicotine (Nicoderm) 21 mg TOPICAL DAILY@1000 [facility] Last Admin: 08/13/20 10:51 Dose: 21 mg Documented by: Ondansetron HCl (Zofran) 4 mg IV Q4HP PRN PRN Reason: Nausea And Vomiting Oxycodone/Acetaminophen (Percocet 10-325mg) 1 tab PO Q4HP PRN; Protocol PRN Reason: Per Pain Protocol Last Admin: 08/13/20 06:45 Dose: 1 tab Documented by: Potassium Chloride (Kdur) 40 meq PO UD PRN PRN Reason: Potssium is 3-3.5 Potassium Chloride (Kdur) 40 meq PO UD PRN PRN Reason: Potassium < 3 Promethazine HCl (Phenergan) 25 mg IV Q4-6HP PRN PRN Reason: Nausea And Vomiting Senna (Senokot) 2 tab PO DAILYP PRN PRN Reason: Constipation Sodium Chloride (Saline Flush) 10 ml IV Q8 [facility] Last Admin: 08/13/20 06:23 Dose: 10 ml Documented by: A/P Assessment and plan (1) Abscess of left forearm: Status: Acute (2) Deep vein thrombosis (DVT) of left upper extremity: Status: Acute Qualifiers: Affected thrombotic vein of extremity: unspecified vein of extremity Chronicity: acute Qualified Code(s): I82.622 - Acute embolism and thrombosis of deep veins of left upper extremity (3) Heroin withdrawal: Status: Acute (4) IVDU (intravenous drug user): Status: Acute Comment: heroin Narrative A/P Narrative: A: #LUE abscess w/ cellulitis: s/p I&D (08/07) #Bacteremia (Streptococcus pyogenes): secondary to IVDU #Acute on chronic anemia: likely d/t recent blood loss (stable) #Probable 1/2 blood culture contaminant-gram positive bacillus- (final ID pending) #Sepsis:resolved #LUE DVT: -off anticoagulation d/t recent surgical site bleed #EMELINA: resolved #Hyponatremia: resolved #Hypokalemia: resolved #Substance use disorder: Heroin/Methamphetamine/Marijuana #Hepatitis C infection: #Tobacco use disorder P: -continue Cefazolin, if able to place will go to Rocephin daily, needs 2 weeks IV abx (through 08/19/20) -follow all pending blood cultures -follow hemoglobin, transfuse RBC for hgb<7 or symptomatic anemia -holding lovenox for bleeding from surgical incision-discuss with Surgeon regarding timing of restarting anticoagulation -wean pain medications as tolerated-likely discontinue dilaudid IV tomorrow -prn methadone/clonidine/imodium/promethazine for withdrawal symptoms -Infectious disease consult if able to discuss outpatient treatment options in the setting of IVDU -wound care consulted-follow up in wound care clinic -GI referral at discharge for hepatitis C infection management -f/u with Dr. Thakur outpatient -Dispo: hx of IVDU will complicate discharge planning, needs at least 2 weeks of abx from first negative blood culture. Time Spent With Patient Time: Total time spent is greater than 50% in coordination of care (as documented) at patient's floor/unit and/or counseling patient: QUALITY VTE Deep Vein Thrombosis/Pulmonary Embolism Present on Admission: Yes
[2020-08-13 14:01] LABS: Amylase 108 U/L (28-100)
[2020-08-13 14:54] LABS: Hemoglobin 8.9 g/dL (13.5-16.5)
--- NOTE | 2020-08-13 17:53 | General Surgery Progress Note ---
SUBJECTIVE Subjective Patient information: Note initiated : 08/13/20 at 5:53 pm Service Date, if different from initiated Date: [] Patient: Cash Dumont 30 y/o M admitted on 08/05/20 for IV drug use infection. Chief Complaint: [] Principal diagnosis: abscesses, cellulitis left arm Constitutional Vitals: Vital Signs Temp Pulse Resp BP Pulse Ox 98.6 F 94 H 18 120/73 96 08/13/20 16:00 08/13/20 16:00 08/13/20 16:00 08/13/20 16:00 08/13/20 16:00 Period Temp Pulse Resp BP Sys/Soliz Pulse Ox Last 24 Hr 97.6 F-99.2 F 82-103 18-20 114-120/68-77 96-98 Intake and Output 08/13/20 08/13/20 08/13/20 05:59 13:59 21:59 Intake Total 240 480 500 Balance 240 480 500 Intake & Output: Intake & Output 08/13/20 08/13/20 08/13/20 05:59 13:59 21:59 Intake Total 240 480 500 Balance 240 480 500 Intake: Oral 240 480 500 Other: Meal Breakfast Lunch Percent of Meal Consumed 100% 100% Feeding Ability Independent Independent Urine Appearance Clear # Voids 3 A/P Time Spent With Patient Time: Total time spent is greater than 50% in coordination of care (as documented) at patient's floor/unit and/or counseling patient:
[2020-08-14] MEDS: oxyCODONE/APAP 10/325MG TABLET PO PRN ×3 (00:40→12:55)
[2020-08-14] MEDS: 0.9 % SODIUM CHLORIDE 10 ML SYRINGE IV SCH (06:03)
[2020-08-14] MEDS: ceFAZolin 1 GM VIAL IV SCH ×2 (06:03→12:55)
--- NOTE | 2020-08-14 06:51 | Infectious Disease Consult ---
HPI Data of Consult Primary Care Provider: PCP No Consult Narrative Patient Information: Note initiated : 08/14/20 at 6:41 am Service Date, if different from initiated Date: [] Patient: Cash Dumont 30 y/o M admitted on 08/05/20 for IV drug use infection. Chief Complaint: [Danilo is a 30-year-old man who was admitted in the hospital on August 05. He is currently postop day 7 left forearm incision and drainage in the antecubital space. He had self injected himself approximately 5 days prior to admission. Drug screen was positive for opiates and meth. Previous history of MRSA. No previous history of infection. HIV testing negative but hepatitis C testing is positive with 1,250,[address] scan of his left upper extremity identified DVT in the axillary vein as well as superficial vein thrombosis. Anticoagulation was begun but had to be held secondary to bleeding at the surgical site. Dr. Froylan Ceron is general surgeon and has been involved. I was able to talk with Dr. Ceron last night. Echocardiogram showed trace mitral regurgitation without vegetation. EF 55 to 60%. Danilo has been transitioned to Ancef 2 g IV every 8 hours. Original blood cultures August 04 grew group a strep. Follow-up blood cultures August 09 have been negative. Wound cultures at the time of surgical debridement on August 07 revealed gram-positive cocci in pairs and clusters and also grew group A strep. Another blood culture on August 06 single bottle identified a gram-positive eunice that did not grow. I reviewed [facility] microbiology which suggested possible lactobacillus. It did not have characteristic appearance of Clostridium. His admit creatinine on August 05 was 1.7. Creatinine has since improved. She denies a previous history of being jaundiced. His hepatitis B surface antibody was positive. He denies having any knowledge of previous hepatitis B vaccination. I was able to see photos of his wound from August 05 as well as August 09. I had an opportunity to see him last night to discuss with him and his mother plan for treatment. I am dictating my consult note this morning which accumulates my visit from yesterday and again this morning. I reviewed with nursing this morning. Dr. Abebe asked for c onsultation to assist with antibiotic recommendations. Dr. Ceron has suggested the possibility of oritavanci as a single dose. Adherence to treatment recommendations and follow-up is a concern.] cc:: CC: Donnell Storm Review of Systems Review of systems: General: Patient does admit to fevers prior to admission. He had a T-max of 1-1.1 on August 04. HEENT: No headaches or sore throat. No neck complaints. Pulmonary: No history of pneumonia. Cardiac: Echocardiogram showed trace MRFish GI: He admits to diarrhea prior to admission. No current abdominal pain or diarrhea. Extremities: He does complain of left proximal forearm itching. Dressing in place. The dressing has been changed approximately every other day. I arranged to see the wound this morning. No complaints of rash or lower extremity edema. PFSH PFSH All Active Problems Hep C w/o coma, chronic (Acute) Abscess of left forearm (Acute) Bacteremia due to Streptococcus (Acute) Deep vein thrombosis (DVT) of left upper extremity (Acute) Heroin withdrawal (Acute) Hyponatremia (Acute) Hypokalemia (Acute) Acute dehydration (Acute) Anemia (Acute) Laceration (Acute) Sepsis (Acute) Cellulitis (Acute) IVDU (intravenous drug user) (Acute) Medical History Laceration (Acute) Social History smoking status: Current every day smoker substance use type: heroin (last use 07/30/2020 reported on 08/04/2020.) MEDS/ALLERGIES Home Medications and Allergies Home Medications Medication Instructions Recorded Confirmed Type No Known Home Meds 07/11/16 08/05/20 History Allergies Allergy/AdvReac Type Severity Reaction Status Date / Time No Known Drug Allergies Allergy Verified 08/05/20 05:34 Physical Examination Vital Signs Vital signs: Temp Pulse Resp BP Pulse Ox 97.8 F 91 H 16 106/65 97 08/14/20 04:26 08/14/20 04:26 08/14/20 04:26 08/14/20 04:26 08/14/20 04:26 Constitutional General appearance: other Additional Exam Additional exam: General: No acute distress. HEENT: EOMI PERRL sclera anicteric. Neck is supple. Lungs are clear bilaterally. Heart: Regular rate and rhythm without murmur. Abdomen soft benign. Extremities. Left antecubital dressing removed. No erythema. Surgical site. The wound is irregularly shaped oblong approximately 3 and half by 2 cm x 1 cm deep. Tissue slightly swollen distal to wound. No fluctuance or drainage. Wound is clean with good granulation tissue developing. No proximal cord palpated. I do not appreciate surrounding cellulitis. Results Laboratory Findings CBC and BMP: 08/13/20 14:03 08/13/20 04:47 Abnormal lab findings: Abnormal Labs 08/04/20 08/04/20 08/04/20 21:35 21:35 21:35 WBC 19.7 H RBC 3.92 L Hgb 11.1 L Hct 30.5 L POC Hct MCV 77.8 L MCHC 36.4 H RDW Plt Count 122 L MPV 11.7 H Neut % (Auto) Lymph % (Auto) Maries # (Auto) Seg Neutrophils % 82 H Lymphocytes % 6 L Absolute Neutrophils Toxic Granulation 1+ A Platelet Estimate Decreased A RBC Morphology Abnormal A Microcytosis 1+ A ESR POC Sodium Sodium 114 L* POC Potassium Potassium 2.7 L* POC Chloride Chloride 76 L Carbon Dioxide 20 L POC Total CO2 Anion Gap 18.0 H POC BUN BUN 39 H Creatinine 1.4 H POC Creatinine Glucose POC Glucose Osmolality Calcium 7.2 L POC WB Ioniz Calcium Phosphorus Magnesium Total Bilirubin 1.9 H Direct Bilirubin GGT AST 190 H ALT 85 H Alkaline Phosphatase 140 H Lactate Dehydrogenase C-Reactive Protein 14.20 H Total Protein Albumin 2.9 L Albumin/Globulin Ratio 0.9 L Triglycerides Amylase Lipase Procalcitonin Urine Appearance Urine Protein Urine Urobilinogen Urine WBC Uric Acid Crystals Amorphous Crystals Urine Mucus Urine Opiates Screen Ur Amphetamines Screen Hep Bs Antibody Hepatitis C Antibody 08/04/20 08/05/20 08/05/20 21:35 00:11 01:43 WBC RBC Hgb Hct POC Hct 28 L MCV MCHC RDW Plt Count MPV Neut % (Auto) Lymph % (Auto) Maries # (Auto) Seg Neutrophils % Lymphocytes % Absolute Neutrophils Toxic Granulation Platelet Estimate RBC Morphology Microcytosis ESR POC Sodium 120 L Sodium POC Potassium 2.3 L* Potassium POC Chloride 89 L Chloride Carbon Dioxide POC Total CO2 18 L Anion Gap POC BUN 33 H BUN Creatinine POC Creatinine 1.6 H Glucose POC Glucose Osmolality 252 L Calcium POC WB Ioniz Calcium 0.89 L Phosphorus Magnesium Total Bilirubin Direct Bilirubin GGT AST ALT Alkaline Phosphatase Lactate Dehydrogenase C-Reactive Protein Total Protein Albumin Albumin/Globulin Ratio Triglycerides Amylase Lipase Procalcitonin Urine Appearance Urine Protein Urine Urobilinogen Urine WBC Uric Acid Crystals Amorphous Crystals Urine Mucus Urine Opiates Screen Suspect positive A Ur Amphetamines Screen Suspect positive A Hep Bs Antibody Hepatitis C Antibody 08/05/20 08/05/20 08/05/20 01:43 04:35 04:35 WBC 16.3 H RBC 3.43 L Hgb 9.7 L Hct 27.4 L POC Hct MCV 79.9 L MCHC RDW Plt Count 109 L MPV 12.1 H Neut % (Auto) 80.8 H Lymph % (Auto) 9.7 L Maries # (Auto) 1.36 H Seg Neutrophils % Lymphocytes % Absolute Neutrophils 13.15 H Toxic Granulation Platelet Estimate RBC Morphology Microcytosis ESR POC Sodium Sodium 118 L* POC Potassium Potassium 2.9 L* POC Chloride Chloride 89 L Carbon Dioxide 19 L POC Total CO2 Anion Gap POC BUN BUN 39 H Creatinine 1.7 H POC Creatinine Glucose 122 H POC Glucose Osmolality Calcium 6.6 L POC WB Ioniz Calcium Phosphorus 2.0 L Magnesium 2.6 H Total Bilirubin 1.3 H Direct Bilirubin 1.1 H GGT AST 123 H ALT 71 H Alkaline Phosphatase Lactate Dehydrogenase C-Reactive Protein Total Protein 5.1 L Albumin 2.1 L Albumin/Globulin Ratio 0.7 L Triglycerides 270 H Amylase Lipase Procalcitonin Urine Appearance Hazy A Urine Protein 100 A Urine Urobilinogen 2.0 A Urine WBC 8 H Uric Acid Crystals Few A Amorphous Crystals Few A Urine Mucus Few A Urine Opiates Screen Ur Amphetamines Screen Hep Bs Antibody Hepatitis C Antibody 08/05/20 08/05/20 08/05/20 04:35 04:35 07:19 WBC RBC Hgb Hct POC Hct 30 L MCV MCHC RDW Plt Count MPV Neut % (Auto) Lymph % (Auto) Maries # (Auto) Seg Neutrophils % Lymphocytes % Absolute Neutrophils Toxic Granulation Platelet Estimate RBC Morphology Microcytosis ESR 43 H POC Sodium 120 L Sodium POC Potassium 3.2 L Potassium POC Chloride 95 L Chloride Carbon Dioxide POC Total CO2 17 L Anion Gap POC BUN 33 H BUN Creatinine POC Creatinine 1.3 H Glucose POC Glucose 118 H Osmolality Calcium POC WB Ioniz Calcium 0.80 L Phosphorus Magnesium Total Bilirubin Direct Bilirubin GGT AST ALT Alkaline Phosphatase Lactate Dehydrogenase C-Reactive Protein Total Protein Albumin Albumin/Globulin Ratio Triglycerides Amylase Lipase Procalcitonin 13.07 H Urine Appearance Urine Protein Urine Urobilinogen Urine WBC Uric Acid Crystals Amorphous Crystals Urine Mucus Urine Opiates Screen Ur Amphetamines Screen Hep Bs Antibody Hepatitis C Antibody 08/05/20 08/05/20 08/05/20 07:54 12:02 15:43 WBC RBC Hgb Hct POC Hct 30 L 32 L MCV MCHC RDW Plt Count MPV Neut % (Auto) Lymph % (Auto) Maries # (Auto) Seg Neutrophils % Lymphocytes % Absolute Neutrophils Toxic Granulation Platelet Estimate RBC Morphology Microcytosis ESR POC Sodium 125 L 127 L Sodium 124 L POC Potassium 2.7 L* Potassium POC Chloride Chloride 93 L Carbon Dioxide 19 L POC Total CO2 17 L 19 L Anion Gap POC BUN 29 H 27 H BUN 30 H Creatinine POC Creatinine 1.3 H Glucose POC Glucose 117 H Osmolality Calcium 7.4 L POC WB Ioniz Calcium 1.01 L 1.06 L Phosphorus Magnesium Total Bilirubin Direct Bilirubin GGT AST ALT Alkaline Phosphatase Lactate Dehydrogenase C-Reactive Protein Total Protein Albumin Albumin/Globulin Ratio Triglycerides Amylase Lipase Procalcitonin Urine Appearance Urine Protein Urine Urobilinogen Urine WBC Uric Acid Crystals Amorphous Crystals Urine Mucus Urine Opiates Screen Ur Amphetamines Screen Hep Bs Antibody Hepatitis C Antibody See comment A 08/05/20 08/06/20 08/06/20 18:37 04:54 04:54 WBC 16.2 H RBC 3.18 L Hgb 9.1 L Hct 26.5 L POC Hct 31 L MCV MCHC RDW Plt Count MPV 12.2 H Neut % (Auto) Lymph % (Auto) 14.5 L Maries # (Auto) 1.36 H Seg Neutrophils % Lymphocytes % Absolute Neutrophils 12.16 H Toxic Granulation Platelet Estimate RBC Morphology Microcytosis ESR POC Sodium 126 L Sodium 126 L POC Potassium Potassium POC Chloride Chloride 94 L Carbon Dioxide 19 L POC Total CO2 18 L Anion Gap POC BUN 25 H BUN 21 H Creatinine POC Creatinine Glucose POC Glucose 122 H Osmolality Calcium 7.3 L POC WB Ioniz Calcium 1.05 L Phosphorus 2.2 L Magnesium Total Bilirubin Direct Bilirubin 0.4 H GGT AST 53 H ALT 56 H Alkaline Phosphatase Lactate Dehydrogenase C-Reactive Protein Total Protein 5.2 L Albumin 2.1 L Albumin/Globulin Ratio 0.7 L Triglycerides 216 H Amylase Lipase Procalcitonin Urine Appearance Urine Protein Urine Urobilinogen Urine WBC Uric Acid Crystals Amorphous Crystals Urine Mucus Urine Opiates Screen Ur Amphetamines Screen Hep Bs Antibody Hepatitis C Antibody 08/06/20 08/06/20 08/06/20 10:20 14:10 18:08 WBC RBC Hgb Hct POC Hct 30 L 27 L 29 L MCV MCHC RDW Plt Count MPV Neut % (Auto) Lymph % (Auto) Maries # (Auto) Seg Neutrophils % Lymphocytes % Absolute Neutrophils Toxic Granulation Platelet Estimate RBC Morphology Microcytosis ESR POC Sodium 127 L 126 L 127 L Sodium 126 L POC Potassium 3.1 L Potassium POC Chloride 93 L Chloride Carbon Dioxide 18 L POC Total CO2 19 L 20 L 20 L Anion Gap POC BUN BUN Creatinine POC Creatinine Glucose POC Glucose 131 H Osmolality Calcium 7.5 L POC WB Ioniz Calcium 1.00 L 0.99 L 1.07 L Phosphorus Magnesium Total Bilirubin Direct Bilirubin GGT AST ALT Alkaline Phosphatase Lactate Dehydrogenase C-Reactive Protein Total Protein Albumin Albumin/Globulin Ratio Triglycerides Amylase Lipase Procalcitonin Urine Appearance Urine Protein Urine Urobilinogen Urine WBC Uric Acid Crystals Amorphous Crystals Urine Mucus Urine Opiates Screen Ur Amphetamines Screen Hep Bs Antibody Hepatitis C Antibody 08/07/20 08/07/20 08/08/20 05:28 05:28 04:50 WBC 18.0 H 16.5 H RBC 3.32 L 3.23 L Hgb 9.4 L 9.1 L Hct 27.2 L 26.9 L POC Hct MCV MCHC RDW Plt Count MPV 10.9 H 11.2 H Neut % (Auto) Lymph % (Auto) Maries # (Auto) 1.10 H 0.93 H Seg Neutrophils % Lymphocytes % Absolute Neutrophils 13.65 H 12.81 H Toxic Granulation Platelet Estimate RBC Morphology Microcytosis ESR POC Sodium Sodium 127 L POC Potassium Potassium POC Chloride Chloride 94 L Carbon Dioxide POC Total CO2 Anion Gap POC BUN BUN Creatinine POC Creatinine Glucose POC Glucose Osmolality Calcium 7.7 L POC WB Ioniz Calcium Phosphorus Magnesium Total Bilirubin Direct Bilirubin 0.5 H GGT AST 51 H ALT 54 H Alkaline Phosphatase 124 H Lactate Dehydrogenase C-Reactive Protein Total Protein 5.5 L Albumin 2.3 L Albumin/Globulin Ratio 0.7 L Triglycerides Amylase Lipase Procalcitonin Urine Appearance Urine Protein Urine Urobilinogen Urine WBC Uric Acid Crystals Amorphous Crystals Urine Mucus Urine Opiates Screen Ur Amphetamines Screen Hep Bs Antibody Hepatitis C Antibody 08/08/20 08/09/20 08/09/20 04:50 04:50 04:50 WBC 12.7 H RBC 3.26 L Hgb 9.2 L Hct 27.8 L POC Hct MCV MCHC RDW Plt Count MPV Neut % (Auto) Lymph % (Auto) Maries # (Auto) 0.95 H Seg Neutrophils % Lymphocytes % Absolute Neutrophils 8.82 H Toxic Granulation Platelet Estimate RBC Morphology Microcytosis ESR POC Sodium Sodium 131 L POC Potassium Potassium POC Chloride Chloride Carbon Dioxide POC Total CO2 Anion Gap 5.0 L POC BUN BUN Creatinine POC Creatinine Glucose POC Glucose Osmolality Calcium 7.7 L 7.9 L POC WB Ioniz Calcium Phosphorus Magnesium Total Bilirubin Direct Bilirubin 0.3 H GGT 69 H AST 108 H 114 H ALT 75 H 99 H Alkaline Phosphatase 126 H 148 H Lactate Dehydrogenase C-Reactive Protein Total Protein 5.5 L 5.7 L Albumin 2.5 L 2.3 L Albumin/Globulin Ratio 0.8 L 0.7 L Triglycerides 170 H Amylase Lipase Procalcitonin Urine Appearance Urine Protein Urine Urobilinogen Urine WBC Uric Acid Crystals Amorphous Crystals Urine Mucus Urine Opiates Screen Ur Amphetamines Screen Hep Bs Antibody Hepatitis C Antibody 08/11/20 08/12/20 08/12/20 05:16 05:13 05:13 WBC 12.9 H RBC 3.08 L 3.11 L Hgb 8.6 L 8.8 L Hct 28.4 L 27.8 L POC Hct MCV MCHC 30.3 L RDW 15.0 H 14.9 H Plt Count 443 H MPV Neut % (Auto) Lymph % (Auto) Maries # (Auto) Seg Neutrophils % Lymphocytes % Absolute Neutrophils 8.54 H Toxic Granulation Platelet Estimate RBC Morphology Microcytosis ESR POC Sodium Sodium POC Potassium Potassium POC Chloride Chloride Carbon Dioxide POC Total CO2 Anion Gap 7.0 L POC BUN BUN Creatinine POC Creatinine Glucose POC Glucose Osmolality Calcium POC WB Ioniz Calcium Phosphorus Magnesium Total Bilirubin Direct Bilirubin GGT 64 H AST ALT 40 H Alkaline Phosphatase 129 H Lactate Dehydrogenase 108 L C-Reactive Protein Total Protein Albumin 2.8 L Albumin/Globulin Ratio 0.8 L Triglycerides 214 H Amylase Lipase Procalcitonin Urine Appearance Urine Protein Urine Urobilinogen Urine WBC Uric Acid Crystals Amorphous Crystals Urine Mucus Urine Opiates Screen Ur Amphetamines Screen Hep Bs Antibody Hepatitis C Antibody 08/13/20 08/13/20 08/13/20 04:47 04:47 04:47 WBC RBC 3.11 L Hgb 8.8 L Hct 28.6 L POC Hct MCV MCHC 30.8 L RDW 15.0 H Plt Count MPV Neut % (Auto) Lymph % (Auto) Maries # (Auto) Seg Neutrophils % Lymphocytes % Absolute Neutrophils Toxic Granulation Platelet Estimate RBC Morphology Microcytosis ESR POC Sodium Sodium POC Potassium Potassium POC Chloride Chloride Carbon Dioxide POC Total CO2 Anion Gap POC BUN BUN Creatinine POC Creatinine Glucose POC Glucose Osmolality Calcium POC WB Ioniz Calcium Phosphorus Magnesium Total Bilirubin Direct Bilirubin GGT 65 H AST ALT Alkaline Phosphatase 139 H Lactate Dehydrogenase 112 L C-Reactive Protein Total Protein Albumin 3.0 L Albumin/Globulin Ratio 0.9 L Triglycerides 211 H Amylase Lipase Procalcitonin Urine Appearance Urine Protein Urine Urobilinogen Urine WBC Uric Acid Crystals Amorphous Crystals Urine Mucus Urine Opiates Screen Ur Amphetamines Screen Hep Bs Antibody Positive A Hepatitis C Antibody 08/13/20 08/13/20 04:47 14:03 WBC RBC Hgb 8.9 L Hct 29.0 L POC Hct MCV MCHC RDW Plt Count MPV Neut % (Auto) Lymph % (Auto) Maries # (Auto) Seg Neutrophils % Lymphocytes % Absolute Neutrophils Toxic Granulation Platelet Estimate RBC Morphology Microcytosis ESR POC Sodium Sodium POC Potassium Potassium POC Chloride Chloride Carbon Dioxide POC Total CO2 Anion Gap POC BUN BUN Creatinine POC Creatinine Glucose POC Glucose Osmolality Calcium POC WB Ioniz Calcium Phosphorus Magnesium Total Bilirubin Direct Bilirubin GGT AST ALT Alkaline Phosphatase Lactate Dehydrogenase C-Reactive Protein Total Protein Albumin Albumin/Globulin Ratio Triglycerides Amylase 108 H Lipase 65 H Procalcitonin Urine Appearance Urine Protein Urine Urobilinogen Urine WBC Uric Acid Crystals Amorphous Crystals Urine Mucus Urine Opiates Screen Ur Amphetamines Screen Hep Bs Antibody Hepatitis C Antibody Microbiology: Microbiology 08/09/20 16:48 Blood Blood Culture - Preliminary 08/09/20 16:38 Blood Blood Culture - Preliminary 08/06/20 04:54 Blood Blood Culture - Preliminary Gram positive bacillus 08/07/20 09:31 Arm - Lower Left Gram Stain - Final 08/07/20 09:31 Arm - Lower Left Anaerobic Culture - Final 08/07/20 09:31 Arm - Lower Left Gram Stain - Final 08/07/20 09:31 Arm - Lower Left Wound Culture - Final Strep pyogenes (grp a) 08/06/20 04:48 Blood Blood Culture - Final 08/04/20 21:50 Blood Blood Culture - Final Strep pyogenes (grp a) 08/04/20 21:50 Blood Blood Culture - Preliminary Strep pyogenes (grp a) 08/05/20 04:26 Nose - Both Right and Left MRSA (PCR) - Final On August 05 albumin 2.1 total protein 5.1 alk phos 114 AST 123 ALT 71 creatinine 1.7. August 06 white count 16.2. Hepatitis C viral count 1,250,000 international units on August 05. Yesterday white count 9.8 platelet count 408 creatinine 0.9 AST 29 ALT 34 total protein 6.4 albumin 3.0. He had a negative HIV test and a positive hepatitis B surface antibody. He does need to have a hepatitis B surface antigen checked. A strep grew from surgical culture August 07 and blood culture August 04. I am not concerned about the single positive bottle for gram-positive eunice that did not grow from a blood culture on August 06. I reviewed with micro which suggests contaminant. A/P Assessment and plan (1) Abscess of left forearm: Status: Acute Comment: Danilo is a 30-year-old injection drug user who is postop day 7 from incision and drainage of left proximal forearm abscess. Cultures grew group A strep from blood culture and surgical culture. He is currently on IV Ancef. Wound is healing. It appears clean today without surrounding cellulitis. There is some indurated tissue distal to the wound that is not erythematous. He had left axillary DVT as well as some superficial thrombosis associated with this wound. Follow-up blood cultures have been negative. Echocardiogram did not show vegetation. Primary source of infection is this local area of abscess for bacteremia. Dr. Ceron has suggested possible use of oritavancin. typically, this medication is used for MRSA. I would be comfortable switching to oral Augmentin 875 mg p.o. twice daily for another 2 weeks. Patient assures me that he will pickle processor prescription. I reviewed with mom last night. Arrangements are being made to provide dressing changes daily. Patient is unable to do dressing change himself but mom is willing to assist. Follow-up wound care will also be arranged. I would like to see him in follow-up clinic next Monday and I will see him weekly. (2) Bacteremia due to Streptococcus: Status: Acute Comment: He has had 9 days of IV therapy since first negative blood culture without group A strep. I am not concerned about the gram-positive eunice identified as a single bottle on August 06. Micro feels that this is consistent with lactobacillus which is likely contaminant. (3) Deep vein thrombosis (DVT) of left upper extremity: Status: Acute Comment: Left axillary vein with DVT with additional superficial vein thrombosis involved. Qualifiers: Affected thrombotic vein of extremity: unspecified vein of extremity Chronicity: acute Qualified Code(s): I82.622 - Acute embolism and thrombosis of deep veins of left upper extremity (4) IVDU (intravenous drug user): Status: Acute Comment: heroin. Meth Screen positive also. Patient is interested in rehab either [place] or [place]. (5) Hep C w/o coma, chronic: Status: Acute Comment: Check hepatitis B surface antigen. His surface antibody for hepatitis B was positive. He is not aware of previous hep B vaccination. If B surface antigen positive, he would need to have a hepatitis B viral count. I can review with him future hepatitis C treatment once this current infection/wound is resolved. Thank you very much for let me be involved in Danilo's consultative care. Time Spent With Patient Time: Total time spent is greater than 50% in coordination of care (as documented) at patient's floor/unit and/or counseling patient:
[2020-08-14 06:53] LABS: Blood Urea Nitrogen 17 mg/dL (6-20); Calcium 9.3 mg/dL (8.6-10.4); Carbon Dioxide 27 mmol/L (22-30); Chloride 101 mmol/L (96-108); Glomerular Filtration Rate 101; Glucose 107 mg/dL (70-105)
--- NOTE | 2020-08-14 07:25 | Internal Med Progress Note ---
SUBJECTIVE Subjective Patient information: Note initiated : 08/14/20 at 7:22 am Service Date, if different from initiated Date: [] Patient: Cash Dumont 30 y/o M admitted on 08/05/20 for IV drug use infection. Chief Complaint: [] Principal diagnosis: abscesses, cellulitis left arm Interval history: Presented the ED with body aches diarrhea headaches and fever with the left arm that is red painful and swollen. Last used IV heroin about 4- 5 days ago and felt he missed the vein. Also reports opiate withdrawal symptoms including diarrhea and abdominal achiness and urinary continence. Has had lightheadedness and dizziness. Reports hallucinations. He does use marijuana as well and occasionally uses methamphetamine. 08/06 No overnight event or new complaints. Electrolytes improving. Did get methadone for withdrawal at night. 08/07 States poor sleep. Sodium appropriate. Initially sodium showed rapid increase in the throughout the ED and so we attempted reversal but essentially stalled at and has been an appropriate elevation over 48 hours. Patient will get a I&D of his arm abscess today by Dr. Ceron. Persistent leukocytosis I suspect related to the abscess that has not been drained yet. Chemistry panel improving. 08/08 Patient had I&D of arm yesterday. No overnight event. Sodium appropriate. O ccasional headache but otherwise no new complaints. 08/09 Had blood oozing from wound so returned to OR for second look-likely cephalic vein bleed. Discontinued Lovenox SQ. 08/10 No bleeding issues, overall seems to be improving from the infectious perspective. 08/11 Hemoglobin down trend but no evidence of active bleeding. Discussed gram positive bacillus blood culture result with microbiology lab-probably a contaminant. 08/12 Positive Hepatitis C RNA, will need referral to GI after discharge to discuss treatment for hepatitis C infection. Ongoing discharge planning. 08/13 Feels well, ongoing discharge planning. 08/14 No overnight event or new complaints. Patient feeling well. Patient seen by infectious disease doctor Dr. Stevens. Patient will likely be transitioned to Augmentin as he is too high risk for sent out with a PICC line to finish his IV course. He is already had 9 days of IV therapy. Review of Systems: denies headache/fever/chills/nausea/vomiting/chest or abdominal pain/cough/dyspnea/diarrhea. Otherwise see above. Constitutional Vitals: Vital Signs Temp Pulse Resp BP Pulse Ox 97.8 F 91 H 16 106/65 97 08/14/20 04:26 08/14/20 04:26 08/14/20 06:29 08/14/20 04:26 08/14/20 04:26 Period Temp Pulse Resp BP Sys/Soliz Pulse Ox Last 24 Hr 97.7 F-98.6 F 82-94 14-18 106-120/64-77 96-99 Intake and Output 08/13/20 08/14/20 08/14/20 21:59 05:59 13:59 Intake Total 1210 540 Output Total 1 Balance 1210 539 Weight 74.117 kg Intake & Output: Intake & Output 08/13/20 08/14/20 08/14/20 21:59 05:59 13:59 Intake Total 1210 540 Output Total 1 Balance 1210 539 Weight 74.117 kg Intake: Oral 1210 540 Output: Void Amount 1 Other: Meal Callahan Percent of Meal Consumed 100% Feeding Ability Independent Urine Appearance Clear Clear Clear Urine Color Light Zaria Urine Odor Strong Stool Size Moderate Stool Color Brown Stool Consistency Formed # Voids 5 # Bowel Movements 1 Exam: General: Alert, Awake, No acute Distress Eyes/N/T: EOMI, Head/Neck: neck supple, CV: RRR, 2/6 SM Pulm: Clear b/l, no wheezing/rhonchi/rales Abd: soft, nontender, +BS x4 Ext: no clubbing/cyanosis/edema LE's, LUE elbow to wrist erythematous/edematous/tender to touch/indurated - much Improved Neuro: Alert, no focal deficits, moves all extremities, Skin: warm/dry OBJ DATA Labs CBC & Chem 7: 08/13/20 14:03 08/14/20 04:49 Labs: Abnormal Lab Results 08/14/20 08/13/20 08/13/20 04:49 14:03 04:47 RBC Hgb 8.9 L Hct 29.0 L MCHC RDW Plt Count Anion Gap Glucose 107 H GGT ALT Alkaline Phosphatase Lactate Dehydrogenase Albumin Albumin/Globulin Ratio Triglycerides Amylase 108 H Lipase 65 H Hep Bs Antibody 08/13/20 08/13/20 08/13/20 04:47 04:47 04:47 RBC 3.11 L Hgb 8.8 L Hct 28.6 L MCHC 30.8 L RDW 15.0 H Plt Count Anion Gap Glucose GGT 65 H ALT Alkaline Phosphatase 139 H Lactate Dehydrogenase 112 L Albumin 3.0 L Albumin/Globulin Ratio 0.9 L Triglycerides 211 H Amylase Lipase Hep Bs Antibody Positive A 08/12/20 08/12/20 05:13 05:13 RBC 3.11 L Hgb 8.8 L Hct 27.8 L MCHC RDW 14.9 H Plt Count 443 H Anion Gap 7.0 L Glucose GGT 64 H ALT 40 H Alkaline Phosphatase 129 H Lactate Dehydrogenase 108 L Albumin 2.8 L Albumin/Globulin Ratio 0.8 L Triglycerides 214 H Amylase Lipase Hep Bs Antibody Meds: Medications Acetaminophen (Tylenol) 650 mg PO Q6HP PRN PRN Reason: PAIN/FEVER > 101 Albuterol/Ipratropium (Duoneb) 3 ml NEB Q4HP PRN PRN Reason: Shortness Of Breath Cefazolin Sodium (Ancef) 2 gm IV Q8H [facility] Last Admin: 08/14/20 06:03 Dose: 2 gm Documented by: Clonidine HCl (Catapres) 0.1 mg PO Q4HP PRN PRN Reason: opioid withdrawal Docusate Sodium (Colace) 100 mg PO BID [facility] Last Admin: 08/13/20 20:56 Dose: 100 mg Documented by: Potassium Chloride 40 meq/ (Dextrose) 520 mls @ 130 mls/hr IV UD PRN PRN Reason: Potassium < 3 Magnesium Sulfate (Magnesium Sulfate) 2 gm in 50 mls @ 50 mls/hr IV UD PRN PRN Reason: Magnesium </= 1.6 Lactobacillus Rhamnosus (Culturelle) 1 cap PO BID [facility] Last Admin: 08/13/20 20:56 Dose: 1 cap Documented by: Lactulose (Cephulac) 20 gm PO DAILYP PRN PRN Reason: Constipation Loperamide HCl (Imodium) 2 mg PO DAILYP PRN PRN Reason: Diarrhea Methadone HCl (Dolophine) 20 mg PO DAILYP PRN PRN Reason: opioid withdrawal Last Admin: 08/13/20 10:51 Dose: 20 mg Documented by: Nicotine (Nicoderm) 21 mg TOPICAL DAILY@1000 [facility] Last Admin: 08/13/20 10:51 Dose: 21 mg Documented by: Ondansetron HCl (Zofran) 4 mg IV Q4HP PRN PRN Reason: Nausea And Vomiting Oxycodone/Acetaminophen (Percocet 10-325mg) 1 tab PO Q4HP PRN; Protocol PRN Reason: Per Pain Protocol Last Admin: 08/14/20 06:04 Dose: 1 tab Documented by: Potassium Chloride (Kdur) 40 meq PO UD PRN PRN Reason: Potssium is 3-3.5 Potassium Chloride (Kdur) 40 meq PO UD PRN PRN Reason: Potassium < 3 Promethazine HCl (Phenergan) 25 mg IV Q4-6HP PRN PRN Reason: Nausea And Vomiting Senna (Senokot) 2 tab PO DAILYP PRN PRN Reason: Constipation Sodium Chloride (Saline Flush) 10 ml IV Q8 YVONNE Last Admin: 08/14/20 06:03 Dose: 10 ml Documented by: A/P Narrative A/P Narrative: A: #LUE abscess w/ cellulitis: s/p I&D (08/07) #Bacteremia (Streptococcus pyogenes): secondary to IVDU #Acute on chronic anemia: likely d/t recent blood loss (stable) #Probable 1/2 blood culture contaminant-gram positive bacillus- (final ID pending) #Sepsis:resolved #LUE DVT: -off anticoagulation d/t recent surgical site bleed #EMELINA: resolved #Hyponatremia: resolved #Hypokalemia: resolved #Substance use disorder: Heroin/Methamphetamine/Marijuana #Hepatitis C infection: #Tobacco use disorder P: -seen by ID, will switch to augmentin for another 2 weeks and f/u outpt with ID -holding lovenox for bleeding from surgical incision-discuss with Surgeon regarding timing of restarting anticoagulation -wean pain medications as tolerated-likely discontinue dilaudid IV tomorrow -prn methadone/clonidine/imodium/promethazine for withdrawal symptoms -Infectious disease consult if able to discuss outpatient treatment options in the setting of IVDU -wound care consulted-follow up in wound care clinic -GI referral at discharge for hepatitis C infection management -f/u with Dr. Thakur outpatient Time Spent With Patient Time: Total time spent is greater than 50% in coordination of care (as documented) at patient's floor/unit and/or counseling patient: QUALITY VTE Deep Vein Thrombosis/Pulmonary Embolism Present on Admission: Yes
[2020-08-14] MEDS: LACTOBACILLUS 1 CAPSULE PO SCH (08:54)
[2020-08-14] MEDS: DOCUSATE SODIUM 100 MG CAPSULE PO SCH (08:54)
[2020-08-14] MEDS: NICOTINE 21 MG PATCH TOPICAL SCH (09:21)
--- NOTE | 2020-08-14 10:38 | Discharge Summary ---
Discharge Provider Provider Patient information: Note initiated : 08/14/20 at 10:37 am Service Date, if different from initiated Date: [] Patient: Cash Dumont 30 y/o M admitted on 08/05/20 for IV drug use infection. Chief Complaint: [] Date of admission: 08/05/20 04:10 Discharge date: 08/14/20 Primary care physician: PCP No Consults: 08/05/20 07:12 Consult to Physician [CONS] Routine Comment: Consulting Provider: Donnell Storm Reason For Exam: Physician to Consult 08/06/20 11:01 Consult to Physician [CONS] Routine Comment: left arm abscess Consulting Provider: Tara Ceron Reason For Exam: Physician to Consult 08/13/20 13:42 Consult to Physician [CONS] Routine Comment: bacteremia and Hepatitis C Consulting Provider: Mika Stevens Reason For Exam: Physician to Consult Discharge Meds Discharge Medications Home Medications amoxicillin-pot clavulanate [Augmentin] 1 tab PO Q12H #14 tab 08/14/20 [Rx Last Taken Unknown] apixaban [Eliquis] 5 mg PO BID #60 tab 08/14/20 [Rx Last Taken Unknown] COURSE Hospital Course Hospital course: Principal diagnosis: abscesses, cellulitis left arm Interval history: Presented the ED with body aches diarrhea headaches and fever with the left arm that is red painful and swollen. Last used IV heroin about 4- 5 days ago and felt he missed the vein. Also reports opiate withdrawal symptoms including diarrhea and abdominal achiness and urinary continence. Has had lightheadedness and dizziness. Reports hallucinations. He does use marijuana as well and occasionally uses methamphetamine. 08/06 No overnight event or new complaints. Electrolytes improving. Did get methadone for withdrawal at night. 08/07 States poor sleep. Sodium appropriate. Initially sodium showed rapid increase in the throughout the ED and so we attempted reversal but essentially stalled at and has been an appropriate elevation over 48 hours. Patient will get a I&D of his arm abscess today by Dr. Ceron. Persistent leukocytosis I suspect related to the abscess that has not been drained yet. Chemistry panel improving. 08/08 Patient had I&D of arm yesterday. No overnight event. Sodium appropriate. Occasional headache but otherwise no new complaints. 08/09 Had blood oozing from wound so returned to OR for second look-likely cephalic vein bleed. Discontinued Lovenox SQ. 08/10 No bleeding issues, overall seems to be improving from the infectious perspective. 08/11 Hemoglobin down trend but no evidence of active bleeding. Discussed gram positive bacillus blood culture result with microbiology lab-probably a contaminant. 08/12 Positive Hepatitis C RNA, will need referral to GI after discharge to discuss treatment for hepatitis C infection. Ongoing discharge planning. 08/13 Feels well, ongoing discharge planning. 08/14 No overnight event or new complaints. Patient feeling well. Patient seen by infectious disease doctor Dr. Stevens. Patient will likely be transitioned to Augmentin as he is too high risk for sent out with a PICC line to finish his IV course. He is already had 9 days of IV therapy. discussed anticoagulation with Dr. Ceron who did not have any concerns with restarting. Eliquis. A: #LUE abscess w/ cellulitis: s/p I&D (08/07) #Bacteremia (Streptococcus pyogenes): secondary to IVDU #Acute on chronic anemia: likely d/t recent blood loss (stable) #Probable 1/2 blood culture contaminant-gram positive bacillus- (final ID pending) #Sepsis:resolved #LUE DVT: -off anticoagulation d/t recent surgical site bleed #EMELINA: resolved #Hyponatremia: resolved #Hypokalemia: resolved #Substance use disorder: Heroin/Methamphetamine/Marijuana #Hepatitis C infection: #Tobacco use disorder Discharge diagnosis: Left arm cellulitis abscess DVT strep pyogenes bacteremia sepsis Secondary discharge diagnosis: EMELINA electrolyte abnormalities substance abuse hepatitis C tobacco abuse Time Spent with Patient Time attestation: Total time spent providing and/or coordinating discharge services: Time spent: Greater than 30 minutes EXAM Constitutional Vitals: Temp Pulse Resp BP Pulse Ox 98.2 F 73 16 113/65 98 08/14/20 07:37 08/14/20 07:37 08/14/20 07:37 08/14/20 07:37 08/14/20 07:37 Discharge Data Data Completed and Pending Labs on day of discharge: Labs from last 24 hours 08/14/20 08/13/20 08/13/20 04:49 14:03 04:47 Hgb 8.9 L Hct 29.0 L Sodium 136 Potassium 4.5 Chloride 101 Carbon Dioxide 27 Anion Gap 8.0 BUN 17 Creatinine 1.0 GFR Calculation 101 Glucose 107 H Calcium 9.3 Amylase 108 H Lipase 65 H U Amphetamines Confirm 08/05/20 01:43 Hgb Hct Sodium Potassium Chloride Carbon Dioxide Anion Gap BUN Creatinine GFR Calculation Glucose Calcium Amylase Lipase U Amphetamines Confirm Positive Preliminary micro results at discharge 08/09/20 16:48 Blood Culture - Preliminary Blood 08/09/20 16:38 Blood Culture - Preliminary Blood 08/06/20 04:54 Blood Culture - Preliminary Blood Gram positive bacillus 08/04/20 21:50 Blood Culture - Preliminary Blood Strep pyogenes (grp a) Discharge Plan Patient/Caregiver Discharge Instructions Activity: increase activity as tolerated Diet: Regular Diet Instructions: Buprenorphine/Naloxone (Into the mouth) Activity Restrictions/Additional Instructions: Follow up with a Corporate Compliance Officer for your hepatitis C infection. Prescriptions: New Eliquis 5 mg tablet 5 mg PO BID Qty: 60 RF: 0 amoxicillin-pot clavulanate [Augmentin] 875-125 mg tablet 1 tab PO Q12H Qty: 14 RF: 0 Follow Up Plan Follow up with: Tara Ceron MD [Physician] - 08/18/20 8:15 am No,PCP [Primary Care Provider] - Mika Stevens MD [Physician] - (*f/u regarding bacteremia and Hepatitis C. If you have not heard from Dr. Stevens's office by Monday, please call and schedule a follow appointment to be seen MondayAug.18. ) China Thakur DO [Physician] - Patient Disposition: Home, Self-Care Prognosis: Undetermined Overall status at discharge: patient is progressing back to baseline Discharge Orders: Discharge Order (Routine); Ordered 08/14/20 Or[facility] By[facility] Thromb[facility]/Pulmonary Embolism Present on Admission: Yes
[2020-08-16] MEDS ORDERED: [UNRECOGNIZED DRUG - OTHER] IV ONE (09:00)
--- NOTE | 2020-08-24 15:44 | Operative Note ---
DATE OF OPERATION: 08/07/2020 PREOPERATIVE DIAGNOSIS: Abscess, left forearm with sepsis. POSTOPERATIVE DIAGNOSIS: Abscess, left forearm with sepsis. PROCEDURE: Drainage of abscess, left forearm with debridement of vessels and fascia. SURGEON: Tara Ceron M.D. FINDINGS: Abscess in the antecubital space with gross purulence noted in veins and with a vascular thrombosis and early fascial necrosis. DESCRIPTION OF PROCEDURE: Under general anesthesia, the left forearm was prepped and draped in a sterile field. Timeout procedure was carried out as per protocol. Transverse incision was made distal to the antecubital crease and extended into the antecubital space. There was a large volume of gross pus that was removed. The skin and subcutaneous fat was debrided and the veins in the area which were branches of the cephalic vein appeared grossly infected. They were also thrombosed. Segment of the vein was removed and there was gross pus in the veins. The end of the veins were ligated with 2-0 Vicryl. There was an artery which was still pulsatile and was not addressed. Irrigation was carried out. The fascial sheath in the antecubital space were superficially debrided of necrotic tissue, but the tendons and fascia were left intact otherwise. More irrigation was carried out. The area was packed with Aquacel AG gauze, covered with 4 x 4, Kerlix, and Coban. The patient tolerated the procedure well. He was awakened and transferred to the postanesthetic care unit in satisfactory condition. LCS:maged Job ID: [id number] Doc ID: [id number] Tara Ceron M.D.
--- NOTE | 2020-08-24 16:12 | Operative Note ---
DATE OF OPERATION: 08/09/2020 PREOPERATIVE DIAGNOSIS: Bleeding from postop incision. POSTOPERATIVE DIAGNOSIS: Bleeding from postop incision in the left antecubital space. PROCEDURE: Exploration of surgical wound of the left antecubital space. SURGEON: Tara Ceron M.D. FINDINGS: Small vessel bleeding, which was controlled with cautery. No major vessel bleeding was noted. DESCRIPTION OF PROCEDURE: The patient had an open incision from drainage of a major abscess in the antecubital space. Initial surgery was performed on 08/07/2020. He developed major bleeding from the area. Because there were multiple vessels exposed, it was elected to place a compression dressing and explore the wound in the operating room. The patient was taken to the operating room where IV sedation was carried out. A tourniquet was placed above the incision. Tourniquet was activated. The dressings were removed and the area was scrubbed with a scrub brush. There was light bleeding. After the wound was prepped and draped, compression was released and the wound was explored more. There were two small arterials that were bleeding, which were controlled with cautery. There was some early granulation tissue, which was also bleeding. This was controlled with cautery. After all compression was removed, there was no further bleeding noted. No major vessels were bleeding. The veins, which had been ligated, were still ligated and intact. The arteries appeared to be unremarkable. After observing for about 5 minutes, the wound was packed initially with Surgicel and covered with Aquacel AG. This was covered with 4 x 4 gauze, Kerlix, and Coban. The patient tolerated the procedure well. He was awakened and transferred to the postanesthetic care unit in satisfactory condition. LCS:maged Job ID: [id number] Doc ID: [id number] Tara Ceron M.D.
== END 2020-08-14 13:41 | disposition home or self-care (01) | DRG 853 ==
LOC: ED 20:56 → ICU 08-05 04:10 → MEDSUR 08-06 15:36 → ICU 08-07 16:33
PROVIDERS: ADMIT Internal Medicine; ATTEND Internal Medicine